=== PATIENT | male | born 1955 | race Caucasian/White ===

== ENCOUNTER 2017-03-24 16:09 | Outpatient (CLI) | payer OTHER | END 2017-03-24 16:10 | disposition home or self-care (01) | LOC: CTENTCT 16:09 | PROVIDERS: ATTEND Specialist | DX: J32.9 Chronic sinusitis, unspecified (principal) | CPT/HCPCS: 70486 ==

== ENCOUNTER 2017-06-24 16:59 | Outpatient (CLI) | payer BC | END 2017-06-24 17:00 | disposition home or self-care (01) | LOC: BICRAD 16:59 | PROVIDERS: ATTEND Internal Medicine | DX: R10.9 Unspecified abdominal pain (principal); K59.00 Constipation, unspecified | CPT/HCPCS: 74019 ==

== ENCOUNTER 2017-07-20 10:03 | Observation (INO) | payer BC ==
[2017-07-20 11:04] LABS: #Basophils 0.1 thou/uL (0.0-0.2); #Eosinphils 0.1 thou/uL (0.0-0.7); #Lymphocytes 1.4 thou/uL (1.20-3.40); #Monocytes 0.8 thou/uL (0.11-0.59); #Neutrophils 3.4 thou/uL (1.40-6.50); %Basophils 1.2 % (0.0-1.0); %Eosinophils 1.8 % (0.0-10.0); %Lymphocytes 24.3 % (21.0-51.0); %Monocytes 14.3 % (0.0-10.0); %Neutrophils 58.4 % (42.0-75.0); Hemoglobin 13.8 g/dL (14.0-18.0); Mean Corpuscular Hemoglobin 29.1 pg (27.0-31.0); Mean Corpuscular Volume 88.2 fl (80.0-94.0); Mean Platelet Volume 7.5 fL (7.4-10.4); Platelet Count 175 thou/uL (130-400); RBC Distribution Width 14.7 % (11.5-14.5); Red Blood Cell (RBC) Count 4.72 mill/uL (4.70-6.10); White Blood Cell (WBC) Count 5.8 thou/uL (4.8-10.8)
--- NOTE | 2017-07-20 11:07 | RAD ---
PORTABLE AP CHEST RADIOGRAPH: Date: 07-20-17 History: Chest pain, shortness of breath. Comparison: 12-24-16 FINDINGS: There is mild elevation of the left hemidiaphragm with atelectasis at the left lung base. The lungs o therwise appear clear. The cardiac silhouette is stable in size and magnified by projection. Pulmonar y vasculature is within normal limits. No other interval change. IMPRESSION: Mild elevation left hemidiaphragm with atelectasis at the left lung base. There is otherwise no acute cardiopulmonary process. POS: [facility]
[2017-07-20 11:29] LABS: ALT (SGPT) 24 U/L (8-55); AST (SGOT) 17 U/L (5-34); Alkaline Phosphatase 64 U/L (40-150); Anion Gap 16 mmol/L (10-20); BUN (Urea Nitrogen) 18 mg/dL (8.4-25.7); Bilirubin, Total 0.4 mg/dL (0.2-1.2); CK (CPK) 113 U/L (30-200); Calc. Creatinine Clearance 0 mL/min (70-130); Calcium 9.5 mg/dL (7.8-10.44); Carbon Dioxide 24 mmol/L (23-31); Chloride 103 mmol/L (98-107); Estimated GFR-MDRD Greater than 90; Globulin 2.9 g/dL (2.4-3.5); Glucose 119 mg/dL (80-115); Lipase 32 U/L (8-78); Potassium 4.3 mmol/L (3.5-5.1); Protein, Total 6.9 g/dL (5.8-8.1); Sodium 139 mmol/L (136-145)
[2017-07-20 11:33] LABS: CKMB 2.3 ng/mL (0-6.6); Troponin I Less than 0.010 ng/mL (< 0.028)
[2017-07-20] MEDS ORDERED: ISOVUE-370 76%-LOCM 1 ML ONE (12:47)
--- NOTE | 2017-07-20 13:39 | CT ---
CT ANGIOGRAM THORAX WITH IV CONTRAST AND 3D RECONSTRUCTIONS: Date: 07-20-17 History: Chest pain, shortness of breath. Comparison: 12-24-16 FINDINGS: No filling defects are seen in the pulmonary arteries to suggest pulmonary embolus. Thoracic aorta is normal in caliber without evidence of an aortic dissection. Minimal vascular calcifications are seen in the thoracic aorta. There is scattered atelectasis in the lungs bilaterally likely related to expiratory phase of imaging and respiratory motion as well. No discrete pulmonary nodule, mass, or pleural effusion is seen in the lungs bilaterally. Post-surgical changes are seen in the region of the pancreatic tail, unchanged from prior exam. There has been no interval change from prior exam. IMPRESSION: 1. No CT evidence of a pulmonary embolus. 2. Very tiny pericardial effusion. POS: [facility]
[2017-07-20] MEDS ORDERED: Nitroglycerin 0.4 MG TAB (25 Tab Bottle) ONE (15:53)
[2017-07-20] MEDS ORDERED: Ondansetron HCl/PF 4 MG/2 ML Vial ONE (16:38)
[2017-07-20 18:03] LABS: Troponin I Less than 0.010 ng/mL (< 0.028)
[2017-07-20] MEDS ORDERED: Acetaminophen 325 MG TAB PO PRN ×2 (19:16→21:16)
[2017-07-20] MEDS ORDERED: Ondansetron HCl/PF 4 MG/2 ML Vial IVP PRN ×2 (19:16→21:16)
[2017-07-20] MEDS ORDERED: Ondansetron ODT 4 MG TAB SL PRN (19:16)
[2017-07-20 20:14] VITALS: BMI 32.1
[2017-07-20] MEDS ORDERED: traMADol HCl 50 MG TAB PO PRN (20:51)
--- NOTE | 2017-07-20 20:55 | PDOC.PN ---
- Subjective Encounter Start Date: 07/20/17 Encounter Start Time: 19:00 Patient seen and examined. - Objective MAR Reviewed: Yes Vital Signs & Weight: Vital Signs (12 hours) Temp Pulse Resp BP Pulse Ox 07/20/17 19:28 98.4 F 64 18 131/69 92 L Weight Weight 224 lb 6.4 oz Result Diagrams: 07/20/17 10:59 07/20/17 10:59 Radiology Reviewed by me: Yes (CXR/CTA chest - No PE) EKG Reviewed by me: Yes (SR) Phys Exam - Physical Examination Constitutional: NAD HEENT: PERRLA, moist MMs, sclera anicteric Neck: no nodes, no JVD, supple Respiratory: no wheezing, no rales, no rhonchi, clear to auscultation bilateral Cardiovascular: RRR, no significant murmur, no rub no heaves/pulsations Gastrointestinal: soft, non-tender, no distention, positive bowel sounds Musculoskeletal: no edema Neurological: non-focal, normal sensation, moves all 4 limbs Psychiatric: normal affect, A&O x 3 Skin: no rash Dx/Plan - Plan * Dictated Laboratory Tests 07/20/17 07/20/17 07/20/17 10:48 10:59 17:25 Troponin I Less than 0.010 Less than 0.010 B-Natriuretic Peptide 28.2 Review of Systems - Review of Systems Constitutional: negative: fever, chills, sweats, weakness, malaise Eyes: negative: Pain, Vision Change, Conjunctivae Inflammation, Eyelid Inflammation, Redness ENT: negative: Ear Pain, Ear Discharge, Nose Pain, Nose Discharge, Nose Congestion, Mouth Pain, Mouth Swelling, Throat Pain, Throat Swelling, Other Respiratory: negative: Cough, Dry, Shortness of Breath, Hemoptysis, SOB with Excertion, Pleuritic Pain, Sputum, Wheezing Cardiovascular: chest pain. negative: palpitations, orthopnea, paroxysmal nocturnal dyspnea, edema, light headedness Gastrointestinal: negative: Nausea, Vomiting, Abdominal Pain, Diarrhea, Constipation, Melena, Hematochezia Genitourinary: negative: Dysuria, Frequency, Incontinence, Hematuria, Retention , Other Musculoskeletal: negative: Neck Pain, Shoulder Pain, Arm Pain, Back Pain, Hand Pain, Leg Pain, Foot Pain Skin: negative: Rash, Lesions, Misael, Bruising Neurological: negative: Weakness, Numbness, Incoordination, Change in Speech, Confusion, Seizures, Other - Medications/Allergies Allergies/Adverse Reactions: Allergies Allergy/AdvReac Type Severity Reaction Status Date / Time codeine Allergy Verified 07/20/17 20:04 Penicillins Allergy Verified 07/20/17 20:04 Sulfa (Sulfonamide Allergy Verified 07/20/17 20:04 Antibiotics) Medications: Current Medications Acetaminophen (Tylenol) 650 mg PO Q4H PRN PRN Reason: Headache/Fever or Pain Stop: 07/21/17 05:04 Divalproex Sodium (Depakote Er) 1,000 mg PO HS NAHUM Non-Formulary Medication (Canagliflozin [Invokana]) 300 mg PO DAILY NAHUM Non-Formulary Medication (Rivaroxaban [Xarelto]) 20 mg PO QPM NAHUM Olanzapine (Zyprexa) 2.5 mg PO HS NAHUM Ondansetron HCl (Zofran) 4 mg IVP Q6H PRN PRN Reason: Nausea/Vomiting Stop: 07/21/17 05:04 Ondansetron HCl (Zofran Odt) 4 mg SL Q6H PRN PRN Reason: Nausea/Vomiting Stop: 07/21/17 05:04 Propranolol HCl (Inderal La) 80 mg PO DAILY NAHUM Simvastatin (Zocor) 20 mg PO HS NAHUM Tramadol HCl (Ultram) 50 mg PO QID PRN PRN Reason: Pain
[2017-07-20 20:56] LABS: Troponin I Less than 0.010 ng/mL (< 0.028)
[2017-07-20] MEDS ORDERED: Dextrose 50% Abboject 50 ML SYRINGE SLOW IVP PRN (20:59)
[2017-07-20] MEDS ORDERED: Insulin Regular 300 UNITS/3 ML VIAL SC PRN ×2 (20:59)
[2017-07-20] MEDS ORDERED: Dextrose 5% in Water 1,000 ML IV PRN (20:59)
[2017-07-20] MEDS ORDERED: OLANZapine 2.5 MG TAB PO SCH (21:00)
[2017-07-20] MEDS ORDERED: Rivaroxaban 10 MG TAB PO SCH (21:00)
[2017-07-20] MEDS ORDERED: INSULIN DETEMIR SC SCH (21:00)
[2017-07-20] MEDS ORDERED: Simvastatin 20 MG TAB PO SCH (21:00)
[2017-07-20] MEDS ORDERED: ADMIXTURE FEE SC SCH (21:00)
[2017-07-20] MEDS ORDERED: Calcium Carbonate 500 MG ChewTAB PO PRN (21:16)
[2017-07-20] MEDS ORDERED: Ondansetron ODT 4 MG TAB PO PRN (21:16)
[2017-07-20] MEDS ORDERED: Senokot 8.6 MG TAB PO PRN (21:16)
[2017-07-20] MEDS ORDERED: Nitroglycerin 0.4 MG TAB (25 Tab Bottle) PO PRN (21:16)
--- NOTE | 2017-07-20 21:27 | HP ---
DATE OF ADMISSION: 07/20/2017 PRIMARY CARE PHYSICIAN: Dr. Jazmin Tamayo. PRIMARY DATA REPORTING ANALYST: Dr. Milan Gamez. CHIEF COMPLAINT: Chest discomfort. HISTORY OF PRESENT ILLNESS: Patient is a 62-year-old male with hypertension, diabetes mellitus type 2, history of deep venous thrombosis on anticoagulation presented to the emergency room with chest di scomfort. The chest discomfort started 2 days ago. The pain is substernal without any aggravating o r relieving factor. He had some associated shortness of breath without any diaphoresis, nausea, vomi ting, lightheadedness, or palpitations. He denies any syncope, recent immobilization, travel, orthop galdino, or paroxysmal nocturnal dyspnea. No cough, shortness of breath, wheezing reported. He is compl iant with all of his medications. In the emergency room, his initial vital signs showed temperature 98.7, respirations 18, pulse of 75, blood pressure of 143/84 with O2 saturation 95% on room air. His EKG showed sinus rhythm with right bundle branch block and left anterior fascicular block. His initial troponin was negative. He rece ived morphine with sublingual nitroglycerin, aspirin, and IV fluids in the emergency room. After nit roglycerin, his pain partially improved. PAST MEDICAL HISTORY: 1. Diabetes mellitus, type 2. 2. History of deep venous thrombosis and pulmonary embolism on Xarelto. 3. Bipolar disorder. 4. Hyperlipidemia. 5. Gastroesophageal reflux disease. 6. Benign prostatic hypertrophy. 7. History of renal stones. 8. Resting tremors. PAST SURGICAL HISTORY: 1. Appendectomy. 2. Cholecystectomy. 3. Partial pancreatectomy. 4. History of sinus surgery with septoplasty. CURRENT HOME MEDICATIONS: Xarelto 20 mg daily, Levemir 100 units b.i.d., Depakote 1000 mg at bedtime , Invokana 300 mg daily, Zyprexa 2.5 mg at bedtime, omeprazole 20 mg daily, propranolol extended-rele ase 80 mg daily, simvastatin 20 mg daily, tramadol as needed. FAMILY HISTORY: Father of bone cancer. SOCIAL HISTORY: Patient is . Denies any current use of alcohol, tobacco, or drug use. He cu rrently lives at home with his family. Review of systems, physical examination, laboratory findings, radiology examination, please refer to my progress note. IMPRESSION: 1. Chest discomfort. His chest pain is somewhat reproducible. Patient had a negative Cardiolite st ress test in 12/2016. Pulmonary embolism has been ruled out. He denies significant improvement in t he pain after nitroglycerin. Patient will be monitored overnight. I gave him an option of consultin g Cardiology while in the hospital or follow up with Dr. Gamez as outpatient. Patient prefers to see Dr. Gamez as outpatient. 2. Diabetes mellitus, type 2. We will continue Levemir with sliding scale. 3. History of deep venous thrombosis and pulmonary embolism. We will continue Xarelto. 4. Bipolar disorder. We will continue his home medications. 5. Resting tremors. 6. Hyperlipidemia. 7. Gastroesophageal reflux disease. 8. Benign prostatic hypertrophy. 9. Chronic anemia. 10. Obesity with a BMI 32.2. Plan of care was discussed with patient in detail. He stated understanding. DISPOSITION: Probably in a.m. if his troponins are negative.
[2017-07-21] MEDS ORDERED: guaiFENesin ER 600 MG TAB PO SCH ×2 (01:30→09:00)
[2017-07-21] MEDS ORDERED: Propranolol HCl LA 80 MG CAP PO SCH (09:00)
[2017-07-21] MEDS ORDERED: Canagliflozin [Invokana] 300 MG PO SCH (09:00)
[2017-07-21] MEDS ORDERED: Docusate 100 MG CAP PO SCH (09:00)
[2017-07-21] MEDS ORDERED: ADMIXTURE FEE SC SCH (09:00)
[2017-07-21] MEDS ORDERED: Famotidine 20 MG TAB PO SCH (09:00)
[2017-07-21] MEDS ORDERED: INSULIN DETEMIR SC SCH (09:00)
[2017-07-21] MEDS ORDERED: Aspirin 81 mg Enteric Coated Tablet PO SCH (09:00)
[2017-07-21 12:38] VITALS: BP 141/76; TEMP 98.4
--- NOTE | 2017-07-21 22:15 | DIS ---
DATE OF DISCHARGE: 07/21/2017 DISCHARGE DISPOSITION: Home. FOLLOWUP: 1. Follow up with primary care physician, Dr. Jazmin Tamayo in 1 week. 2. Follow up with Dr. Milan Gamez on 07/27/2017 at 2:00 p.m. INPATIENT CONSULTANTS: None. ALLERGIES: The patient is allergic to CODEINE, PENICILLIN, AND SULFA. BRIEF HOSPITAL COURSE: Patient is a 62-year-old male with hypertension, diabetes mellitus type 2, hi story of deep venous thrombosis on anticoagulation, who presented to the emergency room with chest di scomfort that has been ongoing for the last 2 days without any aggravating or relieving factor. He a lso had some associated shortness of breath, without any other symptoms. On examination, chest pain was reproducible on palpation. Please refer to the history and physical dated 07/20/2017 for further details. The patient was admitted to the hospital with a diagnosis of chest discomfort, rule out acute coronar y syndrome. Serial cardiac enzymes were normal. The patient had a negative Cardiolite stress test i n 12/2016. CT angiogram of the chest was negative for pulmonary embolism. Per patient request, he w ill follow up with Dr. Gamez next week. The patient was advised to return to emergency room if he develops any new chest pain. FINAL DIAGNOSES: 1. Chest discomfort, acute coronary syndrome ruled out. 2. Diabetes mellitus type 2. 3. History of deep venous thrombosis and pulmonary embolism on anticoagulation. 4. Bipolar disorder. 5. Hyperlipidemia. 6. Benign prostatic hypertrophy. 7. Obesity with a BMI 32.2. 8. Chronic anemia. 9. Bipolar disorder. 10. Resting tremors.
--- NOTE | 2017-07-24 13:42 | EKG ---
Test Reason : Blood Pressure : / mmHG Vent. Rate : 075 BPM Atrial Rate : 075 BPM P-R Int : 166 ms QRS Dur : 120 ms QT Int : 388 ms P-R-T Axes : 031 -45 020 degrees QTc Int : 433 ms Normal sinus rhythm Right bundle branch block Left anterior fascicular block Bifascicular block Abnormal ECG Confirmed by XAVI INIGUEZ M.D. ([id number]), clinical editor HAVEN GREENWOOD ([id number]) on 07/24/2017 1:41:43 PM Referred By: Confirmed By:XAVI INIGUEZ M.D.
== END 2017-07-21 14:36 | disposition home or self-care (01) ==
LOC: ERS 10:03 → 2SW 18:54
PROVIDERS: ADMIT Internal Medicine; ATTEND Internal Medicine
DX: R07.89 Other chest pain (principal); E11.9 Type 2 diabetes mellitus without complications; F31.9 Bipolar disorder, unspecified; E78.5 Hyperlipidemia, unspecified; N40.0 Benign prostatic hyperplasia without lower urinary tract symptoms; K21.9 Gastro-esophageal reflux disease without esophagitis; E66.9 Obesity, unspecified; D64.9 Anemia, unspecified; R25.1 Tremor, unspecified; Z68.32 Body mass index [BMI] 32.0-32.9, adult; Z79.01 Long term (current) use of anticoagulants; Z79.4 Long term (current) use of insulin; Z79.899 Other long term (current) drug therapy; Z88.0 Allergy status to penicillin; Z88.2 Allergy status to sulfonamides; Z88.5 Allergy status to narcotic agent; Z90.49 Acquired absence of other specified parts of digestive tract; Z90.411 Acquired partial absence of pancreas; Z98.890 Other specified postprocedural states; Z86.711 Personal history of pulmonary embolism; Z86.718 Personal history of other venous thrombosis and embolism
CPT/HCPCS: 36415; 36416; 71045; 71275; 80053; 82550; 82553; 83690; 83880; 84484; 85025; 93005; 94760; 96361; 96374; 96375; G0378; J1815; J2270; J2405

== ENCOUNTER 2017-07-26 10:46 | Emergency (ER) | payer BC ==
--- NOTE | 2017-07-26 13:05 | RAD ---
TWO VIEWS CHEST: HISTORY: Cough. COMPARISON: One-view chest of 07/20/2017. FINDINGS: Linear atelectasis in the left lung base. Lungs otherwise appear clear. There is a small nodule in the peripheral right lung consistent with a small granuloma. This was noted on recent CT of 07/20/19 18. The linear opacity in the lower left lung was also noted on the recent CT. No effusion. Heart size within normal range. No evidence of vascular congestion. IMPRESSION: Linear atelectasis in the left lower lung again noted. No acute interval change from recent CT of . POS: [facility]
== END 2017-07-26 13:43 | disposition home or self-care (01) ==
LOC: ERS 10:46
DX: J18.9 Pneumonia, unspecified organism (principal); E78.1 Pure hyperglyceridemia; E78.5 Hyperlipidemia, unspecified; F31.9 Bipolar disorder, unspecified; Z86.718 Personal history of other venous thrombosis and embolism; Z86.711 Personal history of pulmonary embolism
CPT/HCPCS: 71046

== ENCOUNTER 2017-08-04 14:36 | Emergency (ER) | payer BC ==
--- NOTE | 2017-08-04 15:09 | RAD ---
PORTABLE CHEST ONE VIEW: Date: 08-04-17 Time: 3:05 p.m. History: Chest pain. FINDINGS: Comparison is made with exam of 07-20-17. The heart size is normal. No focal areas of consolidation, pneumothorax, or pleural effusions are see n. IMPRESSION: No acute process. POS: [facility]
[2017-08-04 15:12] LABS: #Eosinphils 0.1 thou/uL (0.0-0.7); #Lymphocytes 2.5 thou/uL (1.20-3.40); #Monocytes 0.7 thou/uL (0.11-0.59); #Neutrophils 5.9 thou/uL (1.40-6.50); %Basophils 0.4 % (0.0-1.0); %Eosinophils 0.6 % (0.0-10.0); %Lymphocytes 27.1 % (21.0-51.0); %Monocytes 7.8 % (0.0-10.0); %Neutrophils 64.1 % (42.0-75.0); Hemoglobin 13.9 g/dL (14.0-18.0); Mean Corpuscular HGB CONC 32.7 g/dL (32.0-36.0); Mean Corpuscular Hemoglobin 29.1 pg (27.0-31.0); Mean Platelet Volume 7.7 fL (7.4-10.4); Platelet Count 193 thou/uL (130-400); RBC Distribution Width 14.9 % (11.5-14.5); Red Blood Cell (RBC) Count 4.78 mill/uL (4.70-6.10); White Blood Cell (WBC) Count 9.3 thou/uL (4.8-10.8)
[2017-08-04 15:28] LABS: ALT (SGPT) 28 U/L (8-55); AST (SGOT) 24 U/L (5-34); Alkaline Phosphatase 55 U/L (40-150); Anion Gap 17 mmol/L (10-20); BUN (Urea Nitrogen) 20 mg/dL (8.4-25.7); Bilirubin, Total 0.4 mg/dL (0.2-1.2); CK (CPK) 167 U/L (30-200); Calc. Creatinine Clearance 0 mL/min (70-130); Calcium 9.4 mg/dL (7.8-10.44); Carbon Dioxide 22 mmol/L (23-31); Chloride 105 mmol/L (98-107); Estimated GFR-MDRD Greater than 90; Glucose 146 mg/dL (80-115); Potassium 4.4 mmol/L (3.5-5.1); Sodium 140 mmol/L (136-145)
[2017-08-04 15:31] LABS: CKMB 2.6 ng/mL (0-6.6); Troponin I Less than 0.010 ng/mL (< 0.028)
[2017-08-04 21:22] LABS: Bilirubin Negative (Negative); Blood, Urine Negative (Negative); Clarity CLEAR (Clear); Glucose, Urine (Dipstick) >=1000 mg/dL (Negative); Leukocyte Negative (Negative); Nitrite Negative (Negative); Protein, Urine (Dipstick) Negative (Neg-Trace); Specific Gravity, Urine 1.034 (1.002-1.036); pH, Urine 6.5 (5.0-9.0)
== END 2017-08-04 23:42 | disposition home or self-care (01) ==
LOC: ERS 14:36
DX: R07.81 Pleurodynia (principal); E11.9 Type 2 diabetes mellitus without complications; E78.5 Hyperlipidemia, unspecified; E78.1 Pure hyperglyceridemia; I10 Essential (primary) hypertension; F31.9 Bipolar disorder, unspecified; Z79.4 Long term (current) use of insulin; Z79.01 Long term (current) use of anticoagulants; Z79.899 Other long term (current) drug therapy; Z86.711 Personal history of pulmonary embolism; Z86.718 Personal history of other venous thrombosis and embolism
CPT/HCPCS: 36415; 71045; 80053; 81003; 82550; 82553; 83605; 84484; 85025; 93005; 96360; 96361

== ENCOUNTER 2017-12-29 13:27 | Emergency (ER) | payer BC ==
[2017-12-29 13:52] LABS: #Eosinphils 0.1 thou/uL (0.0-0.7); #Lymphocytes 2.1 thou/uL (1.20-3.40); #Monocytes 0.6 thou/uL (0.11-0.59); #Neutrophils 1.8 thou/uL (1.40-6.50); %Basophils 0.5 % (0.0-1.0); %Eosinophils 1.5 % (0.0-10.0); %Lymphocytes 45.1 % (21.0-51.0); %Monocytes 12.7 % (0.0-10.0); %Neutrophils 40.3 % (42.0-75.0); Hemoglobin 13.3 g/dL (14.0-18.0); Mean Corpuscular HGB CONC 33.8 g/dL (32.0-36.0); Mean Corpuscular Hemoglobin 28.1 pg (27.0-31.0); Mean Corpuscular Volume 83.1 fL (78.0-98.0); Mean Platelet Volume 7.8 fL (7.4-10.4); Platelet Count 200 thou/uL (130-400); RBC Distribution Width 14.9 % (11.5-14.5); Red Blood Cell (RBC) Count 4.74 mill/uL (4.70-6.10); White Blood Cell (WBC) Count 4.6 thou/uL (4.8-10.8)
--- NOTE | 2017-12-29 13:56 | RAD ---
FRONTAL VIEW CHEST: Date: 12/29/17 COMPARISON: 08/04/17. INDICATION: Chest pain. FINDINGS: Minimal patchy density of left lung base present. Right lung is grossly clear. Cardiac silhouette is accentuated by portable technique. There are leads overlying the chest, limiting detail. IMPRESSION: Mild left basilar atelectasis. POS: [place]
[2017-12-29 14:19] LABS: ALT (SGPT) 20 U/L (8-55); AST (SGOT) 19 U/L (5-34); Albumin 4.3 g/dL (3.4-4.8); Alkaline Phosphatase 59 U/L (40-150); Anion Gap 17 mmol/L (10-20); BUN (Urea Nitrogen) 21 mg/dL (8.4-25.7); Bilirubin, Total 0.5 mg/dL (0.2-1.2); CK (CPK) 124 U/L (30-200); Calc. Creatinine Clearance 0 mL/min (70-130); Calcium 9.8 mg/dL (7.8-10.44); Carbon Dioxide 22 mmol/L (23-31); Chloride 105 mmol/L (98-107); Estimated GFR-MDRD Greater than 90; Globulin 3.3 g/dL (2.4-3.5); Glucose 178 mg/dL (80-115); Potassium 4.7 mmol/L (3.5-5.1); Protein, Total 7.6 g/dL (5.8-8.1); Sodium 139 mmol/L (136-145)
[2017-12-29 14:23] LABS: CKMB 2.4 ng/mL (0-6.6); Troponin I Less than 0.010 ng/mL (< 0.028)
[2017-12-29] MEDS ORDERED: Morphine 4 MG/ML VIAL ONE (15:13)
== END 2017-12-29 16:33 | disposition home or self-care (01) ==
LOC: ERS 13:27
DX: R07.9 Chest pain, unspecified (principal); K02.9 Dental caries, unspecified; R53.81 Other malaise; E11.9 Type 2 diabetes mellitus without complications; E78.5 Hyperlipidemia, unspecified; I10 Essential (primary) hypertension; F31.9 Bipolar disorder, unspecified; Z79.1 Long term (current) use of non-steroidal anti-inflammatories (NSAID); Z79.899 Other long term (current) drug therapy
CPT/HCPCS: 71045; 80053; 82553; 84484; 85025; 93005; 96361; 96374; J2270

== ENCOUNTER 2018-01-06 16:17 | Inpatient (IN) | payer BC ==
[~2018-01-06 16:17] MED LIST: Iopamidol 370 76% 100 ML VIAL ONE
[2018-01-06] MEDS ORDERED: Ondansetron HCl/PF 4 MG/2 ML Vial ONE ×2 (16:38→16:39)
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
--- NOTE | 2018-01-06 17:19 | CT ---
CERVICAL SPINE CT NONCONTRAST: 01/06/18 CLINICAL HISTORY: Injury with neck pain. FINDINGS: There is no evidence of acute fracture. Prominent end plate degenerative changes are present centered at the C5-6 level. Trace spondylolisthesis at C3-4 is seen. Craniocervical junction is intact. IMPRESSION: Degenerative change of the cervical spine, without acute fracture identified. POS: [facility]
[2018-01-06 17:49] LABS: #Eosinphils 0.1 thou/uL (0.0-0.7); #Lymphocytes 1.6 thou/uL (1.20-3.40); #Monocytes 0.6 thou/uL (0.11-0.59); #Neutrophils 2.3 thou/uL (1.40-6.50); %Basophils 0.7 % (0.0-1.0); %Eosinophils 1.7 % (0.0-10.0); %Lymphocytes 34.6 % (21.0-51.0); %Monocytes 13.2 % (0.0-10.0); %Neutrophils 49.9 % (42.0-75.0); Hemoglobin 12.3 g/dL (14.0-18.0); Mean Corpuscular HGB CONC 34.3 g/dL (32.0-36.0); Mean Corpuscular Hemoglobin 28.4 pg (27.0-31.0); Mean Corpuscular Volume 82.8 fL (78.0-98.0); Mean Platelet Volume 7.8 fL (7.4-10.4); Platelet Count 170 thou/uL (130-400); RBC Distribution Width 14.8 % (11.5-14.5); Red Blood Cell (RBC) Count 4.32 mill/uL (4.70-6.10); White Blood Cell (WBC) Count 4.5 thou/uL (4.8-10.8)
[2018-01-06 18:14] LABS: ALT (SGPT) 20 U/L (8-55); AST (SGOT) 17 U/L (5-34); Albumin 3.8 g/dL (3.4-4.8); Alkaline Phosphatase 49 U/L (40-150); Anion Gap 17 mmol/L (10-20); BUN (Urea Nitrogen) 22 mg/dL (8.4-25.7); Bilirubin, Total 0.5 mg/dL (0.2-1.2); Calc. Creatinine Clearance 0 mL/min (70-130); Calcium 8.9 mg/dL (7.8-10.44); Carbon Dioxide 20 mmol/L (23-31); Chloride 103 mmol/L (98-107); Estimated GFR-MDRD Greater than 90; Globulin 2.7 g/dL (2.4-3.5); Glucose 119 mg/dL (80-115); Lipase 42 U/L (8-78); Potassium 4.1 mmol/L (3.5-5.1); Protein, Total 6.5 g/dL (5.8-8.1); Sodium 136 mmol/L (136-145)
[2018-01-06 18:18] LABS: Troponin I Less than 0.010 ng/mL (< 0.028)
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
[2018-01-06] MEDS ORDERED: Acetaminophen 500 MG TAB ONE (18:42)
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
[2018-01-06] MEDS ORDERED: Ondansetron HCl/PF 4 MG/2 ML Vial IVP PRN (19:44)
[2018-01-06] MEDS ORDERED: Dextrose 5% in Water 1,000 ML IV PRN (19:44)
[2018-01-06] MEDS ORDERED: HumaLOG 300 UNITS/3 ML VIAL SC PRN (19:44)
[2018-01-06] MEDS ORDERED: Dextrose 50% Abboject 50 ML SYRINGE SLOW IVP PRN (19:44)
[2018-01-06 20:29] VITALS: BMI 31.6
[2018-01-06 20:56] LABS: Troponin I Less than 0.010 ng/mL (< 0.028)
[2018-01-06] MEDS: OLANZapine 2.5 MG TAB PO SCH (22:38)
[2018-01-06] MEDS: Simvastatin 20 MG TAB PO SCH (22:38)
[2018-01-07 00:09] LABS: Troponin I Less than 0.010 ng/mL (< 0.028)
[2018-01-07] MEDS: traMADol HCl 50 MG TAB PO PRN ×2 (03:35→09:22)
[2018-01-07] MEDS: Acetaminophen 325 MG TAB PO PRN ×2 (03:35→20:40)
[2018-01-07 05:17] LABS: #Eosinphils 0.1 thou/uL (0.0-0.7); #Lymphocytes 2.1 thou/uL (1.20-3.40); #Monocytes 0.6 thou/uL (0.11-0.59); #Neutrophils 1.9 thou/uL (1.40-6.50); %Eosinophils 1.1 % (0.0-10.0); %Lymphocytes 44.9 % (21.0-51.0); %Monocytes 12.5 % (0.0-10.0); %Neutrophils 40.5 % (42.0-75.0); Mean Corpuscular HGB CONC 33.9 g/dL (32.0-36.0); Mean Corpuscular Hemoglobin 28.1 pg (27.0-31.0); Mean Corpuscular Volume 82.8 fL (78.0-98.0); Mean Platelet Volume 8.7 fL (7.4-10.4); Platelet Count 180 thou/uL (130-400); RBC Distribution Width 15.1 % (11.5-14.5); Red Blood Cell (RBC) Count 4.27 mill/uL (4.70-6.10); White Blood Cell (WBC) Count 4.7 thou/uL (4.8-10.8)
[2018-01-07 05:39] LABS: Anion Gap 13 mmol/L (10-20); BUN (Urea Nitrogen) 17 mg/dL (8.4-25.7); Calc. Creatinine Clearance 157 mL/min (70-130); Carbon Dioxide 25 mmol/L (23-31); Cardiac Risk 5.3 (Less than 4.5); Chloride 105 mmol/L (98-107); Cholesterol 112 mg/dl (< 200 Desired); Estimated GFR-MDRD Greater than 90; Glucose 92 mg/dL (80-115); HDL Cholesterol 21 mg/dL (>60 Neg Risk); LDL Cholesterol, Calculated 21 mg/dL; Potassium 4.2 mmol/L (3.5-5.1); Sodium 139 mmol/L (136-145); Triglycerides 349 mg/dL (Less than 150)
[2018-01-07] MEDS ORDERED: Aspirin 325 MG TAB PO SCH (09:00)
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
[2018-01-07] MEDS: Meclizine HCl 25 MG TAB PO PRN (15:00)
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
[2018-01-07] MEDS: Rivaroxaban 10 MG TAB PO SCH (16:59)
--- NOTE | 2018-01-07 20:30 | PDOC.PN ---
- Subjective Encounter Start Date: 01/07/18 Encounter Start Time: 13:00 Patient seen and examined for CP. c/o THOMPSON with Dizziness - unable to walk due to this. No overnight events - Objective Resuscitation Status: Resuscitation Status FULL:Full Resuscitation MAR Reviewed: Yes Vital Signs & Weight: Vital Signs (12 hours) Temp Pulse Resp BP BP BP BP 01/07/18 19:39 98.6 F 68 20 141/69 H 01/07/18 16:00 99.2 F 70 16 140/68 01/07/18 11:55 135/74 133/74 133/74 01/07/18 11:26 98.1 F 66 18 140/73 Pulse Ox 01/07/18 19:39 93 L 01/07/18 16:00 97 01/07/18 11:55 01/07/18 11:26 94 L Weight Weight 220 lb 12.8 oz I&O: 01/06/18 01/07/18 01/08/18 06:59 06:59 06:59 Intake Total 520 1700 Balance 520 1700 Result Diagrams: 01/07/18 04:27 01/07/18 04:27 Additional Labs: Accuchecks 01/07/18 01/07/18 01/06/18 16:49 10:49 21:07 POC Glucose 124 H 88 76 EKG Reviewed by me: Yes (Tele SR) Phys Exam - Physical Examination Constitutional: NAD Respiratory: no wheezing, no rhonchi Cardiovascular: RRR, no rub Gastrointestinal: soft, non-tender, no distention, positive bowel sounds Musculoskeletal: no edema Neurological: non-focal, normal sensation, moves all 4 limbs Psychiatric: normal affect, A&O x 3 Dx/Plan - Plan IMPRESSION: 1. CP - Troponins negative 2. Persistent Dizziness with Headache 3. h/o DVT/PE on Xarelto 4. DM2 5. HTN 6. HLD PLAN: MRI brain to r/o SAH Await Echo Cont other meds as below PT consult DC ASA Review of Systems - Review of Systems Respiratory: negative: Cough, Dry, Shortness of Breath, Hemoptysis, SOB with Excertion, Pleuritic Pain, Sputum, Wheezing Cardiovascular: negative: chest pain, palpitations, orthopnea, paroxysmal nocturnal dyspnea, edema, light headedness, other Gastrointestinal: negative: Nausea, Vomiting, Abdominal Pain, Diarrhea, Constipation, Melena, Hematochezia, Other - Medications/Allergies Allergies/Adverse Reactions: Allergies Allergy/AdvReac Type Severity Reaction Status Date / Time codeine Allergy Nausea Verified 01/06/18 20:34 Penicillins Allergy Nausea Verified 01/06/18 20:34 Sulfa (Sulfonamide Allergy Nausea Verified 01/06/18 20:34 Antibiotics) Medications: Current Medications Acetaminophen (Tylenol) 650 mg PO Q4H PRN PRN Reason: Headache/Fever or Pain Last Admin: 01/07/18 03:35 Dose: 650 mg Dextrose/Water (Dextrose 50%) 25 gm SLOW IVP PRN PRN PRN Reason: Hypoglycemia Divalproex Sodium (Depakote Er) 1,000 mg PO HS [facility] Last Admin: 01/06/18 22:38 Dose: 1,000 mg Glucagon (Glucagon) 1 mg IM PRN PRN PRN Reason: Hypoglycemia Dextrose/Water (D5w) 1,000 mls @ 0 mls/hr IV .Q0M PRN PRN Reason: Hypoglycemia Insulin Human Lispro (Humalog) 0 units SC .MILD SLIDING SCALE PRN PRN Reason: Mild Correctional Scale Meclizine HCl (Antivert) 25 mg PO Q8H PRN PRN Reason: Dizziness Last Admin: 01/07/18 15:00 Dose: 25 mg Olanzapine (Zyprexa) 2.5 mg PO HS [facility] Last Admin: 01/06/18 22:38 Dose: 2.5 mg Ondansetron HCl (Zofran) 4 mg IVP Q6H PRN PRN Reason: Nausea/Vomiting Pantoprazole Sodium (Protonix) 40 mg PO DAILY [facility] Last Admin: 01/07/18 09:23 Dose: 40 mg Rivaroxaban (Xarelto) 20 mg PO 1700 [facility] Last Admin: 01/07/18 16:59 Dose: Not Given Simvastatin (Zocor) 20 mg PO HS [facility] Last Admin: 01/06/18 22:38 Dose: 20 mg Tramadol HCl (Ultram) 50 mg PO QID PRN PRN Reason: Pain Last Admin: 01/07/18 09:22 Dose: 50 mg
[2018-01-07] MEDS: OLANZapine 2.5 MG TAB PO SCH (20:41)
[2018-01-07] MEDS: Simvastatin 20 MG TAB PO SCH (20:41)
[2018-01-08] MEDS: Meclizine HCl 25 MG TAB PO PRN ×2 (08:16→17:42)
[2018-01-08] MEDS: traMADol HCl 50 MG TAB PO PRN ×2 (08:16→14:13)
[2018-01-08] MEDS: Rivaroxaban 10 MG TAB PO SCH (12:04)
[2018-01-08] MEDS: Acetaminophen 325 MG TAB PO PRN ×2 (12:07→20:13)
[2018-01-08] MEDS: Simvastatin 20 MG TAB PO SCH (20:13)
[2018-01-08] MEDS: OLANZapine 2.5 MG TAB PO SCH (20:13)
--- NOTE | 2018-01-08 22:12 | PDOC.PN ---
- Subjective Encounter Start Date: 01/08/18 Encounter Start Time: 12:00 Patient seen and examined for CP. Has Left sided THOMPSON with Dizziness - worse on ambulation. No CP. No overnight events - Objective Resuscitation Status: Resuscitation Status FULL:Full Resuscitation MAR Reviewed: Yes Vital Signs & Weight: Vital Signs (12 hours) Temp Pulse Pulse Pulse Resp BP BP 01/08/18 19:26 98.4 F 69 16 01/08/18 18:59 98.6 F 72 18 01/08/18 16:18 72 77 136/98 H 139/77 01/08/18 16:00 01/08/18 15:59 98.4 F 69 16 01/08/18 11:49 98.6 F 75 20 BP BP BP Pulse Ox Pulse Ox 01/08/18 19:26 01/08/18 18:59 149/75 H 95 01/08/18 16:18 95 01/08/18 16:00 97 01/08/18 15:59 139/78 88 L 01/08/18 11:49 147/69 H 95 Weight Weight 220 lb 12.8 oz I&O: 01/07/18 01/08/18 01/09/18 06:59 06:59 06:59 Intake Total 520 1940 Balance 520 1940 Result Diagrams: 01/07/18 04:27 01/07/18 04:27 Additional Labs: Accuchecks 01/08/18 01/08/18 01/08/18 20:44 17:00 12:05 POC Glucose 154 H 116 H 168 H 01/08/18 01/08/18 09:23 05:51 POC Glucose 202 H 142 H EKG Reviewed by me: Yes (Tele SR) Phys Exam - Physical Examination Constitutional: NAD Respiratory: no wheezing, no rhonchi Cardiovascular: RRR, no rub Gastrointestinal: soft, non-tender, positive bowel sounds Musculoskeletal: no edema Neurological: moves all 4 limbs Dx/Plan - Plan IMPRESSION: 1. CP - Troponins negative 2. Persistent Dizziness with Headache - due to Postconcussion syndrome 3. h/o DVT/PE on Xarelto 4. DM2 5. HTN 6. HLD PLAN: MRI brain reviewed Dr Quiroz is ok with continuing Anticoag Echo - normal EF with diastolic dysfunction Cont other meds as below Cont to ambulate with PT Not stable to dc home due to risk of fall while on anticoag Will reassess in AM Change to inpatient status Review of Systems - Review of Systems Cardiovascular: negative: chest pain, palpitations, orthopnea, paroxysmal nocturnal dyspnea, edema, light headedness, other Gastrointestinal: negative: Nausea, Vomiting, Abdominal Pain, Diarrhea, Constipation, Melena, Hematochezia, Other - Medications/Allergies Allergies/Adverse Reactions: Allergies Allergy/AdvReac Type Severity Reaction Status Date / Time codeine Allergy Nausea Verified 01/06/18 20:34 Penicillins Allergy Nausea Verified 01/06/18 20:34 Sulfa (Sulfonamide Allergy Nausea Verified 01/06/18 20:34 Antibiotics) Medications: Current Medications Acetaminophen (Tylenol) 650 mg PO Q4H PRN PRN Reason: Headache/Fever or Pain Last Admin: 01/08/18 20:13 Dose: 650 mg Dextrose/Water (Dextrose 50%) 25 gm SLOW IVP PRN PRN PRN Reason: Hypoglycemia Divalproex Sodium (Depakote Er) 1,[address] [facility] Last Admin: 01/08/18 20:13 Dose: 1,000 mg Docusate Sodium (Colace) 100 mg PO DAILY [facility] Glucagon (Glucagon) 1 mg IM PRN PRN PRN Reason: Hypoglycemia Dextrose/Water (D5w) 1,000 mls @ 0 mls/hr IV .Q0M PRN PRN Reason: Hypoglycemia Insulin Human Lispro (Humalog) 0 units SC .MILD SLIDING SCALE PRN PRN Reason: Mild Correctional Scale Meclizine HCl (Antivert) 25 mg PO Q8H PRN PRN Reason: Dizziness Last Admin: 01/08/18 17:42 Dose: 25 mg Olanzapine (Zyprexa) 2.[address] [facility] Last Admin: 01/08/18 20:13 Dose: 2.5 mg Ondansetron HCl (Zofran) 4 mg IVP Q6H PRN PRN Reason: Nausea/Vomiting Pantoprazole Sodium (Protonix) 40 mg PO DAILY [facility] Last Admin: 01/08/18 08:16 Dose: 40 mg Rivaroxaban (Xarelto) 20 mg PO 1700 [facility] Last Admin: 01/08/18 12:04 Dose: 20 mg Simvastatin (Zocor) [address] [facility] Last Admin: 01/08/18 20:13 Dose: 20 mg Tramadol HCl (Ultram) 50 mg PO QID PRN PRN Reason: Pain Last Admin: 01/08/18 14:13 Dose: 50 mg
[2018-01-09] MEDS ORDERED: Propranolol HCl LA 80 MG CAP PO SCH (09:00)
[2018-01-09] MEDS ORDERED: Docusate 100 MG CAP PO SCH (09:00)
[2018-01-09] MEDS: Acetaminophen 325 MG TAB PO PRN (10:30)
[2018-01-09] MEDS: Propranolol HCl 20 MG TAB PO SCH ×2 (10:30→21:05)
[2018-01-09] MEDS: Polyethylene Glycol 3350 17 GM Packet PO SCH (10:30)
[2018-01-09] MEDS: Tamsulosin HCl 0.4 MG CAP PO SCH (10:30)
[2018-01-09] MEDS: Senokot S 8.6-50 MG TAB PO SCH ×2 (10:31→21:06)
[2018-01-09] MEDS: Rivaroxaban 10 MG TAB PO SCH (19:12)
[2018-01-09] MEDS: Insulin Regular 300 UNITS/3 ML VIAL SC PRN ×2 (19:12→21:06)
[2018-01-09] MEDS ORDERED: Insulin Glargine 25 UNITS in Pre-Filled Syringe SC SCH (21:00)
[2018-01-09] MEDS: OLANZapine 2.5 MG TAB PO SCH (21:05)
[2018-01-09] MEDS: Simvastatin 20 MG TAB PO SCH (21:05)
--- NOTE | 2018-01-09 22:43 | PDOC.PN ---
- Subjective Encounter Start Date: 01/09/18 Encounter Start Time: 13:00 Patient seen and examined for CP/Dizziness. Dizziness and headache still the same. Unstable gait per patient report. No overnight events - Objective Resuscitation Status: Resuscitation Status FULL:Full Resuscitation MAR Reviewed: Yes Vital Signs & Weight: Vital Signs (12 hours) Temp Pulse Resp BP BP Pulse Ox 01/09/18 20:00 98.9 F 74 17 01/09/18 18:30 98.9 F 74 17 140/67 88 L 01/09/18 15:57 99.1 F 72 24 H 154/74 H 154/74 H 91 L 01/09/18 11:27 97.4 F L 72 17 148/71 H 91 L Weight Weight 220 lb 12.8 oz I&O: 01/08/18 01/09/18 01/10/18 06:59 06:59 06:59 Intake Total 1939 Balance 1939 Result Diagrams: 01/07/18 04:27 01/07/18 04:27 Additional Labs: Accuchecks 01/09/18 01/09/18 01/09/18 21:03 17:06 11:11 POC Glucose 209 H 197 H 241 H 01/09/18 03:32 POC Glucose 169 H EKG Reviewed by me: Yes (Tele SR) Phys Exam - Physical Examination Constitutional: NAD Respiratory: no wheezing, no rhonchi Cardiovascular: RRR, no rub Gastrointestinal: soft, non-tender, positive bowel sounds Musculoskeletal: no edema Neurological: non-focal, normal sensation, moves all 4 limbs Psychiatric: normal affect, A&O x 3 Dx/Plan - Plan IMPRESSION: 1. CP - Troponins negative - Normal EF on Echo 2. Persistent Dizziness with Headache - due to Postconcussion syndrome 3. h/o DVT/PE on Xarelto 4. DM2 - on sliding scale 5. HTN 6. HLD PLAN: Start Lantus at 25 units BID Dizziness and Balance program as outpt Still has dizziness with headache - worse on ambulation Cont to ambulate with PT Cont other meds as below Cont to monitor DC later today or in AM if stable Fall precautions Cont Anticoag Neurology input appreciated Resume Inderal and Flomax Review of Systems - Review of Systems Respiratory: negative: Cough, Dry, Shortness of Breath, Hemoptysis, SOB with Excertion, Pleuritic Pain, Sputum, Wheezing Cardiovascular: negative: chest pain, palpitations, orthopnea, paroxysmal nocturnal dyspnea, edema, light headedness, other - Medications/Allergies Allergies/Adverse Reactions: Allergies Allergy/AdvReac Type Severity Reaction Status Date / Time codeine Allergy Nausea Verified 01/06/18 20:34 Penicillins Allergy Nausea Verified 01/06/18 20:34 Sulfa (Sulfonamide Allergy Nausea Verified 01/06/18 20:34 Antibiotics) Medications: Current Medications Acetaminophen (Tylenol) 650 mg PO Q4H PRN PRN Reason: Headache/Fever or Pain Last Admin: 01/09/18 10:30 Dose: 650 mg Dextrose/Water (Dextrose 50%) 25 gm SLOW IVP PRN PRN PRN Reason: Hypoglycemia Divalproex Sodium (Depakote Er) 1,000 mg PO [facility] Last Admin: 01/09/18 21:05 Dose: 1,000 mg Glucagon (Glucagon) 1 mg IM PRN PRN PRN Reason: Hypoglycemia Dextrose/Water (D5w) 1,000 mls @ 0 mls/hr IV .Q0M PRN PRN Reason: Hypoglycemia Insulin Glargine 25 units/ (Miscellaneous Medication) 0.25 mls @ 0 mls/hr SC [facility] Last Admin: 01/09/18 21:06 Dose: 0.25 mls Insulin Glargine 25 units/ (Miscellaneous Medication) 0.25 mls @ 0 mls/hr [place] [facility] Insulin Human Regular (Humulin R) 0 units SC .MODERATE SLIDING SC PRN PRN Reason: Moderate Correctional Scale Last Admin: 01/09/18 19:12 Dose: 2 units Insulin Human Regular (Humulin R) 0 units SC .BEDTIME SLIDING SC PRN PRN Reason: Bedtime Correctional Scale Last Admin: 01/09/18 21:06 Dose: 2 unit Meclizine HCl (Antivert) 25 mg PO Q8H PRN PRN Reason: Dizziness Last Admin: 01/08/18 17:42 Dose: 25 mg Olanzapine (Zyprexa) 2.5 mg PO [facility] Last Admin: 01/09/18 21:05 Dose: 2.5 mg Ondansetron HCl (Zofran) 4 mg IVP Q6H PRN PRN Reason: Nausea/Vomiting Pantoprazole Sodium (Protonix) 40 mg PO DAILY [facility] Last Admin: 01/09/18 10:30 Dose: 40 mg Polyethylene Glycol (Miralax) 17 gm PO DAILY [facility] Last Admin: 01/09/18 10:30 Dose: 17 gm Propranolol HCl (Inderal) 20 mg PO BID [facility] Last Admin: 01/09/18 21:05 Dose: 20 mg Rivaroxaban (Xarelto) 20 mg PO 1700 [facility] Last Admin: 01/09/18 19:12 Dose: 20 mg Senna/Docusate Sodium (Senokot S) 1 tab PO BID [facility] Last Admin: 01/09/18 21:06 Dose: Not Given Simvastatin (Zocor) 20 mg PO HS [facility] Last Admin: 01/09/18 21:05 Dose: 20 mg Tamsulosin HCl (Flomax) 0.4 mg PO DAILY [facility] Last Admin: 01/09/18 10:30 Dose: 0.4 mg Tramadol HCl (Ultram) 50 mg PO QID PRN PRN Reason: Pain Last Admin: 01/08/18 14:13 Dose: 50 mg
[2018-01-09] MEDS ORDERED: Bisacodyl 10 MG SUPP PR PRN (22:47)
[2018-01-10] MEDS: Insulin Regular 300 UNITS/3 ML VIAL SC PRN ×2 (02:17→06:25)
[2018-01-10] MEDS ORDERED: Insulin Glargine 25 UNITS in Pre-Filled Syringe SC SCH (09:00)
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
[2018-01-10] MEDS: Senokot S 8.6-50 MG TAB PO SCH (09:22)
[2018-01-10] MEDS: Tamsulosin HCl 0.4 MG CAP PO SCH (09:23)
[2018-01-10] MEDS: Propranolol HCl 20 MG TAB PO SCH (09:23)
[2018-01-10] MEDS: Polyethylene Glycol 3350 17 GM Packet PO SCH (09:23)
[2018-01-10] MEDS: Acetaminophen 325 MG TAB PO PRN (09:32)
[2018-01-10 16:09] VITALS: BP 132/73; TEMP 98.5
[2018-01-10] MEDS: Rivaroxaban 10 MG TAB PO SCH (17:48)
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
== END 2018-01-10 18:47 | disposition home or self-care (01) | DRG 313 ==
LOC: ERS 16:17 → 2SW 19:23 → OBSVTOIN 01-08 13:56
PROVIDERS: ADMIT Internal Medicine; ATTEND Internal Medicine
DX: R07.9 Chest pain, unspecified (principal); E11.9 Type 2 diabetes mellitus without complications; I10 Essential (primary) hypertension; E78.5 Hyperlipidemia, unspecified; R42 Dizziness and giddiness; F07.81 Postconcussional syndrome; V29.40XD Motorcycle driver injured in collision with unspecified motor vehicles in traffic accident, subsequent encounter
CPT/HCPCS: 36415; 36416; 70450; 70551; 71260; 72125; 74177; 80048; 80053; 80061; 82553; 83690; 84484; 85025; 85730; 93005; 93306; 96361; 96374; 96375; G8978-GP-CI; G8979-GP-CI; G8980-GP-CI; J1815; J2270; J2405

== ENCOUNTER 2018-01-16 23:18 | Observation (INO) | payer BC ==
[2018-01-17] MEDS ORDERED: diphenhydrAMINE 50 MG/ML VIAL ONE (00:50)
[2018-01-17] MEDS ORDERED: Metoclopramide 10 MG/10 ML UDCUP ONE (00:50)
[2018-01-17] MEDS ORDERED: Metoclopramide HCl 10 MG/2 ML VIAL ONE (00:51)
[2018-01-17 01:03] LABS: #Eosinphils 0.1 thou/uL (0.0-0.7); #Lymphocytes 1.8 thou/uL (1.20-3.40); #Monocytes 0.4 thou/uL (0.11-0.59); #Neutrophils 2.7 thou/uL (1.40-6.50); %Basophils 0.9 % (0.0-1.0); %Eosinophils 1.3 % (0.0-10.0); %Lymphocytes 35.9 % (21.0-51.0); %Monocytes 8.7 % (0.0-10.0); %Neutrophils 53.1 % (42.0-75.0); Hemoglobin 12.7 g/dL (14.0-18.0); Mean Corpuscular HGB CONC 33.5 g/dL (32.0-36.0); Mean Corpuscular Hemoglobin 27.8 pg (27.0-31.0); Mean Corpuscular Volume 82.9 fL (78.0-98.0); Mean Platelet Volume 7.7 fL (7.4-10.4); Platelet Count 187 thou/uL (130-400); RBC Distribution Width 15.3 % (11.5-14.5); Red Blood Cell (RBC) Count 4.58 mill/uL (4.70-6.10)
[2018-01-17 01:13] LABS: INR-International Normal Ratio 1.9; Prothrombin Time 22.2 SEC (12.0-14.7)
[2018-01-17 01:26] LABS: ALT (SGPT) 21 U/L (8-55); AST (SGOT) 17 U/L (5-34); Albumin 3.9 g/dL (3.4-4.8); Alkaline Phosphatase 59 U/L (40-150); Anion Gap 16 mmol/L (10-20); BUN (Urea Nitrogen) 14 mg/dL (8.4-25.7); Bilirubin, Total 0.4 mg/dL (0.2-1.2); Calc. Creatinine Clearance 0 mL/min (70-130); Calcium 9.2 mg/dL (7.8-10.44); Carbon Dioxide 24 mmol/L (23-31); Chloride 104 mmol/L (98-107); Estimated GFR-MDRD Greater than 90; Globulin 2.8 g/dL (2.4-3.5); Glucose 232 mg/dL (80-115); Potassium 3.9 mmol/L (3.5-5.1); Protein, Total 6.7 g/dL (5.8-8.1); Sodium 140 mmol/L (136-145)
[2018-01-17 01:30] LABS: CKMB 1.6 ng/mL (0-6.6); Troponin I Less than 0.010 ng/mL (< 0.028)
[2018-01-17] MEDS ORDERED: Fentanyl 100 MCG/2 ML VIAL ONE (02:55)
[2018-01-17 05:54] LABS: Troponin I Less than 0.010 ng/mL (< 0.028)
--- NOTE | 2018-01-17 07:57 | RAD ---
CHEST 1 VIEW: HISTORY: Chest pain. COMPARISON: 12/29/17. FINDINGS: Lungs are hypoinflated with vascular crowding. No pneumothorax or effusion. IMPRESSION: No acute intrathoracic abnormality. POS: [facility]
[2018-01-17 08:34] LABS: Troponin I Less than 0.010 ng/mL (< 0.028)
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
[2018-01-17] MEDS ORDERED: Fentanyl 100 MCG/2 ML VIAL SLOW IVP PRN (09:44)
[2018-01-17] MEDS ORDERED: ISOVUE-370 76%-LOCM 1 ML ONE (09:58)
[2018-01-17] MEDS ORDERED: Dextrose 50% Abboject 50 ML SYRINGE SLOW IVP PRN (10:13)
[2018-01-17] MEDS ORDERED: Dextrose 5% in Water 1,000 ML IV PRN (10:13)
[2018-01-17] MEDS ORDERED: Insulin Regular 300 UNITS/3 ML VIAL SC PRN ×2 (10:13)
[2018-01-17] MEDS ORDERED: Acetaminophen 325 MG TAB PO PRN (10:15)
[2018-01-17] MEDS ORDERED: Ondansetron HCl/PF 4 MG/2 ML Vial IVP PRN (10:15)
[2018-01-17] MEDS ORDERED: Calcium Carbonate 500 MG ChewTAB PO PRN (10:15)
[2018-01-17] MEDS ORDERED: Senokot 8.6 MG TAB PO PRN (10:15)
[2018-01-17] MEDS ORDERED: Insulin Glargine 50 UNITS in Pre-Filled Syringe 1 EACH SC SCH (10:15)
[2018-01-17] MEDS ORDERED: Mag-Al 1200 mg/1200 mg/30 ML UDCUP PO PRN (10:15)
[2018-01-17] MEDS ORDERED: Ondansetron ODT 4 MG TAB PO PRN (10:15)
[2018-01-17] MEDS ORDERED: hydrALAZINE 20 MG/ML VIAL SLOW IVP PRN (10:26)
[2018-01-17] MEDS ORDERED: Labetalol HCl 100 MG/20 ML VIAL SLOW IVP PRN (10:26)
[2018-01-17] MEDS ORDERED: cloNIDine 0.1 MG TAB PO PRN (10:27)
[2018-01-17 11:24] VITALS: BMI 31.7
[2018-01-17] MEDS: Sodium Chloride 0.9% 1,000 ML IV SCH (11:47)
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
[2018-01-17] MEDS: Propranolol HCl 20 MG TAB PO SCH ×2 (15:50→20:42)
[2018-01-17] MEDS ORDERED: Rivaroxaban 10 MG TAB PO SCH (17:00)
[2018-01-17] MEDS: Senokot S 8.6-50 MG TAB PO SCH (20:42)
[2018-01-17] MEDS: Famotidine 20 MG TAB PO SCH (20:42)
[2018-01-17] MEDS: Insulin Glargine 50 UNITS in Pre-Filled Syringe 1 EACH SC SCH (20:43)
[2018-01-17] MEDS: Docusate 100 MG CAP PO SCH (20:43)
[2018-01-17] MEDS ORDERED: OLANZapine 2.5 MG TAB PO SCH (21:00)
[2018-01-17] MEDS ORDERED: Amitriptyline HCl 25 MG TAB PO SCH (21:00)
[2018-01-17] MEDS ORDERED: Atorvastatin Calcium 10 MG TAB PO SCH (21:00)
[2018-01-18] MEDS: Sodium Chloride 0.9% 1,000 ML IV SCH (03:01)
[2018-01-18] MEDS: Insulin Glargine 50 UNITS in Pre-Filled Syringe 1 EACH SC SCH (08:34)
[2018-01-18] MEDS: Docusate 100 MG CAP PO SCH (08:34)
[2018-01-18] MEDS: Propranolol HCl 20 MG TAB PO SCH (08:34)
[2018-01-18] MEDS: Senokot S 8.6-50 MG TAB PO SCH (08:34)
[2018-01-18] MEDS: Famotidine 20 MG TAB PO SCH (08:34)
[2018-01-18 11:14] VITALS: BP 189/92; TEMP 97.6
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
--- NOTE | 2018-01-20 13:40 | EKG ---
Test Reason : Blood Pressure : / mmHG Vent. Rate : 066 BPM Atrial Rate : 066 BPM P-R Int : 162 ms QRS Dur : 130 ms QT Int : 438 ms P-R-T Axes : 036 -20 028 degrees QTc Int : 459 ms Normal sinus rhythm Right bundle branch block No STEMI Abnormal ECG Confirmed by LAURA Honeycutt, KEYLA ([id number]), magazine editor ARMANDO ALATORRE ([id number]) on 01/20/2018 1:39:46 PM Referred By: Confirmed By:KEYLA SANCHEZ M.D.
== END 2018-01-18 12:47 | disposition home or self-care (01) ==
LOC: ERS 23:18 → 2SE 01-17 04:26
PROVIDERS: ADMIT Internal Medicine Infectious Disease; ATTEND Internal Medicine Infectious Disease
DX: F07.81 Postconcussional syndrome (principal); R07.89 Other chest pain; J32.0 Chronic maxillary sinusitis; K21.9 Gastro-esophageal reflux disease without esophagitis; N40.0 Benign prostatic hyperplasia without lower urinary tract symptoms; E66.9 Obesity, unspecified; I10 Essential (primary) hypertension; E78.5 Hyperlipidemia, unspecified; E11.9 Type 2 diabetes mellitus without complications; Z86.718 Personal history of other venous thrombosis and embolism; Z86.711 Personal history of pulmonary embolism; Z68.31 Body mass index [BMI] 31.0-31.9, adult; Z88.2 Allergy status to sulfonamides; Z88.0 Allergy status to penicillin; Z88.5 Allergy status to narcotic agent; Z79.84 Long term (current) use of oral hypoglycemic drugs; Z79.899 Other long term (current) drug therapy
CPT/HCPCS: 36415; 36416; 70450; 70496; 70498; 71045; 80053; 82553; 84484; 85025; 85610; 93005; 96361; 96365; 96375; 96376; G0378; G8978-GP-CJ; G8979-GP-CJ; G8980-GP-CJ; J1200; J2270; J2765; J3010

== ENCOUNTER 2018-01-24 19:27 | Emergency (ER) | payer BC ==
--- NOTE | 2018-01-24 20:17 | RAD ---
RADIOGRAPH CHEST 1 VIEW: HISTORY: A 62-year-old male with chest pain. FINDINGS: There is no air space density, pulmonary edema, or pneumothorax. The lateral costophrenic angles are sharp. IMPRESSION: No acute pulmonary findings. jo [] POS: [facility]
[2018-01-24 20:31] LABS: #Basophils 0.1 thou/uL (0.0-0.2); #Lymphocytes 2.2 thou/uL (1.20-3.40); #Monocytes 0.6 thou/uL (0.11-0.59); #Neutrophils 2.2 thou/uL (1.40-6.50); %Basophils 1.3 % (0.0-1.0); %Lymphocytes 43.9 % (21.0-51.0); %Monocytes 11.4 % (0.0-10.0); %Neutrophils 42.4 % (42.0-75.0); Hemoglobin 12.1 g/dL (14.0-18.0); Mean Corpuscular HGB CONC 33.6 g/dL (32.0-36.0); Mean Corpuscular Hemoglobin 27.7 pg (27.0-31.0); Mean Corpuscular Volume 82.4 fL (78.0-98.0); Mean Platelet Volume 7.3 fL (7.4-10.4); Platelet Count 188 thou/uL (130-400); RBC Distribution Width 14.9 % (11.5-14.5); Red Blood Cell (RBC) Count 4.38 mill/uL (4.70-6.10); White Blood Cell (WBC) Count 5.1 thou/uL (4.8-10.8)
[2018-01-24 20:52] LABS: ALT (SGPT) 20 U/L (8-55); AST (SGOT) 15 U/L (5-34); Albumin 3.7 g/dL (3.4-4.8); Alkaline Phosphatase 45 U/L (40-150); Anion Gap 11 mmol/L (10-20); BUN (Urea Nitrogen) 16 mg/dL (8.4-25.7); Bilirubin, Total 0.5 mg/dL (0.2-1.2); Calc. Creatinine Clearance 0 mL/min (70-130); Carbon Dioxide 25 mmol/L (23-31); Chloride 106 mmol/L (98-107); Estimated GFR-MDRD Greater than 90; Globulin 2.6 g/dL (2.4-3.5); Glucose 116 mg/dL (80-115); Potassium 3.9 mmol/L (3.5-5.1); Protein, Total 6.3 g/dL (5.8-8.1); Sodium 138 mmol/L (136-145)
[2018-01-24 20:55] LABS: CKMB 1.8 ng/mL (0-6.6); Troponin I Less than 0.010 ng/mL (< 0.028)
[2018-01-24] MEDS ORDERED: diphenhydrAMINE 50 MG/ML VIAL ONE (21:12)
[2018-01-24] MEDS ORDERED: Metoclopramide HCl 10 MG/2 ML VIAL ONE (21:12)
--- NOTE | 2018-01-24 21:32 | CT ---
CT BRAIN NONCONTRAST: 01/24/2018 9:07 p.m. HISTORY: Persistent post traumatic headache. FINDINGS: There is no midline shift or any other mass effect. There is no evidence of acute intracranial hemor rhage, large cortical infarct, obstructive hydrocephalus, or extraaxial fluid collection. The calvar ium is intact. There is a small, approximately 1 cm, faint, patchy intraaxial hyperdensity in the le ft paramedian frontal lobe, unchanged compared to an 01/17/2018 CT and a 12/11/2014 CT. In the contr alateral right frontal deep white matter, there is a punctate intraaxial calcification. There is sev ere, near total opacification of the bilateral maxillary sinuses, similar to 01/17/2018 and 5. Patchy focal hyperdensities within the opacified maxillary sinuses, are consistent with chronic f ungal colonization. IMPRESSION: 1. No acute intracranial findings. 2. Incidental finding of small cavernous malformation in the left frontal lobe. 3. Chronic bilateral maxillary sinusitis, with fungal colonization. jo [] POS: [facility]
[2018-01-24] MEDS ORDERED: Acetaminophen 500 MG TAB ONE (22:15)
[2018-01-24] MEDS ORDERED: Magnesium Sulfate 2 GM/100 ML BAG ONE (22:17)
== END 2018-01-24 23:38 | disposition home or self-care (01) ==
LOC: ERS 19:27
DX: J32.9 Chronic sinusitis, unspecified (principal); E11.9 Type 2 diabetes mellitus without complications; E78.5 Hyperlipidemia, unspecified; I10 Essential (primary) hypertension; F31.9 Bipolar disorder, unspecified; Z79.899 Other long term (current) drug therapy
CPT/HCPCS: 36415; 70450; 71045; 80053; 82553; 84484; 85025; 93005; 94760; 96365; 96367; 96375; J1200; J2765; J3475

== ENCOUNTER 2018-02-07 09:37 | Emergency (ER) | payer BC ==
[2018-02-07] MEDS ORDERED: traMADol HCl 50 MG TAB ONE (11:21)
[2018-02-07] MEDS ORDERED: Meclizine HCl 25 MG TAB ONE (11:21)
== END 2018-02-07 13:06 | disposition home or self-care (01) ==
LOC: ERS 09:37
DX: F07.81 Postconcussional syndrome (principal); E11.9 Type 2 diabetes mellitus without complications; E78.5 Hyperlipidemia, unspecified; I10 Essential (primary) hypertension; F31.9 Bipolar disorder, unspecified; Z79.4 Long term (current) use of insulin; Z79.899 Other long term (current) drug therapy
CPT/HCPCS: 99283

== ENCOUNTER 2018-04-21 05:42 | Emergency (ER) | payer BC ==
[2018-04-21] MEDS ORDERED: Diazepam 5 MG TAB ONE (06:36)
[2018-04-21 06:46] LABS: #Lymphocytes 1.4 thou/uL (1.20-3.40); #Monocytes 0.4 thou/uL (0.11-0.59); #Neutrophils 2.3 thou/uL (1.40-6.50); %Basophils 0.4 % (0.0-1.0); %Eosinophils 0.5 % (0.0-10.0); %Lymphocytes 33.5 % (21.0-51.0); %Monocytes 9.2 % (0.0-10.0); %Neutrophils 56.4 % (42.0-75.0); Hemoglobin 12.8 g/dL (14.0-18.0); Mean Corpuscular HGB CONC 32.3 g/dL (32.0-36.0); Mean Corpuscular Hemoglobin 26.6 pg (27.0-31.0); Mean Corpuscular Volume 82.4 fL (78.0-98.0); Platelet Count 203 thou/uL (130-400); RBC Distribution Width 14.9 % (11.5-14.5); Red Blood Cell (RBC) Count 4.82 mill/uL (4.70-6.10)
[2018-04-21] MEDS ORDERED: Labetalol HCl 100 MG/20 ML VIAL ONE (06:52)
[2018-04-21 07:03] LABS: ALT (SGPT) 26 U/L (8-55); AST (SGOT) 21 U/L (5-34); Alkaline Phosphatase 64 U/L (40-150); Anion Gap 14 mmol/L (10-20); BUN (Urea Nitrogen) 16 mg/dL (8.4-25.7); Bilirubin, Total 0.6 mg/dL (0.2-1.2); Calc. Creatinine Clearance 0 mL/min (70-130); Calcium 9.6 mg/dL (7.8-10.44); Carbon Dioxide 23 mmol/L (23-31); Chloride 103 mmol/L (98-107); Estimated GFR-MDRD Greater than 90; Glucose 161 mg/dL (80-115); Lipase 33 U/L (8-78); Potassium 4.2 mmol/L (3.5-5.1); Sodium 136 mmol/L (136-145)
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
[2018-04-21] MEDS ORDERED: Meclizine HCl 25 MG TAB ONE (08:45)
== END 2018-04-21 09:20 | disposition home or self-care (01) ==
LOC: ERS 05:42
DX: R42 Dizziness and giddiness (principal); E11.9 Type 2 diabetes mellitus without complications; E78.5 Hyperlipidemia, unspecified; I10 Essential (primary) hypertension; F31.9 Bipolar disorder, unspecified; Z79.4 Long term (current) use of insulin; Z79.899 Other long term (current) drug therapy
CPT/HCPCS: 36415; 70450; 80053; 83690; 85025; 93005; 96360

== ENCOUNTER 2018-05-09 12:31 | Emergency (ER) | payer BC ==
--- NOTE | 2018-05-09 15:29 | RAD ---
PORTABLE CHEST: Date: 05-09-18 Time: 3:20 p.m. History: Cough, congestion. FINDINGS: Comparison is made with 01-24-18. The heart size is normal. No focal areas of consolidation, pneumothorax, or pleural effusions are see n. IMPRESSION: No acute process. POS: [facility]
== END 2018-05-09 15:46 | disposition home or self-care (01) ==
LOC: ERS 12:31
DX: J40 Bronchitis, not specified as acute or chronic (principal); E11.9 Type 2 diabetes mellitus without complications; Z86.73 Personal history of transient ischemic attack (TIA), and cerebral infarction without residual deficits; Z86.711 Personal history of pulmonary embolism; E78.2 Mixed hyperlipidemia; I10 Essential (primary) hypertension; F31.9 Bipolar disorder, unspecified; Z79.899 Other long term (current) drug therapy; Z79.01 Long term (current) use of anticoagulants; Z79.84 Long term (current) use of oral hypoglycemic drugs
CPT/HCPCS: 71045

== ENCOUNTER 2018-05-25 10:18 | Emergency (ER) | payer BC ==
--- NOTE | 2018-05-25 10:55 | RAD ---
2 VIEWS CHEST: Date: 05/25/18 HISTORY: Cough. Congestion. Symptoms for several days. COMPARISON: 05/09/18. FINDINGS: Normal cardiac silhouette. Pulmonary vessels and hilum are normal. Persistent blunting of left hemidi aphragm. Costophrenic angles are clear. Chronic changes without consolidation or mass. No pneumothora x or osseous abnormalities. IMPRESSION: No acute cardiopulmonary process. POS: [facility]
== END 2018-05-25 12:24 | disposition home or self-care (01) ==
LOC: ERS 10:18
DX: J06.9 Acute upper respiratory infection, unspecified (principal); Z86.718 Personal history of other venous thrombosis and embolism; Z86.711 Personal history of pulmonary embolism; E11.9 Type 2 diabetes mellitus without complications; E78.2 Mixed hyperlipidemia; I10 Essential (primary) hypertension; Z79.4 Long term (current) use of insulin; F31.9 Bipolar disorder, unspecified
CPT/HCPCS: 71046

== ENCOUNTER 2018-08-08 12:25 | Inpatient (IN) | payer BC ==
[~2018-08-08 12:25] MED LIST changes: +ISOVUE-370 76%-LOCM 1 ML ONE; -Iopamidol 370 76% 100 ML VIAL ONE
[2018-08-08 13:40] LABS: #Lymphocytes 0.8 thou/uL (1.20-3.40); #Monocytes 0.3 thou/uL (0.11-0.59); #Neutrophils 5.2 thou/uL (1.40-6.50); %Basophils 0.2 % (0.0-1.0); %Eosinophils 0.4 % (0.0-10.0); %Lymphocytes 12.6 % (21.0-51.0); %Monocytes 4.7 % (0.0-10.0); %Neutrophils 82.1 % (42.0-75.0); Hemoglobin 14.5 g/dL (14.0-18.0); Mean Corpuscular HGB CONC 31.4 g/dL (32.0-36.0); Mean Corpuscular Hemoglobin 26.3 pg (27.0-31.0); Mean Corpuscular Volume 83.8 fL (78.0-98.0); Platelet Count 271 thou/uL (130-400); RBC Distribution Width 15.7 % (11.5-14.5); Red Blood Cell (RBC) Count 5.49 mill/uL (4.70-6.10); White Blood Cell (WBC) Count 6.3 thou/uL (4.8-10.8)
[2018-08-08 13:54] LABS: ALT (SGPT) 36 U/L (8-55); AST (SGOT) 25 U/L (5-34); Albumin 4.3 g/dL (3.4-4.8); Alkaline Phosphatase 65 U/L (40-150); Anion Gap 15 mmol/L (10-20); BUN (Urea Nitrogen) 16 mg/dL (8.4-25.7); Bilirubin, Total 0.9 mg/dL (0.2-1.2); Calc. Creatinine Clearance 0 mL/min (70-130); Carbon Dioxide 29 mmol/L (23-31); Chloride 101 mmol/L (98-107); Estimated GFR-MDRD Greater than 90; Globulin 2.6 g/dL (2.4-3.5); Glucose 144 mg/dL (80-115); Lipase 74 U/L (8-78); Potassium 4.6 mmol/L (3.5-5.1); Protein, Total 6.9 g/dL (5.8-8.1); Sodium 140 mmol/L (136-145)
[2018-08-08 14:17] LABS: INR-International Normal Ratio 1.2; PTT 21.5 SEC (22.9-36.1); Prothrombin Time 15.2 SEC (12.0-14.7)
[2018-08-08] MEDS ORDERED: Ondansetron PF 4 MG/2 ML Vial ONE (14:37)
[2018-08-08] MEDS ORDERED: Morphine 2 MG/ML SYRINGE ONE (14:37)
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
[2018-08-08] MEDS ORDERED: Senokot S 8.6-50 MG TAB PO PRN (17:36)
[2018-08-08] MEDS ORDERED: Acetaminophen 650 MG Suppository PR PRN (17:36)
[2018-08-08] MEDS ORDERED: Guaifenesin DM 100-10/5 ML UDCUP PO PRN (17:36)
[2018-08-08] MEDS ORDERED: Ondansetron ODT 4 MG TAB PO PRN (17:36)
[2018-08-08] MEDS ORDERED: Ondansetron PF 4 MG/2 ML Vial IVP PRN (17:36)
[2018-08-08] MEDS ORDERED: Acetaminophen 325 MG TAB PO PRN (17:36)
[2018-08-08] MEDS ORDERED: Labetalol HCl 100 MG/20 ML VIAL SLOW IVP PRN (17:41)
[2018-08-08 17:43] LABS: Lactic Acid 2.9 mmol/L (0.5-2.2)
[2018-08-08] MEDS ORDERED: Dicyclomine 20 MG TAB ONE (17:46)
[2018-08-08] MEDS ORDERED: Metoclopramide HCl 10 MG/2 ML VIAL ONE (17:46)
[2018-08-08] MEDS ORDERED: metroNIDAZOLE 500 MG/100 ML BAG ONE (17:46)
[2018-08-08] MEDS ORDERED: Morphine 4 MG/ML VIAL ONE (17:49)
[2018-08-08] MEDS ORDERED: Sodium Chloride 0.9% (PF) 10 ML VIAL FS PRN (18:07)
[2018-08-08] MEDS ORDERED: Dextrose 50% Abboject 50 ML SYRINGE SLOW IVP PRN (18:09)
[2018-08-08] MEDS ORDERED: Dextrose 5% in Water 1,000 ML IV PRN (18:09)
[2018-08-08] MEDS ORDERED: HumaLOG 300 UNITS/3 ML VIAL SC PRN ×2 (18:09)
[2018-08-08] MEDS ORDERED: Acetaminophen 325 MG TAB ONE (18:33)
[2018-08-08] MEDS: Insulin Glargine 60 UNITS in Pre-Filled Syringe 1 EACH SC SCH (21:00)
[2018-08-08] MEDS ORDERED: Famotidine/PF 20 mg/2ml Vial SLOW IVP SCH (21:00)
[2018-08-08 22:11] LABS: Bilirubin Negative (Negative); Blood, Urine Negative (Negative); Clarity CLEAR (Clear); Glucose, Urine (Dipstick) >=1000 mg/dL (Negative); Leukocyte Negative (Negative); Nitrite Negative (Negative); Protein, Urine (Dipstick) Negative (Neg-Trace); Urobilinogen 0.2 mg/dL (0.2-1.0)
[2018-08-08 22:15] LABS: Specific Gravity, Urine 1.053 (1.002-1.036)
--- NOTE | 2018-08-09 00:07 | HP ---
PRIMARY CARE PHYSICIAN: Jazmin Tamayo MD CHIEF COMPLAINT: Abdominal pain. HISTORY OF PRESENT ILLNESS: This is a 63-year-old white male with a known history of diabetes mellitus type 2 insulin dependent, hypertension, and previous DVT and PE on chronic Xarelto therapy. He had a cramp in his calf that caused him to fall out of bed about 4 days prior to admission. He hit his belly on the side of the bed and started hurting some then. The pain persisted and then got severely worse yesterday associated with nausea. No vomiting. He did have 5 to 6 liquidy brown stools yesterday as well, though these did not improve the pain. He had no fever or chills. The patient came into the emergency room today due to severe pain. He had some mild tachycardia and was noted to have diffuse abdominal pain worse in the left lower quadrant with a light brown stool in the rectal vault. No blood. Had a CT scan done showing small bowel thickening in the left lower quadrant. Fatty liver. Minimal ascites and some mild prostatic enlargement. The patient was given a small dose of morphine 2 mg, which helped the pain temporarily but is back to severe now. His labs showed a normal white blood cell count, normal lipase but he did have an elevated lactic acid of 3.0. Repeat is still pending right now. PAST MEDICAL HISTORY: 1. Diabetes mellitus type 2, insulin dependent. 2. Hypertension. 3. Hyperlipidemia. 4. Previous DVT and pulmonary embolism on chronic Xarelto. 5. Amyloid angiopathy of the brain. 6. 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 7. Gastroesophageal reflux disease. 8. Benign prostatic hyperplasia. 9. Obesity. 10. Mild tardive dyskinesia from psych meds. PAST PSYCHIATRIC HISTORY: Bipolar disorder. PAST SURGICAL HISTORY: 1. Appendectomy. 2. 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 3. Septoplasty. 4. Cholecystectomy. 5. Sinus surgery. SOCIAL HISTORY: The patient lives with his , Vane Greco. No tobacco, alcohol, or illicit drug use. The patient works at [employer]. FAMILY HISTORY: Dad of lung cancer, though a previous H and P had mentioned that it was actually bone cancer. Mother had bipolar disorder, of unknown causes in her 50s. ALLERGIES: 1. CODEINE. 2. PENICILLIN. 3. SULFA ANTIBIOTICS. CURRENT MEDICATIONS: 1. Levemir 130 units twice a day. 2. Simvastatin 20 mg at night. 3. Olanzapine 2.5 mg daily. 4. Xarelto 20 mg daily. 5. Invokana 300 mg daily. 6. Metformin 1000 mg twice a day. 7. Propranolol 80 mg daily. 8. Zyprexa 1 tablet daily. 9. Valium 5 mg twice a day. 10. Meclizine 50 mg as needed for dizziness. 11. Prilosec 20 mg daily. 12. Vascepa 2 mg twice a day. REVIEW OF SYSTEMS: CONSTITUTIONAL: No fevers. No chills. EYES: No double vision or blurred vision. ENT: No congestion, drainage or sore throat. CARDIOVASCULAR: No chest pain. No palpitations or racing heart. PULMONARY: No coughing or wheezing. He has had a little bit of shortness of breath due to pain when he breathes in deep in his abdomen. GASTROINTESTINAL: See HPI. GENITOURINARY: No dysuria or hematuria. MUSCULOSKELETAL: No muscle aches or joint pains. He did have the calf cramping a few days ago, but that is resolved. SKIN: No rashes or other lesions noted. NEUROLOGIC: No numbness, tingling, or focal weakness. PHYSICAL EXAMINATION: VITAL SIGNS: Blood pressure 135/93, pulse 100, respirations 20, temperature 98.7, and O2 saturation 98% on room air. Pain 10/10. Currently, he looks very uncomfortable. GENERAL: This is a well-developed obese white male, in moderate distress from pain. HEENT: Pupils equal, round, and reactive to light. Oropharynx, clear without lesions, erythema, or exudate. He does have involuntary small movements of his lips. NECK: Supple. No lymphadenopathy. No thyroid nodules or enlargement. No JVD. HEART: Regular rate and rhythm. No murmurs, rubs, or gallops. LUNGS: Clear to auscultation bilaterally. No wheezes, crackles, or rhonchi. ABDOMEN: Mildly distended, obese. He has moderate guarding diffusely and significant rebound tenderness diffusely. No specific areas of worsened tenderness to palpation. He does have present but mildly hypoactive bowel sounds. No specific masses palpable. He has a couple of small healing very mild bruises from his insulin injections, but no visible sorenson of trauma to the abdomen. EXTREMITIES: No clubbing, cyanosis, or edema. SKIN: No rashes or other lesions noted. NEUROLOGIC: He has intact strength and sensation in all extremities. He has tardive dyskinesia changes to movement of his mouth and tongue, but no facial droop. PSYCHIATRIC: Alert and oriented x3. Normal mood and affect. LABORATORY DATA: CBC grossly normal. Coagulation profile with PT of 15.2, INR of 1.2. Complete metabolic panel is normal except for glucose of 144. His lactic acid was elevated at 3.0. Repeat is still pending. Troponin was negative. CT of the abdomen and pelvis as per HPI. ASSESSMENT: 1. Acute abdominal pain. This was post traumatic. However, the patient is having some diarrhea as well. It could be infectious, especially with the changes on the CT scan, however, concerned also for ischemic bowel disease or even some sort of traumatic injury. No evidence for intraabdominal bleed at this time. I am concerned with the elevation of the lactic acid and with the severity of the exam. I did consult Dr. Lovelace to get surgical advice on this case. For now, we will continue the antibiotics started in the emergency room and give IV fluids and keep the patient n.p.o. 2. Elevated lactic acid with an elevated heart rate as well. Concern for sepsis syndrome. We will recheck lactic acid and make sure it has come down with IV fluids. 3. Diabetes mellitus type 2, insulin dependent. We will resume the patient's insulin but at a lower dose due to his n.p.o. status at this time and will give him fingerstick blood sugars q.a.c. and at bedtime with aggressive insulin sliding scale. 4. Hypertension. We will give patient p.r.n. IV medications while he is n.p.o. 5. Previous deep venous thrombosis and pulmonary embolism on anticoagulation for the last 2 years. We will hold his Xarelto for now in case he does need surgery. We will resume it once Surgery is to evaluate the patient and determine a plan. 6. Gastroesophageal reflux disease. We will continue patient's omeprazole, but will give it IV for now. 7. Code status. I did discuss this with the patient. He is a full code. Should he be incapacitated, his would be his medical decision maker, her name is Vane Greco. Job ID: [id number]
[2018-08-09 00:55] VITALS: BMI 30.8
[2018-08-09] MEDS: metroNIDAZOLE 500 MG in Premix Bag 1 BAG IVPB SCH ×3 (01:11→18:07)
[2018-08-09] MEDS: Sodium Chloride 0.9% 1,000 ML IV SCH ×2 (01:11→09:19)
[2018-08-09] MEDS: Morphine 4 MG/ML VIAL SLOW IVP PRN ×4 (01:12→21:02)
--- NOTE | 2018-08-09 03:34 | CON ---
DATE OF CONSULTATION: REASON FOR CONSULT: Abdominal pain. HISTORY OF PRESENT ILLNESS: Mr. Greco is a 63-year-old man who reports falling onto a [place] chest striking his mid abdomen on Wednesday. He states that ever since then he has had abdominal pain, which has slowly been getting worse. He states that he had several episodes of diarrhea and chills on Wednesday and a low-grade fever today. He has had some nausea, but no vomiting. He has not noticed any blood or melena in his stool. He is chronically on Xarelto for DVTs. He denies any other injury during his fall. He states that he had been having leg cramps and that is why he fell forward. He denies any head injury or loss of consciousness. He states that today the pain got much worse, so he went to his primary care doctor's office and they sent him to the ER because he was pale and looks very unwell. PAST MEDICAL HISTORY: Hypertension, DVTs, pancreatic mass, hyperlipidemia, type 2 diabetes, and morbid obesity. PAST SURGICAL HISTORY: Appendectomy, distal pancreatic resection, cholecystectomy, septoplasty, and sinus surgery. SOCIAL HISTORY: The patient does not smoke, drink, or use illicit drugs. REVIEW OF SYSTEMS: Ten system review of systems is negative except per HPI and leg cramps. The patient also states that the back of his right leg has been hurting quite a bit since his fall. OUTPATIENT MEDICATIONS: Include; 1. Xarelto. 2. Levemir FlexPen. 3. Simvastatin. 4. Olanzapine. 5. Invokana. 6. Metformin. 7. Propranolol. 8. Zyprexa. 9. Valium. 10. Meclizine. 11. Prilosec. 12. Vascepa. ALLERGIES: HE HAS ADVERSE DRUG REACTIONS TO CODEINE, PENICILLIN, AND SULFA, ALL OF WHICH CAUSE NAUSEA. FAMILY HISTORY: Noncontributory. PHYSICAL EXAMINATION: VITAL SIGNS: The patient was afebrile in the emergency room. Heart rate ranged from 79 to 109, blood pressure 128/75, respirations 20, 97% saturated on room air, at some point, this dropped into the 80s and he was placed on nasal cannula O2. GENERAL: Reveals an obese elderly gentleman, who is eating meatloaf when I came to examine him. He was in no acute distress. He was not diaphoretic. He did not appear pale or flushed. No jaundice or icterus. HEENT: Unremarkable. NECK: Supple without lymphadenopathy, bruits, or thyroid nodules. HEART: Regular rate and rhythm. I did not appreciate any murmurs, rubs, or gallops. LUNGS: Clear to auscultation bilaterally. ABDOMEN: Soft and protuberant. Bowel sounds were hyperactive. He was diffusely tender to palpation without rigidity or guarding. He denied rebound tenderness, saying it stated better when I released pressure on his abdomen. He did not have any palpable masses or hernias. He has a healed chevron incision and a right paramedian incision. EXTREMITIES: Warm and well perfused with normal dorsalis pedis pulses bilaterally. NEURO: No focal deficits. PSYCHIATRIC: Alert, oriented, and appropriate. IMAGING STUDIES: CT images are reviewed and I agree with the written report. Postoperative changes are noted. He does have one loop of small intestine in the left abdomen, which appears thickened; however, there is no evidence of obstruction and the vessels leading to this loop appear normal. Labs are fairly unremarkable. Lactate was mildly elevated at 3. White count was normal at 6.3, although he did have a mild left shift of 82% neutrophils. ASSESSMENT: Likely enteritis, which may be exacerbated somewhat by blunt abdominal wall trauma, although there is no external evidence of trauma. This is most likely to be inflammatory or infectious in nature, less likely to be ischemic or traumatic. Currently, he does not have a surgical abdomen, but I will continue to follow and if his condition deteriorates, then expiration can be considered, but at this point, I believe it to be low yield. Job ID: [id number]
[2018-08-09 04:44] LABS: Anion Gap 15 mmol/L (10-20); BUN (Urea Nitrogen) 20 mg/dL (8.4-25.7); Calc. Creatinine Clearance 147 mL/min (70-130); Calcium 8.6 mg/dL (7.8-10.44); Carbon Dioxide 24 mmol/L (23-31); Chloride 107 mmol/L (98-107); Estimated GFR-MDRD Greater than 90; Glucose 72 mg/dL (80-115); Potassium 4.1 mmol/L (3.5-5.1); Sodium 142 mmol/L (136-145)
[2018-08-09 04:57] LABS: Band 29 % (5-11); Hemoglobin 11.8 g/dL (14.0-18.0); Lymphocytes 12 % (21-51); MDiff Complete? YES; Mean Corpuscular HGB CONC 31.4 g/dL (32.0-36.0); Mean Corpuscular Hemoglobin 27.1 pg (27.0-31.0); Mean Corpuscular Volume 86.2 fL (78.0-98.0); Mean Platelet Volume 8.3 fL (7.4-10.4); Monocytes 11 % (0-10); Neutrophil 48 % (42-75); Platelet Count 182 thou/uL (130-400); RBC Distribution Width 15.7 % (11.5-14.5); Red Blood Cell (RBC) Count 4.34 mill/uL (4.70-6.10); White Blood Cell (WBC) Count 7.7 thou/uL (4.8-10.8)
[2018-08-09] MEDS ORDERED: Insulin Glargine 60 UNITS in Pre-Filled Syringe 1 EACH SC SCH (09:00)
[2018-08-09] MEDS: Pantoprazole 40 MG VIAL IVP SCH (09:03)
[2018-08-09] MEDS: Insulin Glargine 60 UNITS in Pre-Filled Syringe 1 EACH SC SCH ×2 (09:17→20:55)
--- NOTE | 2018-08-09 14:26 | PDOC.PN ---
- Subjective Encounter Start Date: 08/09/18 Encounter Start Time: 14:23 Mr. Greco was seen today in follow-up of abdominal pain. He say he continues to have 10/10 pain in the lower abdomen. It is in a band life- distribution. He says it is constant, he has not eaten, so he is not sure if there is any relationship to food. He also notes some pain and numbness in his right leg, and had severe cramping in this leg prior to falling out of bed. He says the pain did not start until after he fell. - Objective Resuscitation Status - Order Detail: 08/08/18 17:36 Resuscitation Status Routine Resuscitation Status: FULL: Full Resuscitation Discussed with: Patient MAR Reviewed: Yes Vital Signs & Weight: Vital Signs (12 hours) Temp Pulse Resp BP BP Pulse Ox 08/09/18 12:00 98.7 F 76 16 104/52 L 92 L 08/09/18 11:12 117/56 L 08/09/18 08:00 98.0 F 80 18 117/61 95 08/09/18 03:53 98.0 F 80 16 105/53 L 94 L Weight Weight 215 lb I&O: 08/08/18 08/09/18 08/10/18 06:59 06:59 06:59 Intake Total 1280 Balance 1280 Result Diagrams: 08/09/18 04:06 08/09/18 04:06 Additional Labs: Accuchecks 08/09/18 08/09/18 08/08/18 11:32 06:25 20:53 POC Glucose 77 77 122 H Phys Exam - Physical Examination HEENT: PERRLA Respiratory: no wheezing, no rales, no rhonchi, clear to auscultation bilateral Cardiovascular: RRR, no significant murmur, no rub Gastrointestinal: soft, no distention, positive bowel sounds + lower abdomeinal tenderness, no rebound or guarding Musculoskeletal: no edema, pulses present, edema present Neurological: non-focal muscle strength is intact in both lower extremities,able to doriflex and plantart flex bilaterally- equivocal straight leg raise on the right Dx/Plan - Plan * Abdominal pain- ? etiology- may be simply an infectious colitis- will continue treatment with Cipro and Flagyl * Some of his symptoms are concerning for possibly thoracic or lumbar radiculaopthy- will check an MRI of the T-spine and L-spine * Abdominal X-ray was done earlier- and await frther recommendations from Surgery * If the above evaluation is non-revealing and he continues to have abdominal pain despite antibiotic treatment, then will consider GI evaluation * DM- blood glucose is stable- continue SSI.
--- NOTE | 2018-08-09 14:52 | RAD ---
SUPINE ABDOMEN: History: Abdominal pain. Date: 08-09-18 Comparison: 03-20-10 FINDINGS/IMPRESSION: Supine view of the abdomen demonstrates surgical clips seen in the gallbladder fossa and left upper q uadrant of the abdomen. The urinary bladder is distended. No evidence of bowel obstruction or ileus s een. The urinary bladder is distended. There does appear to be some areas of patchy density in the lung bases compatible with areas of atele ctasis. POS: [facility]
--- NOTE | 2018-08-09 15:06 | PDOC.GSPN ---
Surgery Progress Note: Subj - Subjective Narrative: Patient states he is still having severe pain although he does not appear to be uncomfortable. He hasn't eaten since last night but he is hungry. He denies any nausea. He is passing flatus although he hasn't had a bowel movement today. His abdomen is soft and protuberant. He does not exhibit any rigidity or guarding. He is diffusely tender. Abdominal series is unremarkable. White count is normal although he does have a bandemia. Electrolytes are also normal and vitals are normal. Assessment/plan: Abdominal pain and tenderness of unclear etiology. He does not appear to have a surgical abdomen, but states that his pain is no better than when he was admitted. If he is not improved by tomorrow I would recommend considering repeating CT of the abdomen and pelvis. If MRI of the spine is done , it might be more expedient to simply add MRI of the abdomen and pelvis to the study. Surgery Progress Note: Obj - Vital signs Vital signs: Vital Signs - Most Recent Temp Pulse Resp BP Pulse Ox 98.7 F 76 16 104/52 L 92 L 08/09/18 12:00 08/09/18 12:00 08/09/18 12:00 08/09/18 12:00 08/09/18 12:00 Surgery Progress Note: Results - Labs Result Diagrams: 08/09/18 04:06 08/09/18 04:06 Lab results: Laboratory Results - last 24 hr 08/09/18 08/09/18 08/09/18 04:06 04:06 06:25 WBC 7.7 RBC 4.34 L Hgb 11.8 L Hct 37.4 L MCV 86.2 MCH 27.1 MCHC 31.4 L RDW 15.7 H Plt Count 182 MPV 8.3 Neutrophils % (Manual) 48 Band Neuts % (Manual) 29 H Lymphocytes % (Manual) 12 L Monocytes % (Manual) 11 H Sodium 142 Potassium 4.1 Chloride 107 Carbon Dioxide 24 Anion Gap 15 BUN 20 Creatinine 0.71 Estimated GFR (MDRD) Greater than 90 Glucose 72 L POC Glucose 77 Calcium 8.6 08/09/18 11:32 WBC RBC Hgb Hct MCV MCH MCHC RDW Plt Count MPV Neutrophils % (Manual) Band Neuts % (Manual) Lymphocytes % (Manual) Monocytes % (Manual) Sodium Potassium Chloride Carbon Dioxide Anion Gap BUN Creatinine Estimated GFR (MDRD) Glucose POC Glucose 77 Calcium
--- NOTE | 2018-08-09 18:02 | MRI ---
MRI THORACIC SPINE WITHOUT CONTRAST: 08/09/18 HISTORY: Back pain and leg pain. COMPARISON: Chest, abdomen and pelvis CT 01/06/18. FINDINGS: The cord signal is normal. No cord impingement. No marrow infiltrative process. There is no neural foraminal narrowing. At The level of T10 on the ri ght side of the cord, likely intradural extramedullary, is an ovoid mass not seen on the axial images as the axial images are done through the disc spaces. This measures 10 mm x 5 mm. There is moderate degenerative disc space height loss at T11-T12 with circumferential disc osteophyte complex with minimal effacement in ventral CSF space. The aortic contour is mildly tortuous. No aneurysmal dilatation is appreciated. No significant pleura l effusion. IMPRESSION: Concern for a 5 x 10 mm mass which is intradural extramedullary at the level of T10 not well seen on this examination on the axial images. Postcontrast study localized at this area would be recommended . POS: [facility]
--- NOTE | 2018-08-09 18:44 | MRI ---
MRI LUMBAR SPINE WITHOUT CONTRAST 08/09/18 INDICATION: Fell out of bed on Rakesh with low back pain. COMPARISON: Prior CT of the abdomen and pelvis dated 07/29/18. FINDINGS: No acute fracture or subluxation is grossly evident. There is mild epidural lipomatosis seen involvin g the lumbar spine. There is very subtle grade I anterolisthesis of L5 on S1. There is a broad based bulge with mild to m oderate facet joint degenerative change. No appreciable central canal or neural foraminal narrowing i s evident. At L4-5, there is severe left and moderate right facet joint degenerative change. There is grade I an terolisthesis. There is no appreciable central canal or neural foraminal narrowing. At L3-4, there is a broad based bulge with mild facet joint degenerative change but no appreciable ce ntral canal or neural foraminal narrowing. At L2-3, there is mild facet joint degenerative change but no appreciable central canal or neural for aminal narrowing. At L1-2, there is a broad based bulge with facet hypertrophy in addition to epidural lipomatosis jud cing mild to moderate central canal narrowing. There is mild bilateral neural foraminal narrowing at this level. At T12-L1, there is no appreciable central canal or neural foraminal narrowing. IMPRESSION: 1. Degenerative change with epidural lipomatosis induces mild to moderate central canal at L1-L2 with mild bilateral neural foraminal narrowing. 2. Mild grade I anterolisthesis of L4-L5 and L5-S1 due to degenerative change. 3. No definite acute fracture or subluxation demonstrated. POS: [facility]
[2018-08-10] MEDS: Sodium Chloride 0.9% 1,000 ML IV SCH ×2 (01:26→14:44)
[2018-08-10] MEDS: metroNIDAZOLE 500 MG in Premix Bag 1 BAG IVPB SCH ×3 (01:26→18:05)
[2018-08-10] MEDS: Morphine 4 MG/ML VIAL SLOW IVP PRN (01:27)
[2018-08-10] MEDS: Pantoprazole 40 MG VIAL IVP SCH (08:39)
[2018-08-10] MEDS: Insulin Glargine 60 UNITS in Pre-Filled Syringe 1 EACH SC SCH ×2 (08:42→20:52)
--- NOTE | 2018-08-10 13:20 | PDOC.PN ---
- Subjective Encounter Start Date: 08/10/18 Encounter Start Time: 13:19 Mr. Greco was seen today in follow-up of Abdominal pain. He says his symptoms are improving some. He had been constipated, but says he is now having bowel movement, which are a bit loose. - Objective Resuscitation Status - Order Detail: 08/08/18 17:36 Resuscitation Status Routine Resuscitation Status: FULL: Full Resuscitation Discussed with: Patient MAR Reviewed: Yes Vital Signs & Weight: Vital Signs (12 hours) Temp Pulse Resp BP Pulse Ox 08/10/18 08:00 98.7 F 83 18 157/70 H 97 08/10/18 03:26 97.4 F L 72 16 126/63 93 L Weight Weight 215 lb I&O: 08/09/18 08/10/18 08/11/18 06:59 06:59 06:59 Intake Total 1280 1280 Output Total 750 600 Balance 530 680 Result Diagrams: 08/09/18 04:06 08/09/18 04:06 Additional Labs: Accuchecks 08/10/18 08/10/18 08/09/18 11:06 05:45 20:55 POC Glucose 170 H 75 103 08/09/18 16:34 POC Glucose 75 Phys Exam - Physical Examination HEENT: PERRLA Respiratory: no wheezing, no rales, no rhonchi, clear to auscultation bilateral Cardiovascular: RRR, no significant murmur, no rub Gastrointestinal: soft, no distention, positive bowel sounds + lower abdominal tenderness no rebound or guarding Musculoskeletal: pulses present, edema present trace pedal edema Dx/Plan (1) Abdominal pain Code(s): R10.9 - UNSPECIFIED ABDOMINAL PAIN Status: Acute Qualifiers: Abdominal location: lower abdomen Qualified Code(s): R10.30 - Lower abdominal pain, unspecified (2) DM2 (diabetes mellitus, type 2) Status: Chronic (3) HTN (hypertension) Code(s): I10 - ESSENTIAL (PRIMARY) HYPERTENSION Status: Chronic - Plan * Abdominal pain- slowly improving- possibly related to an infectious colitis * Will continue Cipro and Flagyl- advance his diet to full liquids * MRI results were noted. I discussed these with the patient including the abnormality seen on the T-spine. I dougt this is the cause of his symptoms, and recommended that he idscuss this with his Primary Care Physician, and they can decide whether or not to pursue a contrast MRI * HTN- blood pressure is controlled * DM- blood glucose is stable.
--- NOTE | 2018-08-10 14:55 | PDOC.GSPN ---
Surgery Progress Note: Subj - Subjective Narrative: Patient is feeling better today. His abdominal pain has improved and he is having bowel movements. These are still somewhat loose but he has not had any blood or mucus in them. His abdomen is much less tender to palpation. Vital signs are stable. Assessment/plan: Abdominal pain, likely due to enteritis. Seems to be responding to current management. We'll continue to follow. No new recommendations. Surgery Progress Note: Obj - Vital signs Vital signs: Vital Signs - Most Recent Temp Pulse Resp BP Pulse Ox 98.1 F 70 18 154/77 H 93 L 08/10/18 12:55 08/10/18 12:55 08/10/18 12:55 08/10/18 12:55 08/10/18 12:55 Surgery Progress Note: Results - Labs Result Diagrams: 08/09/18 04:06 08/09/18 04:06 Lab results: Laboratory Results - last 24 hr 08/10/18 08/10/18 05:45 11:06 POC Glucose 75 170 H
[2018-08-10] MEDS: Amitriptyline HCl 25 MG TAB PO SCH (19:59)
[2018-08-10] MEDS: OLANZapine 2.5 MG TAB PO SCH (20:02)
[2018-08-10] MEDS: Simvastatin 20 MG TAB PO SCH (20:02)
[2018-08-11] MEDS: metroNIDAZOLE 500 MG in Premix Bag 1 BAG IVPB SCH (01:59)
[2018-08-11] MEDS: Sodium Chloride 0.9% 1,000 ML IV SCH ×2 (04:15→15:37)
[2018-08-11] MEDS: Pantoprazole 40 MG VIAL IVP SCH (09:09)
[2018-08-11] MEDS: metroNIDAZOLE 500 MG TAB PO SCH ×3 (09:09→20:43)
[2018-08-11] MEDS: Tamsulosin HCl 0.4 MG CAP PO SCH (09:09)
--- NOTE | 2018-08-11 10:10 | PQF ---
EDU MARIN TONI MD [id number] CLINICAL DOCUMENTATION IMPROVEMENT CLARIFICATION FORM: ICD-10 Updated PLEASE DO AN ADDENDUM TO THE PROGRESS NOTE WITH ANY DOCUMENTATION UPDATES OR ADDITIONS AND CARRY THROUGH TO DC SUMMARY. THANK YOU. DATE: 08/11 ATTN: DR. ZAIDA BAUER Please exercise your independent, professional judgment in responding to the clarification form. Clinical indicators are provided on the bottom of this form for your review. Please check appropriate box(es): [X ] Sepsis due to: (Pna, UTI, gangrenous gall bladder, etc.) ____Infectious colitis [ ] SIRS due to non-infectious process (please specify etiology) [ ] with organ dysfunction [ ] without organ dysfunction [ ] Localized infection without sepsis [ ] Other diagnosis [ ] Unable to determine In addition, please specify: Present on Admission (POA): [X ] Yes [ ] No [ ] Unable to determine For continuity of documentation, please document condition throughout progress notes and discharge summary. Thank You. CLINICAL INDICATORS - SIGNS / SYMPTOMS / LABS ER PRESENTATION 08/08: T: 100.7 RR: 18-28 HR: 79-102 LABS: BANDS 29% (3/), LACTIC ACID 3.0, 2.9 H&P DOCUMENTATION (BRYCE) 08/08: 2) ELEVATED LACTIC ACID W/ELEVATED HR WELL. CONCERN FOR SEPSIS SYNDROME RISKS: POSSIBLE INFECTIOUS COLITIS ELEVATED LACTIC ACID (3.0, 2.9) TREATMENT: IVF (NS 08/08 - PRESENT) IV ANTIBIOTICS (FLAGYL 08/08 - PRESENT (CHANGED TO PO 08/11; CIPRO 08/08 - 20 ( CHANGED TO PO 08/11) THANK YOU! Maritza (This form is maintained as a part of the permanent medical record) 2014 [employer]. All Rights Reserved Maritza Gamboa RN, BSN [email or web address] Office: [phone] [facility]
--- NOTE | 2018-08-11 13:50 | PDOC.PN ---
- Subjective Encounter Start Date: 08/11/18 Encounter Start Time: 13:49 Mr. Greco was seen today in follow-up of abdominal pain. He says it is a little better. He was able to tolerate a solid diet, but he has had a lot of diarrhea, starting last night, and into this morning. - Objective Resuscitation Status - Order Detail: 08/08/18 17:36 Resuscitation Status Routine Resuscitation Status: FULL: Full Resuscitation Discussed with: Patient MAR Reviewed: Yes Vital Signs & Weight: Vital Signs (12 hours) Temp Pulse Resp BP Pulse Ox 08/11/18 08:00 97.9 F 69 18 169/80 H 97 08/11/18 04:21 98.5 F 73 16 149/70 H 92 L Weight Weight 215 lb I&O: 08/10/18 08/11/18 08/12/18 06:59 06:59 06:59 Intake Total 1280 3040 Output Total 750 600 Balance 530 2440 Result Diagrams: 08/09/18 04:06 08/09/18 04:06 Additional Labs: Accuchecks 08/11/18 08/11/18 08/11/18 12:03 05:37 01:59 POC Glucose 147 H 107 104 08/10/18 08/10/18 20:51 16:31 POC Glucose 173 H 187 H Phys Exam - Physical Examination HEENT: PERRLA Respiratory: no wheezing, no rales, no rhonchi, clear to auscultation bilateral Cardiovascular: RRR, no significant murmur, no rub Gastrointestinal: soft, no distention, positive bowel sounds + mild diffuse tenderness no rebound or gaurding Musculoskeletal: no edema Dx/Plan (1) Abdominal pain Code(s): R10.9 - UNSPECIFIED ABDOMINAL PAIN Status: Acute Qualifiers: Abdominal location: lower abdomen Qualified Code(s): R10.30 - Lower abdominal pain, unspecified (2) DM2 (diabetes mellitus, type 2) Status: Chronic (3) HTN (hypertension) Code(s): I10 - ESSENTIAL (PRIMARY) HYPERTENSION Status: Chronic - Plan * Abdominal pain- Likely due to colitis- agree with stool studies * DM- blood glucose is stable. 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
--- NOTE | 2018-08-11 15:02 | PDOC.GSPN ---
Surgery Progress Note: Subj - Subjective Narrative: The patient continues to slowly improve. His abdominal pain is better. He is not having any nausea and he is eating again. He did have several loose bowel movements last night. Abdomen is soft and much less tender than before. Bowel sounds are present. Vitals are normal. Assessment/plan: Abdominal pain likely due to enteritis, resolving. No surgical intervention necessary. Signing off. Surgery Progress Note: Obj - Vital signs Vital signs: Vital Signs - Most Recent Temp Pulse Resp BP Pulse Ox 97.9 F 69 18 169/80 H 97 08/11/18 08:00 08/11/18 08:00 08/11/18 08:00 08/11/18 08:00 08/11/18 08:00 Surgery Progress Note: Results - Labs Result Diagrams: 08/09/18 04:06 08/09/18 04:06 Lab results: Laboratory Results - last 24 hr 08/11/18 08/11/18 05:37 12:03 POC Glucose 107 147 H
[2018-08-11] MEDS ORDERED: Rivaroxaban 10 MG TAB PO SCH (17:00)
[2018-08-11] MEDS ORDERED: Cipro 250 MG TAB PO SCH (20:00)
[2018-08-11] MEDS: Amitriptyline HCl 25 MG TAB PO SCH (20:43)
[2018-08-11] MEDS: Simvastatin 20 MG TAB PO SCH (20:44)
[2018-08-11] MEDS: Ciprofloxacin 500 MG TAB PO SCH (20:44)
[2018-08-11] MEDS: OLANZapine 2.5 MG TAB PO SCH (20:47)
[2018-08-12] MEDS: Sodium Chloride 0.9% 1,000 ML IV SCH ×2 (01:21→09:14)
[2018-08-12 04:51] LABS: Hemoglobin 10.7 g/dL (14.0-18.0); Platelet Count 194 thou/uL (130-400)
[2018-08-12 05:07] LABS: Calc. Creatinine Clearance 163 mL/min (70-130); Estimated GFR-MDRD Greater than 90
[2018-08-12] MEDS: Ciprofloxacin 500 MG TAB PO SCH (06:04)
[2018-08-12 08:33] VITALS: TEMP 97.7
[2018-08-12] MEDS: hydrALAZINE 20 MG/ML VIAL SLOW IVP PRN ×2 (08:57→11:52)
[2018-08-12] MEDS: metroNIDAZOLE 500 MG TAB PO SCH ×2 (08:57→14:48)
[2018-08-12] MEDS: Pantoprazole 40 MG VIAL IVP SCH (08:57)
[2018-08-12] MEDS: Tamsulosin HCl 0.4 MG CAP PO SCH (08:58)
[2018-08-12] MEDS ORDERED: Propranolol HCl LA 80 MG CAP PO SCH (09:00)
[2018-08-12 11:52] VITALS: BP 184/76
--- NOTE | 2018-08-12 12:21 | PDOC.PN ---
- Subjective Encounter Start Date: 08/12/18 Encounter Start Time: 12:20 Mr. Greco was seen today in follow-up of Colitis. He is feeling much better. He does not have any new complaints. - Objective Resuscitation Status - Order Detail: 08/08/18 17:36 Resuscitation Status Routine Resuscitation Status: FULL: Full Resuscitation Discussed with: Patient YNES Reviewed: Yes Vital Signs & Weight: Vital Signs (12 hours) Temp Pulse Resp BP BP Pulse Ox 08/12/18 11:52 61 184/76 H 08/12/18 08:00 97.7 F 54 L 18 187/83 H 94 L Weight Weight 215 lb I&O: 08/11/18 08/12/18 08/13/18 06:59 06:59 06:59 Intake Total 3040 4120 Output Total 600 Balance 2440 4120 Result Diagrams: 08/12/18 04:36 08/12/18 04:36 Additional Labs: Accuchecks 08/12/18 08/11/18 08/11/18 05:40 20:10 16:02 POC Glucose 136 H 190 H 172 H Phys Exam - Physical Examination HEENT: PERRLA Respiratory: no wheezing, no rales, no rhonchi, clear to auscultation bilateral Cardiovascular: RRR, no significant murmur, no rub Gastrointestinal: soft, non-tender, no distention, positive bowel sounds Musculoskeletal: no edema Dx/Plan (1) Abdominal pain Code(s): R10.9 - UNSPECIFIED ABDOMINAL PAIN Status: Acute Qualifiers: Abdominal location: lower abdomen Qualified Code(s): R10.30 - Lower abdominal pain, unspecified (2) DM2 (diabetes mellitus, type 2) Status: Chronic (3) HTN (hypertension) Code(s): I10 - ESSENTIAL (PRIMARY) HYPERTENSION Status: Chronic - Plan * Colitis- improved * Diarrhea- has resolved- he is stable for discharge home today.
--- NOTE | 2018-08-12 21:19 | DIS ---
DATE OF ADMISSION: 08/08/2018 DATE OF DISCHARGE: 08/12/2018 PRIMARY CARE PHYSICIAN: Dr. Jazmin Tamayo. DISCHARGE DIAGNOSES: 1. Infectious colitis. 2. Sepsis secondary to #1. 3. Hypertension. 4. Diabetes mellitus type 2. 5. Hyperlipidemia. 6. History of amyloid angiopathy. 7. Gastroesophageal reflux disease. 8. Benign prostatic hyperplasia. DISCHARGE MEDICATIONS: Include; 1. Ciprofloxacin 500 mg one p.o. twice a day for 3 days. 2. Metronidazole 500 mg three times a day for 3 additional days. 3. Elavil 25 mg at bedtime. 4. Flomax 0.4 mg daily. 5. Simvastatin 20 mg at bedtime. 6. Xarelto 20 mg daily, that is for prior history of PE and DVT. 7. Propranolol extended release 80 mg daily. 8. Omeprazole 20 mg daily. 9. Olanzapine 2.5 mg at bedtime. 10. Metformin 1000 mg twice daily. 11. Levemir insulin 130 units twice a day. 12. ER 1500 mg at bedtime. 13. Invokana 300 mg daily. PROCEDURES DONE DURING THE ADMISSION: The patient had a CT scan of the abdomen and pelvis, showing some bowel wall thickening of the left lower quadrant. The etiology was uncertain. It could be due to trauma, inflammation, or infiltrative process. There was some mild prosthetic enlargement and fatty liver. The patient had an MRI of the lumbar and thoracic spine showing some degenerative changes primarily and grade 1 anterolisthesis of L4-L5 and L5-S1 and on the thoracic MRI, there was some concern for a 5 to 10 mm mass in the intradural extramedullary space of T10, it was not well seen on the exam. CODE STATUS: Full code. ALLERGIES: CODEINE, PENICILLIN, AND SULFA. HOSPITAL COURSE: Mr. Greco is a 63-year-old gentleman who presented to the emergency room complaining of abdominal pain, he noted it after he had fallen out of the bed on to his abdomen. However, it was noted from further history that he was having some diarrhea on and off during the days prior to seeking medical attention. It was initially thought that this could be some type of traumatic injury given that he was on blood thinners. However, there was no evidence of a large intraabdominal hematoma to account for his symptoms and stool studies were positive for Campylobacter. After he was in the hospital, he developed severe profuse diarrhea. However, several days later, the diarrhea improved as well as his abdominal pain. He was also evaluated by General Surgery due to the concerns for possible intraabdominal process. The patient's symptoms improved and it is felt that this was likely an infectious colitis especially given the symptomatology on admission with an elevated lactic acid and mild fever or elevated temperature and he is being discharged home with close outpatient followup. Job ID: [id number]
== END 2018-08-12 15:10 | disposition home or self-care (01) | DRG 872 ==
LOC: ERS 12:25 → ERHOLD 16:57 → ONC 19:59
PROVIDERS: ADMIT Emergency Medicine; ATTEND Emergency Medicine
DX: A41.9 Sepsis, unspecified organism (principal); A09 Infectious gastroenteritis and colitis, unspecified; I10 Essential (primary) hypertension; E11.9 Type 2 diabetes mellitus without complications; E78.5 Hyperlipidemia, unspecified; K21.9 Gastro-esophageal reflux disease without esophagitis; N40.0 Benign prostatic hyperplasia without lower urinary tract symptoms; G24.01 Drug induced subacute dyskinesia; F31.9 Bipolar disorder, unspecified; E66.9 Obesity, unspecified; Z79.84 Long term (current) use of oral hypoglycemic drugs; Z79.4 Long term (current) use of insulin; Z79.01 Long term (current) use of anticoagulants; Z79.899 Other long term (current) drug therapy; Z90.49 Acquired absence of other specified parts of digestive tract; Z88.0 Allergy status to penicillin; Z88.2 Allergy status to sulfonamides; Z88.5 Allergy status to narcotic agent; Z86.718 Personal history of other venous thrombosis and embolism; Z86.711 Personal history of pulmonary embolism; Z68.30 Body mass index [BMI] 30.0-30.9, adult
CPT/HCPCS: 36415; 36416; 72146; 72148; 74018; 74177; 80048; 80053; 81003; 82565; 83605; 83630; 83690; 84484; 85014; 85018; 85025; 85049; 85610; 85730; 86850; 86900; 86901; 87040; 87045; 87046; 87324; 87449; 87899; 96361; 96365; 96374; 96375; 96376; C9113; J0360; J0744; J1825; J2270; J2405; J2765; Q9966

== ENCOUNTER 2018-10-11 09:52 | Day surgery (SDC) | payer BC ==
[2018-10-10 12:28] VITALS: BMI 32.5
[2018-10-11] MEDS ORDERED: Gadobenate Dimeglumine 529 MG/1 ML (20ML VIAL) ONE (11:36)
[2018-10-11] MEDS ORDERED: Fentanyl 100 MCG/2 ML VIAL ONE (12:02)
[2018-10-11] MEDS ORDERED: Lidocaine 1% PF 5 ML VIAL ONE (13:22)
[2018-10-11] MEDS ORDERED: PROPOFOL 200 MG/20 ML VIAL ONE (13:22)
[2018-10-11] MEDS ORDERED: Ondansetron PF 4 MG/2 ML Vial ONE (13:22)
[2018-10-11 13:37] LABS: Estimated GFR-MDRD - POC Greater than 90
--- NOTE | 2018-10-11 16:25 | MRI ---
MRI BRAIN NONCONTRAST: DATE: 10/11/2018 HISTORY: 63-year-old male with intracranial cavernous malformations. Follow-up. COMPARISON: 01/07/2018. FINDINGS: An approximately 1 x 0.5 cm focal intra-axial lesion in the left paramedian frontal lobe has been dem onstrated to be unchanged on multiple prior CT's. It has what appears to be a thin rim of hemosiderin, magnetic susceptibility artifact on gradient echo sequence, and a speckled pattern of in ternal heterogeneous T2 hyperintensity, consistent with a cavernous malformation. There is a 0.6 cm focal lesion in the right cerebral peduncle of the midbrain, with a similar appeara nce, consistent with another cavernous malformation. In addition to these, there is a large number of additional foci of punctate hemosiderin (demonstrati ng magnetic susceptibility blooming artifact on the gradient echo sequence), throughout the bilateral cerebral subcortical and deep white matter, midbrain and ivonne, and bilateral cerebellar hem ispheres. The differential diagnosis would be chronic hypertensive encephalopathy versus amyloid angiopathy. The fact that there is relative lack of such prior microhemorrhages in the basal ganglia, and the lack of significant chronic ischemic white matter changes, would favor amyloid angiopathy over chronic hypertensive encephalopathy. There is no mass effect or midline shift. Ventricles are normal in size and configuration. There is n o evidence of acute or subacute intra-axial hemorrhage. No mass effect, midline shift, or extra-axial fluid collection. There is total opacification of bilateral maxillary sinuses. There is n o restricted diffusion. There is diffusely increased dural, enhancement. This is nonspecific, and the differential diagnosis includes idiopathic reason, intracranial hypotension, and pleural metastas is. Metastasis is unlikely unless there is a known primary malignancy. There is a small, well-circumscribed focal right calvarial T2 hyperintense lesion which is unchanged and benign. There is no abnormal intra-axial enhancement outside of the cavernous malformations. No vasogenic or cytotoxic edema. IMPRESSION: 1. Evidence for amyloid angiopathy: a very large number of tiny, remote (i.e. old) microhemorrhages t hroughout the cerebral hemispheres, cerebellum, and brainstem: 2. Two small cavernous malformations: in the left frontal lobe and right cerebral peduncle (of midbra in). 3. Diffusely increased pachymeningeal enhancement 4. No acute or aggressive intra-axial findings. 5. Severe total opacification of bilateral maxillary sinuses.
--- NOTE | 2018-10-11 16:39 | MRI ---
MRI thoracic spine with and without contrast: DATE: 10/11/2018 HISTORY: 63-year-old male with intraspinal mass found on noncontrast thoracic spine MRI of 08/09/2018 FINDINGS: Just medial to the right T10 pedicle, there is an approximately 10 x 8 x 4 mm intradural, extra medul lopez mass within the spinal canal that abuts the right lateral dural surface and abuts the right side of the spinal cord, gently displacing it slightly to the left. There is no abnormal intramedullary signal or abnormal intramedullary enhancement. No syrinx. No sign ificant central spinal canal stenosis at any level. No abnormal bone marrow signal or enhancement. Extensive, large patchy regions of signal abnormality in the bilateral lungs. IMPRESSION: 1. Solitary, enhancing small right-sided intraspinal mass, extramedullary-intradural. Differential di agnosis includes nerve sheath tumor and meningioma. Throughout metastasis is considered much less likely given absence of brain tumor. 2. Bilateral lower lobe pulmonary infiltrates, incompletely evaluated. Pneumonia versus atelectasis.
--- NOTE | 2018-10-11 16:44 | MRI ---
MRI LUMBAR SPINE WITH AND WITHOUT CONTRAST: 10/11/18 Multiplanar and multisequential imaging lumbar spine obtained with and without contrast. INDICATIONS: Back pain. Cavernous malformations. COMPARISON: Comparison made to MRI of lumbar spine of 08/09/18. Lumbar vertebrae continue to maintain normal height and alignment. There are degenerative disc purvis es at the L1-2 level. This was described on prior exam. There is a broad based disc bulge at this lev el which mildly flattens anterior thecal sac. There is posterior hypertrophic changes resulting in m ild to moderate central canal stenosis which is unchanged. No significant disc bulge at L2-3, L3-4 or L4-5. A slight anterolisthesis at L4-5. Facet hypertrophy is seen with facet arthrosis and fluid in the facet joints at L4-5 and at L5-S1. Posterior inflammato ry changes are seen with enhancement between the spinous processes of L4 and L5. This could represent Baastrup syndrome. IMPRESSION: 1. Disc desiccation with disc bulge at L1-2 compressing the anterior thecal sac is again seen, s table from the recent exam of 08/09/18. 2. Inflammatory change with enhancement between the spinous processes of L4-5 is noted as descri bed above. Question Baastrup syndrome. POS: OFF
[2018-10-11] MEDS ORDERED: Promethazine HCl 25 MG/ML VIAL ONE (16:45)
--- NOTE | 2018-10-11 17:02 | MRI ---
MRI CERVICAL SPINE WITH AND WITHOUT CONTRAST 10/11/18 Multiplanar and multisequential imaging of the cervical spine obtained pre and post IV contrast. INDICATIONS: Cavernous malformation. No comparison exam. Exam is severely limited due to motion artifact on all sequences. Cervical vertebrae maintain height. There are degenerative changes. Degenerative disc changes are seen at C5-6. No significant disc bulge or spondylosis at C2-3, C3-4, C4-5. At C5-6, slight posterolisthesis is noted. There is posterior disc bulge and spondylosis abutting and mildly flattening the anterior cord. No significant foraminal stenosis. At C6-7, minimal disc bulge and spondylosis. Anterior subarachnoid space is preserved. No abnormal cord signal. No abnormal enhancement. IMPRESSION: Posterior disc bulge and spondylosis at C5-6 impinges on the anterior cord. POS: OFF
== END 2018-10-11 18:45 | disposition home or self-care (01) ==
LOC: SDC/OP 09:52
PROVIDERS: ATTEND Physician Assistant Surgical
DX: E85.4 Organ-limited amyloidosis (principal); I68.0 Cerebral amyloid angiopathy; Q28.3 Other malformations of cerebral vessels; M48.061 Spinal stenosis, lumbar region without neurogenic claudication; M50.322 Other cervical disc degeneration at C5-C6 level; Z88.0 Allergy status to penicillin; Z88.5 Allergy status to narcotic agent
CPT/HCPCS: 36416; 70553; 72156; 72157; 72158; 82565; A9577; J2001; J2405; J2550; J2704; J3010

== ENCOUNTER 2018-10-24 00:02 | Emergency (ER) | payer BC ==
[2018-10-24 00:40] LABS: #Basophils 0.1 thou/uL (0.0-0.2); #Eosinphils 0.1 thou/uL (0.0-0.7); #Monocytes 0.6 thou/uL (0.11-0.59); #Neutrophils 2.1 thou/uL (1.40-6.50); %Basophils 1.2 % (0.0-1.0); %Eosinophils 1.2 % (0.0-10.0); %Lymphocytes 42.2 % (21.0-51.0); %Monocytes 11.6 % (0.0-10.0); %Neutrophils 43.8 % (42.0-75.0); Hemoglobin 12.5 g/dL (14.0-18.0); Mean Corpuscular Hemoglobin 27.8 pg (27.0-31.0); Mean Corpuscular Volume 84.2 fL (78.0-98.0); Mean Platelet Volume 7.8 fL (7.4-10.4); Platelet Count 225 thou/uL (130-400); RBC Distribution Width 14.7 % (11.5-14.5); Red Blood Cell (RBC) Count 4.48 mill/uL (4.70-6.10); White Blood Cell (WBC) Count 4.7 thou/uL (4.8-10.8)
[2018-10-24 00:59] LABS: ALT (SGPT) 26 U/L (8-55); AST (SGOT) 15 U/L (5-34); Albumin 4.1 g/dL (3.4-4.8); Alkaline Phosphatase 65 U/L (40-150); Anion Gap 14 mmol/L (10-20); BUN (Urea Nitrogen) 12 mg/dL (8.4-25.7); Bilirubin, Total 0.4 mg/dL (0.2-1.2); Calc. Creatinine Clearance 0 mL/min (70-130); Calcium 9.6 mg/dL (7.8-10.44); Carbon Dioxide 25 mmol/L (23-31); Chloride 104 mmol/L (98-107); Estimated GFR-MDRD Greater than 90; Globulin 2.9 g/dL (2.4-3.5); Glucose 188 mg/dL (80-115); Potassium 4.1 mmol/L (3.5-5.1); Sodium 139 mmol/L (136-145)
[2018-10-24 01:22] LABS: Bilirubin Negative (Negative); Blood, Urine Negative (Negative); Clarity CLEAR (Clear); Glucose, Urine (Dipstick) >=1000 mg/dL (Negative); Leukocyte Negative (Negative); Nitrite Negative (Negative); Protein, Urine (Dipstick) Negative (Neg-Trace); Specific Gravity, Urine 1.035 (1.002-1.036); Urobilinogen 0.2 mg/dL (0.2-1.0)
--- NOTE | 2018-10-24 07:57 | CT ---
Final report by Dr. Jeffrey Emergency after-hours study. CT BRAIN NONCONTRAST: DATE: 10/24/2018 HISTORY: 63-year-old male with dizziness and nausea COMPARISON: 04/21/2018 FINDINGS: There is no evidence of acute intra-axial or extra-axial hemorrhage. There is no midline shift or any other mass effect. There is no extra-axial fluid collection. There is no evidence of obstructive hydrocephalus. Calvarium is intact. There is an approximately 1.5 x 1 cm moderately hyperdense mass i n the left paramedian frontal lobe that has been stable. There is a few millimeter size irregularly-shaped focal intra-axial hyperdensity in the contralateral right anterior frontal lobe wh ich is also stable. There has been no significant interval change overall. Prior MRI demonstrated a large number of other punctate foci of hemosiderin. Severe opacification of bilateral maxillary sinus es, chronic. Agree with preliminary report by [facility]. IMPRESSION: 1. No acute intracranial findings. 2. Left frontal lobe cavernous malformation. 3. Severe opacification of bilateral maxillary sinuses, chronic
--- NOTE | 2018-10-29 11:34 | EKG ---
Test Reason : Blood Pressure : / mmHG Vent. Rate : 070 BPM Atrial Rate : 070 BPM P-R Int : 152 ms QRS Dur : 128 ms QT Int : 414 ms P-R-T Axes : 033 -19 029 degrees QTc Int : 447 ms Normal sinus rhythm Right bundle branch block Abnormal ECG Confirmed by SWATHI ARAYA ([id number]), editorial director HAVEN GREENWOOD ([id number]) on 10/29/2018 11:33:24 AM Referred By: Confirmed By:SWATHI ARAYA
== END 2018-10-24 03:32 | disposition home or self-care (01) ==
LOC: ERS 00:02
DX: I10 Essential (primary) hypertension (principal); E11.9 Type 2 diabetes mellitus without complications; E78.5 Hyperlipidemia, unspecified; E78.2 Mixed hyperlipidemia; F31.9 Bipolar disorder, unspecified; Z79.899 Other long term (current) drug therapy; Z79.4 Long term (current) use of insulin
CPT/HCPCS: 70450; 80053; 81003; 84484; 85025; 93005; 94760; 96360

== ENCOUNTER 2018-11-28 14:01 | Observation (INO) | payer BC ==
[2018-11-28 14:42] LABS: #Eosinphils 0.1 thou/uL (0.0-0.7); #Monocytes 0.7 thou/uL (0.11-0.59); #Neutrophils 2.8 thou/uL (1.40-6.50); %Basophils 0.5 % (0.0-1.0); %Eosinophils 1.2 % (0.0-10.0); %Lymphocytes 36.6 % (21.0-51.0); %Monocytes 12.1 % (0.0-10.0); %Neutrophils 49.7 % (42.0-75.0); Hemoglobin 13.3 g/dL (14.0-18.0); Mean Corpuscular HGB CONC 32.2 g/dL (32.0-36.0); Mean Corpuscular Hemoglobin 27.4 pg (27.0-31.0); Mean Corpuscular Volume 85.2 fL (78.0-98.0); Mean Platelet Volume 8.1 fL (7.4-10.4); Platelet Count 208 thou/uL (130-400); RBC Distribution Width 15.5 % (11.5-14.5); Red Blood Cell (RBC) Count 4.87 mill/uL (4.70-6.10); White Blood Cell (WBC) Count 5.5 thou/uL (4.8-10.8)
[2018-11-28] MEDS ORDERED: Aspirin Chewable 81 MG TAB ONE ×2 (14:45→14:49)
--- NOTE | 2018-11-28 14:57 | RAD ---
SINGLE VIEW CHEST: Date: 11/28/18 COMPARISON: 05/09/18. HISTORY: Chest pain. FINDINGS: Single view of the chest shows a normal sized cardiomediastinal silhouette. There is no evidence of c onsolidation, mass, or pleural effusion. The bones are unremarkable. IMPRESSION: No evidence of acute cardiopulmonary disease. POS: [facility]
[2018-11-28 15:09] LABS: ALT (SGPT) 33 U/L (8-55); AST (SGOT) 24 U/L (5-34); Albumin 4.2 g/dL (3.4-4.8); Alkaline Phosphatase 69 U/L (40-150); Anion Gap 17 mmol/L (10-20); BUN (Urea Nitrogen) 20 mg/dL (8.4-25.7); Bilirubin, Total 0.5 mg/dL (0.2-1.2); CK (CPK) 91 U/L (30-200); Calc. Creatinine Clearance 0 mL/min (70-130); Calcium 9.9 mg/dL (7.8-10.44); Carbon Dioxide 23 mmol/L (23-31); Chloride 102 mmol/L (98-107); Estimated GFR-MDRD 80; Globulin 3.5 g/dL (2.4-3.5); Glucose 237 mg/dL (80-115); Lipase 59 U/L (8-78); Potassium 4.8 mmol/L (3.5-5.1); Protein, Total 7.7 g/dL (5.8-8.1); Sodium 137 mmol/L (136-145)
--- NOTE | 2018-11-28 16:07 | CT ---
CT ANGIOGRAM THORAX WITH CONTRAST: (CTA pulmonary angiogram) DATE: 11/28/2018 HISTORY: 63-year-old male with history of DVT and prior PE presents with chest pain. TECHNIQUE: IV injection of iodinated contrast. Scan acquisition timing attempted to coincide with iodinated contrast bolus reaching maximal density in pulmonary arteries. 3-D MIP reconstructions. FINDINGS: Pulmonary thromboembolism: None. Lungs: No consolidation or edema. Pneumothorax: None. Pleural effusion: None. Thoracic aorta: No dissection or aneurysm. No cardiomegaly. No pericardial effusion. No mediastinal or hilar lymphadenopathy. Trachea and major bronchi: Patent and clear. IMPRESSION: No pulmonary thromboembolism.
[2018-11-28] MEDS ORDERED: Acetaminophen 325 MG TAB PO PRN (20:12)
[2018-11-28 20:20] VITALS: BMI 31.9
[2018-11-28] MEDS ORDERED: HumaLOG 300 UNITS/3 ML VIAL SC PRN ×2 (21:13)
[2018-11-28] MEDS ORDERED: Dextrose 5% in Water 1,000 ML IV PRN (21:13)
[2018-11-28] MEDS ORDERED: Dextrose 50% Abboject 50 ML SYRINGE SLOW IVP PRN (21:13)
[2018-11-28] MEDS ORDERED: clonazePAM 0.5 MG TAB PO SCH (22:00)
[2018-11-28] MEDS ORDERED: Ondansetron PF 4 MG/2 ML Vial IVP PRN (22:36)
[2018-11-28] MEDS ORDERED: Ondansetron ODT 4 MG TAB PO PRN (22:36)
--- NOTE | 2018-11-29 04:10 | HP ---
PRIMARY CARE PHYSICIAN: Jazmin Tamayo MD CHIEF COMPLAINT: Chest pain. HISTORY OF PRESENT ILLNESS: Mr. Greco is a pleasant 63-year-old man with past medical history of hypertension, hyperlipidemia, diabetes mellitus type 2, bilateral DVT and PE, currently on Xarelto, who had presented to [facility] earlier today after he experienced left-sided chest pain that radiated across the front of his chest. He states the symptoms came on suddenly and since then has came in waves, he is also reporting some left-sided back pain as well. The patient denied any fever, chills, any headache, blurred vision, dizziness, any palpitations, shortness of breath, abdominal pain, nausea, or vomiting. He states his primary resourcing advisor is Dr. Gamez. His workup in the emergency department included serial troponins, which were found to be less than 0.010 x 3. Normal BNP of 23.8, normal lipase of 59 and all other lab work was essentially unremarkable. He underwent portable chest x-ray, which showed no evidence of acute cardiopulmonary disease. He also underwent a CTA of chest, which revealed no pulmonary thromboembolism. The patient's blood pressure and other vital signs remained stable, he was given 325 mg oral aspirin and an IV bolus of normal saline in the emergency department. It was determined that the patient undergo further workup for chest pain rule out. REVIEW OF SYSTEMS: All other systems reviewed and found to be negative unless mentioned in the HPI. PAST MEDICAL HISTORY: Hypertension, hyperlipidemia, diabetes mellitus type 2, and bilateral DVT and PE in 2013, currently on Xarelto. PAST SURGICAL HISTORY: Appendectomy, cholecystectomy, sinus surgery, surgical removal of his teeth and lesion removed from his pancreas. PAST PSYCHIATRIC HISTORY: Including bipolar disorder. SOCIAL HISTORY: Denies any alcohol, tobacco, or illicit drug use. KNOWN ALLERGIES: Codeine, penicillins and sulfa. CURRENT HOME MEDICATIONS: 1. Invokana 300 mg p.o. daily. 2. Clonazepam 0.25 mg sublingual b.i.d. 3. Divalproex 1000 mg p.o. nightly. 4. Levemir 130 units subcutaneous b.i.d. 5. Lisinopril 2.5 mg oral daily. 6. Zyprexa 2.5 mg p.o. nightly. 7. Propranolol 80 mg p.o. daily. 8. Xarelto 20 mg p.o. daily. 9. Simvastatin 20 mg p.o. nightly. 10. Tamsulosin 0.4 mg p.o. q.a.m. PHYSICAL EXAMINATION: VITAL SIGNS: Blood pressure 141/65, pulse 65, respirations 18, temperature 98.6 degrees Fahrenheit, and O2 saturation 100% on room air. GENERAL: The patient is awake, alert, and oriented x3. He is currently lying comfortably in bed and in no acute distress. HEENT: Atraumatic, normocephalic. Pupils are round and reactive to light. Extraocular muscles intact. Moist mucous membranes noted. Edentulous noted. NECK: Soft and supple. Trachea midline. CARDIOVASCULAR: Positive S1 and S2. Regular rate and rhythm. No murmur auscultated. RESPIRATORY: Clear to auscultation bilaterally. No wheezes, rales, or rhonchi. ABDOMEN: Soft, nontender. Bowel sounds present. MUSCULOSKELETAL: Strength 5+ bilateral upper and lower extremities. Moves all extremities equal. Pedal and radial pulses 2+ bilaterally. No edema noted. NEUROLOGIC: Cranial nerves 2 through 12 grossly intact. No focal deficits noted. Speech intact and normal. Gait not assessed. SKIN: Warm, dry, and intact. No rashes. No ulceration noted. PSYCHIATRIC: Good mood and affect. LABORATORY DATA: WBC 5.5, RBC 4.87, hemoglobin 13.3, hematocrit 41.5, platelet 208. Sodium 137, potassium 4.8, anion gap 17, BUN 20, creatinine 0.95, estimated GFR 80, glucose 119. Troponin less than 0.010 x3, BNP 23.8, lipase 59. DIAGNOSTIC IMAGING: Portable chest x-ray showed no evidence of acute cardiopulmonary disease. CTA of chest showed no pulmonary thromboembolism. ASSESSMENT/PLAN: 1. Chest pain. The patient will undergo cardiac stress testing likely in the morning for rule out acute coronary syndrome. So far, cardiac enzymes are normal along with normal BNP. The patient currently states that this chest pain is improved. He will be resumed on his home medications and blood pressure and other vital signs will be monitored. He will be monitored on telemetry floor under observation. Pending stress test results, Cardiology Services may be consulted. 2. Hypertension, continue the patient's home regimen. 3. Hyperlipidemia, continue home statin. 4. Diabetes mellitus. Continue home Levemir 130 units b.i.d. along with insulin sliding scale during hospital course with frequent Accu-Cheks. 5. History of deep venous thrombosis and pulmonary embolism. Continue on patient's home dose of Xarelto. 6. Deep venous thrombosis and gastrointestinal prophylaxis. 7. Code status, full code. 8. Disposition, the patient will undergo cardiac stress testing in the morning for acute coronary syndrome rule out. If this test is normal, he will likely be discharged home later tomorrow. However, if this shows any abnormalities, Cardiology Services will be consulted for further evaluation and recommendations. Job ID: [id number]
[2018-11-29 05:36] LABS: #Eosinphils 0.1 thou/uL (0.0-0.7); #Lymphocytes 2.4 thou/uL (1.20-3.40); #Monocytes 0.6 thou/uL (0.11-0.59); #Neutrophils 1.9 thou/uL (1.40-6.50); %Basophils 0.9 % (0.0-1.0); %Eosinophils 1.8 % (0.0-10.0); %Lymphocytes 47.9 % (21.0-51.0); %Monocytes 11.7 % (0.0-10.0); %Neutrophils 37.7 % (42.0-75.0); Hemoglobin 12.2 g/dL (14.0-18.0); Mean Corpuscular Hemoglobin 27.6 pg (27.0-31.0); Mean Corpuscular Volume 86.2 fL (78.0-98.0); Mean Platelet Volume 7.9 fL (7.4-10.4); Platelet Count 161 thou/uL (130-400); RBC Distribution Width 15.5 % (11.5-14.5); Red Blood Cell (RBC) Count 4.42 mill/uL (4.70-6.10); White Blood Cell (WBC) Count 5.1 thou/uL (4.8-10.8)
[2018-11-29 05:54] LABS: Anion Gap 12 mmol/L (10-20); BUN (Urea Nitrogen) 22 mg/dL (8.4-25.7); Calc. Creatinine Clearance 161 mL/min (70-130); Calcium 9.3 mg/dL (7.8-10.44); Carbon Dioxide 27 mmol/L (23-31); Chloride 105 mmol/L (98-107); Estimated GFR-MDRD Greater than 90; Glucose 93 mg/dL (80-115); Potassium 3.9 mmol/L (3.5-5.1); Sodium 140 mmol/L (136-145)
[2018-11-29 07:34] VITALS: TEMP 98.4
[2018-11-29] MEDS ORDERED: Acetaminophen 325 MG TAB PO PRN (08:27)
[2018-11-29] MEDS ORDERED: Tamsulosin HCl 0.4 MG CAP PO SCH (09:00)
[2018-11-29] MEDS ORDERED: Famotidine 20 MG TAB PO SCH (09:00)
[2018-11-29] MEDS ORDERED: INSULIN GLARGINE SC SCH (09:00)
[2018-11-29] MEDS ORDERED: Propranolol HCl LA 80 MG CAP PO SCH (09:00)
[2018-11-29] MEDS ORDERED: PRE FILLED SC SCH (09:00)
[2018-11-29] MEDS ORDERED: INSULIN DETEMIR SQ SCH (09:00)
[2018-11-29] MEDS ORDERED: clonazePAM 0.5 MG TAB PO SCH (09:00)
[2018-11-29] MEDS ORDERED: Lisinopril 2.5 MG TAB PO SCH (09:00)
[2018-11-29] MEDS ORDERED: Canagliflozin [Invokana] 300 MG PO SCH (09:00)
--- NOTE | 2018-11-29 12:05 | NM ---
NUCLEAR MEDICINE CARDIAC MYOCARDIAL PERFUSION SPECT EJECTION FRACTION STUDY WALL MOTION CINE: DATE: 11/29/2018 HISTORY: 63 year old male with hypertension, dyslipidemia, and diabetes mellitus, presents with chest pain. TECHNIQUE: Number of days: 1 Rest study: Technetium 99m-sestamibi (Cardiolite) dose: 10.2 mCi Pharmacologic stress: Adenosine dose: 56.6 mg Stress study: Technetium 99m-sestamibi (Cardiolite) dose: 28.0 mCi FINDINGS: CARDIAC (MYOCARDIAL PERFUSION) SPECT There are no reversible myocardial perfusion defects. EJECTION FRACTION STUDY Left ventricular EF = 60 % WALL MOTION CINE Normal IMPRESSION: No evidence of reversible ischemia.
[2018-11-29 12:06] VITALS: BP 157/82
[2018-11-29] MEDS ORDERED: Simethicone Chewable 80 MG TAB PO SCH (12:45)
[2018-11-29] MEDS ORDERED: Lidocaine 2% Viscous Solution 10 ML, Aluminum & Magnesium Hydroxide 30 ML SSW SCH (12:45)
[2018-11-29] MEDS ORDERED: Polyethylene Glycol 3350 17 GM Packet PO SCH (12:45)
[2018-11-29] MEDS ORDERED: ADENOSINE 60 MG/20 ML VIAL ONE (13:35)
[2018-11-29] MEDS ORDERED: Rivaroxaban 10 MG TAB PO SCH (17:00)
[2018-11-29] MEDS ORDERED: Simvastatin 20 MG TAB PO SCH (21:00)
[2018-11-29] MEDS ORDERED: OLANZapine 2.5 MG TAB PO SCH (21:00)
--- NOTE | 2018-11-30 03:51 | DIS ---
DATE OF ADMISSION: 11/28/2018 DATE OF DISCHARGE: 11/29/2018 The patient was seen and examined on the date of discharge. CONSULTING PHYSICIAN: None. DISCHARGE DIAGNOSES: 1. Right lower chest pain/upper abdominal pain, resolved. 2. Constipation, resolved. 3. Hypertension. 4. Diabetes mellitus. 5. Hyperlipidemia. HOSPITAL COURSE: Mr. Greco is a 63-year-old man who presented with complaints of right lower chest discomfort and left lower chest/epigastric/upper abdominal discomfort that came on yesterday. The patient states he has been having issues with constipation and has been feeling bloated. He denies having any nausea or vomiting. Denies any severe abdominal pain. He was referred due to concerns for possible ACS. He underwent serial troponins which were all negative. He had a BNP which was normal at 23.8. He also underwent a CT angiogram while in the Emergency Department, which showed no evidence of pulmonary embolism. A stress test was ordered and showed no reversible myocardial perfusion defects with an LVEF of 60%. Given the fact that there was no evidence of reversible ischemia and troponins were negative with no ST changes or T-wave abnormalities noted on the EKG done in the Emergency Department, the patient was felt to unlikely have had any type of heart-related problem. It was determined given the abdominal bloating and constipation that his pain was likely referred. He had improvement with MiraLAX and was able to clear his bowels. He had improvement in abdominal bloating with the use of simethicone. The patient was tolerating oral intake on the day of discharge and without any other complaints. He was therefore medically cleared for discharge home. Of note, a chest x-ray had been done in the Emergency Department as well showing no evidence of acute cardiopulmonary disease. CONDITION: Stable at discharge. ACTIVITY: As tolerated. DIET: Heart-healthy/diabetic diet. DISCHARGE MEDICATIONS: 1. The patient was given a prescription for simethicone as well as MiraLAX to continue at home for constipation as needed. 2. The patient otherwise was advised to resume his regular home medications. FOLLOWUP: The patient was advised to follow up with his primary care physician within 1 week. DISPOSITION: The patient is medically cleared for discharge home on 11/29/2018. Job ID: [id number]
--- NOTE | 2018-12-03 13:14 | EKG ---
Test Reason : CP Blood Pressure : / mmHG Vent. Rate : 072 BPM Atrial Rate : 072 BPM P-R Int : 154 ms QRS Dur : 118 ms QT Int : 398 ms P-R-T Axes : 032 -33 019 degrees QTc Int : 435 ms Normal sinus rhythm Left axis deviation Incomplete right bundle branch block Abnormal ECG No change Confirmed by JOSEF VANCE, BEVERLEY ([id number]), food expeditor HAVEN GREENWOOD ([id number]) on 12/03/2018 1:14:02 PM Referred By: Confirmed By:BEVERLEY BAHENA MD
== END 2018-11-29 16:45 | disposition home or self-care (01) ==
LOC: ERS 14:01 → ERHOLD 16:53 → 2SW 19:52
PROVIDERS: ADMIT Internal Medicine; ATTEND Internal Medicine
DX: R07.9 Chest pain, unspecified (principal); I10 Essential (primary) hypertension; E78.5 Hyperlipidemia, unspecified; E11.9 Type 2 diabetes mellitus without complications; F31.9 Bipolar disorder, unspecified; Z79.01 Long term (current) use of anticoagulants; Z79.899 Other long term (current) drug therapy; Z79.4 Long term (current) use of insulin; Z88.0 Allergy status to penicillin; Z88.2 Allergy status to sulfonamides; Z88.5 Allergy status to narcotic agent
CPT/HCPCS: 36415; 36416; 71045; 71275; 78452; 80048; 80053; 82550; 83690; 83880; 84484; 85025; 93005; 93017; 94760; 96360; A9500; G0378; J0153; J1815; Q9966

== ENCOUNTER 2019-01-30 10:29 | Day surgery (SDC) | payer BC ==
[2019-01-30 12:21] LABS: Calc. Creatinine Clearance 0 mL/min (70-130); Estimated GFR-MDRD Greater than 90
[2019-01-30] MEDS ORDERED: PROPOFOL 200 MG/20 ML VIAL ONE (13:53)
[2019-01-30] MEDS ORDERED: ePHEDrine 50 MG/ML VIAL ONE (13:53)
--- NOTE | 2019-01-30 15:22 | MRI ---
MRI BRAIN WITH AND WITHOUT CONTRAST: HISTORY: Follow up cavernous malformation. COMPARISON: 10/11/2018 FINDINGS: Gradient echo sequence: No evidence of hemorrhage. Redemonstration of multifocal areas of decreased signal, compatible with amyloid angiopathy. Additionally, decreased signal on the right middle cerebellar peduncle and left frontal lobe are compatible with cavernous malformations. No new hypoin tensities in the cerebellum, brainstem and cerebrum are appreciated. Calvarium: Appropriate T1 marrow signal intensity Midline brain parenchyma: Findings compatible with a cavernous malformation of the right cerebellar peduncle. There is associated enhancement. Stable lesion. Cerebrum: No parenchymal mass, mass effect or midline shift. Age-appropriate atrophy. Cortical gra y-white matter differentiation is preserved. No significant T2 or FLAIR white matter hyperintensities. Ventricles: No evidence of hydrocephalus. Sinuses and mastoid air cells: Significant sinus disease of bilateral ethmoid air cells and maxillar y sinuses. Diffusion: Central arterial flow is maintained. Absent restricted diffusion. Postcontrast images: Enhancement corresponding with a known left frontal lobe cavernous malformation as well as enhancement associated with a cavernous malformation in the right middle cerebellar peduncle. No additional areas of enhancement are appreciated. Stable enhancement along the right te mporal calvarium due to hemangioma. Stable diffuse pachymeningeal enhancement. IMPRESSION: 1. No significant change. Redemonstration of GRE (gradient recalled echo) hypointensities compatible with amyloid angiopathy. 2 . Redemonstration of cavernous malformation in the right middle cerebellar peduncle and the left fr ontal lobe cortex. 3. Stable diffuse pachymeningeal enhancement. Transcribed Date/Time: 01/30/2019 5:17 PM
--- NOTE | 2019-01-30 15:33 | MRI ---
MRI THORACIC SPINE WITH AND WITHOUT CONTRAST: HISTORY: Evaluate intradural mass. COMPARISON: 10/11/2018 TECHNIQUE: Thoracic spine MRI is performed with and without intravenous gadolinium administration. Multisequent ial, multiplanar imaging is performed. FINDINGS: Appropriate T1 marrow signal intensity of the thoracic vertebrae. Thoracic spine vertebral body heig ht is maintained. There is no fracture. No significant STIR hyperintensity to suggest vertebral body edema or ligamentous injury. There are bilateral pleural effusions with adjacent lung parenchym al consolidation due to atelectasis, aspiration, or pneumonia. The visualized solid organs are unremarkable. With the exception of the T7 level, the thoracic cord has a normal size and signal intensity. No cord expansion. No cord malacia or cord T2 hyperintensity. No abnormal enhancement. At the T7 level, there is redemonstration of an intramedullary lesion with intrinsic T1 peripheral hypointensity and c entral hyperintensity. T2-weighted images demonstrate a somewhat similar signal intensity. Postcontrast images demonstrate questionable mild adjacent enhancement. The possibility of a caverno us malformation within the thoracic cord is raised, given the presence of other cavernous malformations in the brain parenchyma. At the T10 level, there is redemonstration of an intradural extramedullary lesion along the right asp ect of the central spinal canal. This lesion has not changed in size and currently measures 0.9 cm anterior-posterior by 0.6 cm medial-lateral. Previously this lesion measured 0.6 x 0.9 cm. No appre ciable change. Meningioma is favored. Throughout the thoracic spine there is no evidence of high grade central canal stenosis or high grade neural foraminal narrowing. IMPRESSION: 1. Stable extramedullary, intradural lesion at the T10 level, most compatible with hemangioma. 2. Intramedullary lesion at the T7 level, which may represent a small cavernous malformation. No ap preciable change. No additional/new lesions are appreciated. 3. Bilateral pleural effusions with lung parenchymal changes, which may represent atelectasis, aspir ation or pneumonia. Transcribed Date/Time: 01/30/2019 5:25 PM
== END 2019-01-30 17:40 | disposition home or self-care (01) ==
LOC: MRI 10:29 → EDSTATUS 13:00 → MRI 17:40
PROVIDERS: ATTEND Surgery
DX: G95.89 Other specified diseases of spinal cord (principal); Q28.3 Other malformations of cerebral vessels; J90 Pleural effusion, not elsewhere classified; Z88.0 Allergy status to penicillin; Z88.2 Allergy status to sulfonamides; Z88.5 Allergy status to narcotic agent
CPT/HCPCS: 70553; 72157; 82565

== ENCOUNTER 2019-02-28 15:00 | Inpatient (IN) | payer BC ==
[2019-02-28] MEDS ORDERED: Sodium Chloride 0.9% 100 ML ONE (15:57)
[2019-02-28] MEDS ORDERED: Metoclopramide HCl 10 MG/2 ML VIAL ONE (15:57)
[2019-02-28 16:03] LABS: #Lymphocytes 1.4 thou/uL (1.20-3.40); #Monocytes 0.6 thou/uL (0.11-0.59); #Neutrophils 3.2 thou/uL (1.40-6.50); %Basophils 0.7 % (0.0-1.0); %Eosinophils 0.8 % (0.0-10.0); %Lymphocytes 26.7 % (21.0-51.0); %Monocytes 10.6 % (0.0-10.0); %Neutrophils 61.2 % (42.0-75.0); Hemoglobin 12.9 g/dL (14.0-18.0); Mean Corpuscular HGB CONC 34.1 g/dL (32.0-36.0); Mean Corpuscular Hemoglobin 29.6 pg (27.0-31.0); Mean Corpuscular Volume 86.9 fL (78.0-98.0); Mean Platelet Volume 8.7 fL (7.4-10.4); Platelet Count 171 thou/uL (130-400); RBC Distribution Width 15.6 % (11.5-14.5); Red Blood Cell (RBC) Count 4.36 mill/uL (4.70-6.10); White Blood Cell (WBC) Count 5.2 thou/uL (4.8-10.8)
--- NOTE | 2019-02-28 16:08 | CT ---
CT HEAD WITHOUT IV CONTRAST COMPARISON: 10/24/2018 HISTORY: Dizziness and head pain. Tingling. TECHNIQUE: Axial CT imaging at 5 mm intervals from vertex through skull base without contrast FINDINGS: Again noted is the hyperdense area seen within the left paramedian frontal lobe unchanged from the pr ior exam and shown to represent a cavernous malformation MRI exam on 01/30/2019. MRI also demonstrated multiple additional areas of hemosiderin deposition suggestive of amyloid angiopathy. Th ere is no evidence of an acute infarction, hemorrhage, mass effect, or midline shift. Mild cerebral volume loss is present. The ventricular system is normal in size, shape, and position. There is opacification of the bilateral maxillary antra again present. Osseous structures appear intact. IMPRESSION: 1. No acute intracranial abnormality demonstrated. 2. Left frontal lobe cavernous malformation stable in appearance compared to prior CT exam. 3. Stable complete opacification of each maxillary antrum.
[2019-02-28 16:22] LABS: ALT (SGPT) 46 U/L (8-55); AST (SGOT) 34 U/L (5-34); Albumin 3.7 g/dL (3.4-4.8); Alkaline Phosphatase 71 U/L (40-110); Anion Gap 17 mmol/L (10-20); BUN (Urea Nitrogen) 19 mg/dL (8.4-25.7); Bilirubin, Total 0.4 mg/dL (0.2-1.2); CK (CPK) 128 U/L (30-200); Calc. Creatinine Clearance 0 mL/min (70-130); Calcium 9.1 mg/dL (7.8-10.44); Carbon Dioxide 22 mmol/L (23-31); Chloride 101 mmol/L (98-107); Estimated GFR-MDRD 84; Globulin 3.1 g/dL (2.4-3.5); Glucose 350 mg/dL (80-115); Potassium 4.6 mmol/L (3.5-5.1); Protein, Total 6.8 g/dL (5.8-8.1); Sodium 135 mmol/L (136-145)
[2019-02-28] MEDS ORDERED: Acetaminophen 500 MG TAB ONE (17:33)
[2019-02-28] MEDS ORDERED: Magnesium 2 GM/50 ML BAG (IN WATER) ONE (17:33)
[2019-02-28 19:41] LABS: Troponin I 0.017 ng/mL (< 0.028)
[2019-02-28 20:40] VITALS: BMI 34.7
[2019-02-28 22:34] LABS: Troponin I Less than 0.010 ng/mL (< 0.028)
[2019-03-01] MEDS ORDERED: Acetaminophen 650 MG Suppository PR PRN (01:10)
[2019-03-01] MEDS ORDERED: Ondansetron PF 4 MG/2 ML Vial IVP PRN (01:10)
[2019-03-01] MEDS ORDERED: Ondansetron ODT 4 MG TAB PO PRN (01:10)
[2019-03-01] MEDS ORDERED: ACETAMINOPHEN PO PRN (01:12)
[2019-03-01] MEDS ORDERED: hydrALAZINE 20 MG/ML VIAL SLOW IVP PRN (03:35)
[2019-03-01 04:14] LABS: #Lymphocytes 2.3 thou/uL (1.20-3.40); #Monocytes 0.5 thou/uL (0.11-0.59); #Neutrophils 1.8 thou/uL (1.40-6.50); %Basophils 0.9 % (0.0-1.0); %Lymphocytes 48.5 % (21.0-51.0); %Monocytes 10.7 % (0.0-10.0); Hemoglobin 12.9 g/dL (14.0-18.0); Mean Corpuscular HGB CONC 33.7 g/dL (32.0-36.0); Mean Corpuscular Hemoglobin 29.2 pg (27.0-31.0); Mean Corpuscular Volume 86.8 fL (78.0-98.0); Mean Platelet Volume 8.6 fL (7.4-10.4); Platelet Count 157 thou/uL (130-400); RBC Distribution Width 15.3 % (11.5-14.5); Red Blood Cell (RBC) Count 4.41 mill/uL (4.70-6.10); White Blood Cell (WBC) Count 4.7 thou/uL (4.8-10.8)
[2019-03-01] MEDS ORDERED: Magnesium 2 GM/50 ML 2 GM in Premix Bag 1 BAG IVPB SCH ×2 (04:15→15:00)
[2019-03-01 04:33] LABS: Anion Gap 13 mmol/L (10-20); BUN (Urea Nitrogen) 14 mg/dL (8.4-25.7); Calc. Creatinine Clearance 161 mL/min (70-130); Calcium 9.1 mg/dL (7.8-10.44); Carbon Dioxide 25 mmol/L (23-31); Chloride 102 mmol/L (98-107); Estimated GFR-MDRD Greater than 90; Glucose 184 mg/dL (80-115); Potassium 4.4 mmol/L (3.5-5.1); Sodium 136 mmol/L (136-145)
--- NOTE | 2019-03-01 04:40 | HP ---
PRIMARY CARE PHYSICIAN: Dr. Jazmin Tamayo. CODE STATUS: Full code. TIME OF EVALUATION: 11:40 CHIEF COMPLAINT: Dizziness. HISTORY OF PRESENT ILLNESS: This is a 64 years' old male patient with past medical history of diabetes type 2, hyperlipidemia, high cholesterol, hypertension, came to the hospital after having an episode of dizziness associated with headache with no clear triggers, no alleviating factors. The symptoms started mild and gradually got worse, when severe was 9/10. The patient reported that he had visited Dr. Gamez office today. He was doing fine and then the symptoms started after he went home. REVIEW OF SYSTEMS: CONSTITUTIONAL: No fever, no chills, generalized weakness. RESPIRATORY: No cough, sputum production, or shortness of breath. CARDIOVASCULAR: The patient was feeling lightheaded with some diaphoresis. GASTROINTESTINAL: No nausea, no vomiting, diarrhea, or abdominal pain. CENTRAL NERVOUS SYSTEM: Dizziness, headache. GENITOURINARY: No burning on urination. EXTREMITIES: No leg swelling. All other systems were reviewed and negative except for the findings mentioned above. PAST MEDICAL HISTORY: As mentioned in HPI. PAST SURGICAL HISTORY: Appendectomy, cholecystectomy. PSYCHIATRIC HISTORY: Bipolar disorders. FAMILY HISTORY: Reviewed, noncontributory for current presentation. SOCIAL HISTORY: No alcohol use. No drug use. The patient has no smoking history. KNOWN ALLERGIES: Codeine sulfate, nausea; penicillin, sulfa. REPORTED MEDICATIONS: Levemir, FlexPen, simvastatin, olanzapine, Xarelto, propanolol, Zyprexa, Prilosec, clonazepam, Depakote. PHYSICAL EXAMINATION: VITAL SIGNS: On presentation, blood pressure 156/72 with heart rate 83, respiratory rate was 18, temperature 97.5, oxygen saturation was 95% on room air. Last blood pressure was 151/74. GENERAL: The patient is alert, oriented, in no acute distress. HEENT: Eyes, normal conjunctivae. Moist oral mucosa. Anicteric. No JVD. RESPIRATORY: Bilateral air entry. No rales. No wheezes. Symmetric expansion. CARDIOVASCULAR: Normal rate. Regular rhythm. No murmurs. No gallop. No edema. ABDOMEN: Soft. Normal bowel sounds. MUSCULOSKELETAL: Baseline range of motion and strength. SKIN: Warm and intact. No pallor. No rash. No redness. Capillary refill seems to be intact. NEUROLOGIC: No evidence of any new focal weakness. Cranial nerves seem to be intact. PSYCHIATRIC: The patient is in good mood. No anxiety. Optimal judgment. DIAGNOSTIC DATA: EKG was reviewed. The patient has a complete RBBB and left anterior fascicular block. The patient has a bifascicular block unlikely for this finding could be the cause of the symptoms. LABORATORY DATA: Reviewed. The patient has white count 5.2, hemoglobin 12.9, MCV 86.9, platelet count 171. Chemistry; sodium 135, potassium 4.6, chloride 101, carbon dioxide 22, anion gap 17, BUN 19, creatinine 0.91, GFR 84, glucose 350, calcium 9.1, magnesium 1.4. LFTs were negative. Troponin was negative x3. ASSESSMENT AND PLAN: The patient will be placed in the hospital with the following medical problems; 1. Near-syncope episode. The patient has some diaphoresis and headache, feeling lightheaded. The symptoms are nonspecific and I do not find any clear explanation for the symptom at this point. We will continue to monitor. Could be due to arrhythmia. The patient has a bifascicular block, but this is not likely causing the symptoms. The patient had an echo 1 year ago, so we will repeat echo in the morning. If any abnormality is seen, can call Dr. Gamez, patient's doctor. 2. Patient has uncontrolled diabetes with blood sugar 350 on presentation, it came down to 175. We will reconcile home medications and put the patient's sliding scale for optimal control. 3. Hypomagnesemia, acute. The patient has possible arrhythmia. We will replace electrolytes as needed. 4. Hyperlipidemia. Low-cholesterol diet is advised. Reconcile home medications. 5. Uncontrolled hypertension with systolic blood pressure 156 on presentation. Last one during my examination was 151. Reconcile home medications, adjust treatment as needed. Job ID: [id number] MTDD
[2019-03-01] MEDS: Lisinopril 2.5 MG TAB PO SCH (07:59)
[2019-03-01] MEDS: Fish Oil 1,000 MG CAP PO SCH ×2 (07:59→21:00)
[2019-03-01] MEDS: Propranolol HCl LA 80 MG CAP PO SCH (07:59)
[2019-03-01] MEDS: Tamsulosin HCl 0.4 MG CAP PO SCH (08:00)
[2019-03-01] MEDS: Acetaminophen 325 MG TAB PO PRN (08:00)
[2019-03-01] MEDS ORDERED: Enoxaparin Sodium 40 MG/0.4 ML SYRINGE SC SCH (09:00)
[2019-03-01] MEDS ORDERED: CLONAZEPAM SL SCH (09:00)
[2019-03-01] MEDS ORDERED: Dextrose 50% Abboject 50 ML SYRINGE SLOW IVP PRN (14:53)
[2019-03-01] MEDS ORDERED: Dextrose 5% in Water 1,000 ML IV PRN (14:53)
[2019-03-01] MEDS: Rivaroxaban 10 MG TAB PO SCH (16:32)
[2019-03-01] MEDS: OLANZapine 2.5 MG TAB PO SCH (21:00)
[2019-03-01] MEDS: Atorvastatin Calcium 10 MG TAB PO SCH (21:00)
[2019-03-01] MEDS: clonazePAM 0.5 MG TAB PO SCH (21:01)
[2019-03-01] MEDS: Insulin Glargine 70 UNITS in Pre-Filled Syringe 1 EACH SC SCH (21:08)
--- NOTE | 2019-03-01 22:59 | PRG ---
DATE OF SERVICE: 03/01/2019 SUBJECTIVE: A 64-year-old male, with diabetes mellitus type 2, hypertension, hyperlipidemia, presented to the hospital with persistent dizziness along with headache. He also has difficulty ambulating and balance problem. He denies any chest discomfort, shortness of breath, palpitations, or focal neurologic deficit. He denies any tinnitus or vertigo. REVIEW OF SYSTEMS: As discussed above. PHYSICAL EXAMINATION: VITAL SIGNS: Temperature 97.9, respirations of 16, pulse rate of 70, blood pressure of 156/77, O2 saturation 93% on room air. GENERAL: A 64-year-old male, in no apparent distress at rest. HEENT: Head, atraumatic and normocephalic. Sclerae anicteric. No oral lesion. Pupils were equally reacting to light. No nystagmus. LUNGS: Clear to auscultation bilaterally. No wheezing, rales, rhonchi. HEART: S1, S2 present. Regular rate and rhythm. No rubs or gallops. ABDOMEN: Soft, nontender. Bowel sounds present. No rebound or guarding. EXTREMITIES: No edema or calf tenderness. NEUROLOGY: Cranial nerves 2 through 12 are normal on examination. Power was 5/5 in all extremities. Sfqofa-nm-infm test was normal bilaterally. LABORATORY FINDINGS: WBC 4.7 with hemoglobin 12.9, hematocrit 38.3, platelet of 157. Chemistry showed sodium 136, potassium 4.4, chloride 102, bicarb 25, BUN 14, creatinine 0.72, magnesium 1.4, folic acid and vitamin B12 in normal range. Sodium on admission was 135. Telemetry monitoring by my review showed sinus rhythm. CT scan of the brain by my review was negative for acute findings. It showed left frontal lobe cavernous malformation, stable in appearance. MRI of the brain last month was negative for acute CVA. IMPRESSION: 1. Persistent dizziness with headache/near-syncope of unclear etiology. 2. History of recent fall. 3. Diabetes mellitus type 2. 4. Hypomagnesemia. 5. Hyperlipidemia. 6. Hypertension. 7. Gastroesophageal reflux disease. 8. Benign prostatic hypertrophy. 9. Obesity with a BMI of 34.7. 10. 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 11. History of deep vein thrombosis and pulmonary embolism, on anticoagulation. PLAN: The patient will be monitored on the telemetry unit. We will consult Physical Therapy. We will start him on insulin sliding scale. Continue Lantus at a lower dose. We will check orthostatic vitals. Replace magnesium. Recheck labs in a.m. Exact etiology of dizziness appears to be unclear. The patient recently had a MRI which was negative for acute CVA. His neurological examination is nonfocal. Job ID: [id number]
[2019-03-02] MEDS: clonazePAM 0.5 MG TAB PO SCH ×2 (09:57→21:08)
[2019-03-02] MEDS: Fish Oil 1,000 MG CAP PO SCH ×2 (10:00→21:07)
[2019-03-02] MEDS: Insulin Glargine 70 UNITS in Pre-Filled Syringe 1 EACH SC SCH ×2 (10:00→21:04)
[2019-03-02] MEDS: Lisinopril 2.5 MG TAB PO SCH (10:00)
[2019-03-02] MEDS: Tamsulosin HCl 0.4 MG CAP PO SCH (10:00)
[2019-03-02] MEDS: Propranolol HCl LA 80 MG CAP PO SCH (10:00)
[2019-03-02] MEDS: Acetaminophen 325 MG TAB PO PRN (11:53)
--- NOTE | 2019-03-02 12:46 | PDOC.HOSPP ---
- Subjective Encounter Date: 03/02/19 Encounter Time: 12:44 Subjective: Patient seen and examined for Dizziness. No improvement in his dizziness/ headache. No CP/SOB/focal deficits . No other complaints. No overnight events - Objective Vital Signs & Weight: Vital Signs (12 hours) Temp Pulse Pulse Pulse Resp BP BP 03/02/19 11:26 77 81 133/76 03/02/19 11:17 97.9 F 76 16 03/02/19 10:00 67 134/66 03/02/19 07:34 97.3 F L 67 20 03/02/19 03:17 97.8 F 66 18 137/69 BP BP BP BP BP Pulse Ox 03/02/19 11:26 137/75 03/02/19 11:17 131/75 93 L 03/02/19 10:00 03/02/19 07:34 132/70 124/68 134/66 93 L 03/02/19 03:17 94 L Weight Weight 242 lb I&O: 03/01/19 03/02/19 03/03/19 06:59 06:59 06:59 Intake Total 520 2200 240 Balance 520 2200 240 Result Diagrams: 03/01/19 03:55 03/02/19 13:01 Additional Labs: Accuchecks 03/02/19 03/02/19 03/02/19 12:29 06:48 03:18 POC Glucose 197 H 183 H 173 H 03/01/19 03/01/19 21:11 16:54 POC Glucose 210 H 176 H EKG Reviewed by me: Yes (Tele SR) Hospitalist ROS - Review of Systems Respiratory: denies: cough, dry, shortness of breath, hemoptysis, SOB with excertion, pleuritic pain, sputum, wheezing, other Cardiovascular: denies: chest pain, palpitations, orthopnea, paroxysmal noc. dyspnea, edema, light headedness, other Gastrointestinal: denies: nausea, vomiting, abdominal pain, diarrhea, constipation, melena, hematochezia, other - Medication Medications: Active Medications Generic Name Dose Route Start Last Admin Trade Name Freq PRN Reason Stop Dose Admin Acetaminophen 650 mg 03/01/19 01:10 03/02/19 11:53 Tylenol PO 650 mg Q4H PRN Administration Headache/Fever/Mild Pain (1-3) Atorvastatin Calcium 10 mg 03/01/19 21:00 03/01/19 21:00 Lipitor PO 10 mg HS NAHUM Administration Clonazepam 0.25 mg 03/01/19 21:00 03/02/19 09:57 Klonopin PO Not Given BID NAHUM Divalproex Sodium 1,000 mg 03/01/19 21:00 03/01/19 21:00 Depakote Er PO 1,000 mg HS NAHUM Administration Fish Oil 2,000 mg 03/01/19 09:00 03/02/19 10:00 Fish Oil PO 2,000 mg BID NAHUM Administration Hydralazine HCl 10 mg 03/01/19 03:35 03/01/19 03:56 Apresoline SLOW IVP 10 mg Q4H PRN Administration SBP > 180 Insulin Glargine 70 units/ 0.7 mls @ 0 mls/hr 03/01/19 21:00 03/01/19 21:08 Miscellaneous Medication SC 0.7 mls HS NAHUM Administration Insulin Glargine 70 units/ 0.7 mls @ 0 mls/hr 03/02/19 09:00 03/02/19 10:00 Miscellaneous Medication SC 0.7 mls QAM NAHUM Administration Lisinopril 2.5 mg 03/01/19 09:00 03/02/19 10:00 Zestril PO 2.5 mg DAILY NAHUM Administration Olanzapine 2.5 mg 03/01/19 21:00 03/01/19 21:00 Zyprexa PO 2.5 mg HS NAHUM Administration Pantoprazole Sodium 40 mg 03/01/19 09:00 03/02/19 10:00 Protonix PO 40 mg QAM NAHUM Administration Propranolol HCl 80 mg 03/01/19 09:00 03/02/19 10:00 Inderal La PO 80 mg QAM NAHUM Administration Rivaroxaban 20 mg 03/01/19 17:00 03/01/19 16:32 Xarelto PO 20 mg 1700 ANHUM Administration Tamsulosin HCl 0.4 mg 03/01/19 09:00 03/02/19 10:00 Flomax PO 0.4 mg QAM NAHUM Administration - Exam General Appearance: NAD Neck: supple, no JVD Heart: RRR, no gallops Respiratory: CTAB, no wheezes, no rales, no ronchi Gastrointestinal: soft, non-tender, non-distended, normal bowel sounds Neurological: cranial nerve grossly intact, normal sensation to touch, no focal deficits, no new deficit Neurological - other findings: some numness over the left forehead Psychiatric: normal affect, A&O x 3 Hosp A/P - Plan IMPRESSION: 1. Persistent dizziness with headache/near-syncope of unclear etiology. r/o Cerebellar CVA 2. History of mechanical fall 2 weeks ago. 3. Diabetes mellitus type 2. 4. Hypomagnesemia. 5. Hyperlipidemia. 6. Hypertension. 7. GERD. 8. Benign prostatic hypertrophy. 9. Obesity with a BMI of 34.7. 10. 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 11. History of deep vein thrombosis and pulmonary embolism, on anticoagulation. PLAN: Orthostatic vitals OK MRI brain to r/o Cerebellar CVA Consult Neurology based on MRI report Consult Anesthesia due to extreme claustrophobia Await labs Cont Sliding scale Cont other meds as above
[2019-03-02 13:35] LABS: Anion Gap 15 mmol/L (10-20); BUN (Urea Nitrogen) 16 mg/dL (8.4-25.7); Calc. Creatinine Clearance 140 mL/min (70-130); Calcium 10.2 mg/dL (7.8-10.44); Carbon Dioxide 23 mmol/L (23-31); Chloride 100 mmol/L (98-107); Estimated GFR-MDRD Greater than 90; Glucose 232 mg/dL (80-115); Magnesium 1.6 mg/dL (1.6-2.6); Sodium 133 mmol/L (136-145)
[2019-03-02] MEDS: Rivaroxaban 10 MG TAB PO SCH (18:25)
[2019-03-02] MEDS: Insulin Regular 300 UNITS/3 ML VIAL SC PRN ×2 (18:34→21:05)
[2019-03-02] MEDS: Atorvastatin Calcium 10 MG TAB PO SCH (21:07)
[2019-03-02] MEDS: OLANZapine 2.5 MG TAB PO SCH (21:08)
[2019-03-03] MEDS: Insulin Regular 300 UNITS/3 ML VIAL SC PRN ×4 (05:53→21:22)
--- NOTE | 2019-03-03 10:06 | MRI ---
MRI BRAIN NONCONTRAST: DATE: 03/03/2019 HISTORY: 64-year-old male with persistent dizziness and headache. Rule out CVA. TECHNIQUE: Patient is reportedly very claustrophobic. The MRI was reportedly performed with anesthesiology servi ce. COMPARISON: 01/30/2019 FINDINGS: Most of the images are severely degraded by patient motion. Other than that, no significant interval change is detected since the prior MRI. No restricted diffusion to indicate any acute infarction. No mass effect, midline shift, obstructive hydrocephalus, acute intra-axial hemorrhage, or extra-axia l fluid collection. 1.5 x 0.5 cm cavernous malformation at left paramedian upper frontal lobe. 0.5 x 0.6 cm cavernous malformation in right cerebral peduncle of midbrain. Large number of punctate microhemorrhages in the cerebrum, brainstem, and cerebellum, consistent with amyloid angiopathy. Severe opacification of bilateral maxillary sinuses. IMPRESSION: 1) Limited study because of severe motion artifact. 2) no acute findings. No acute cerebral infarction. 3) amyloid angiopathy. 4) cavernous malformations: Left frontal lobe and right cerebral peduncle of midbrain. 5) severe opacification of bilateral maxillary sinuses.
[2019-03-03 12:11] LABS: Anion Gap 17 mmol/L (10-20); BUN (Urea Nitrogen) 17 mg/dL (8.4-25.7); Calc. Creatinine Clearance 133 mL/min (70-130); Calcium 9.6 mg/dL (7.8-10.44); Carbon Dioxide 25 mmol/L (23-31); Chloride 97 mmol/L (98-107); Estimated GFR-MDRD 88; Glucose 217 mg/dL (80-115); Magnesium 1.5 mg/dL (1.6-2.6); Potassium 5.6 mmol/L (3.5-5.1); Sodium 133 mmol/L (136-145)
[2019-03-03] MEDS: Fish Oil 1,000 MG CAP PO SCH ×2 (12:35→21:23)
[2019-03-03] MEDS: clonazePAM 0.5 MG TAB PO SCH ×2 (12:36→21:24)
[2019-03-03] MEDS: Aspirin 81 mg Enteric Coated Tablet PO SCH (12:36)
[2019-03-03] MEDS: Tamsulosin HCl 0.4 MG CAP PO SCH (12:36)
[2019-03-03] MEDS: Propranolol HCl LA 80 MG CAP PO SCH (12:36)
[2019-03-03] MEDS: Lisinopril 2.5 MG TAB PO SCH (12:36)
[2019-03-03] MEDS: Insulin Glargine 70 UNITS in Pre-Filled Syringe 1 EACH SC SCH ×2 (12:36→21:22)
--- NOTE | 2019-03-03 14:16 | PDOC.HOSPP ---
- Subjective Encounter Date: 03/03/19 Encounter Time: 14:15 Subjective: 64 y/o male with DM and HTN admitted with dizziness and headache. Had MRI earlier today. Still having dizziness. - Objective Vital Signs & Weight: Vital Signs (12 hours) Temp Pulse Resp BP Pulse Ox 03/03/19 12:36 71 03/03/19 11:37 71 18 123/68 95 03/03/19 10:10 97.5 F L 72 15 116/55 L 99 03/03/19 08:03 97.4 F L 69 18 137/72 94 L Weight Weight 242 lb I&O: 03/02/19 03/03/19 03/04/19 06:59 06:59 06:59 Intake Total 2200 1320 Balance 2200 1320 Result Diagrams: 03/01/19 03:55 03/03/19 11:29 Additional Labs: Accuchecks 03/03/19 03/03/19 03/03/19 10:54 05:54 02:03 POC Glucose 230 H 187 H 220 H 03/02/19 03/02/19 21:06 18:31 POC Glucose 234 H 370 H Hospitalist ROS - Medication Medications: Active Medications Generic Name Dose Route Start Last Admin Trade Name Freq PRN Reason Stop Dose Admin Acetaminophen 650 mg 03/01/19 01:10 03/02/19 11:53 Tylenol PO 650 mg Q4H PRN Administration Headache/Fever/Mild Pain (1-3) Aspirin 81 mg 03/03/19 09:00 03/03/19 12:36 Ecotrin PO 81 mg DAILY NAHUM Administration Atorvastatin Calcium 10 mg 03/01/19 21:00 03/02/19 21:07 Lipitor PO 10 mg HS NAHUM Administration Clonazepam 0.25 mg 03/01/19 21:00 03/03/19 12:36 Klonopin PO Not Given BID NAHUM Divalproex Sodium 1,000 mg 03/01/19 21:00 03/02/19 21:07 Depakote Er PO 1,000 mg HS NAHUM Administration Fish Oil 2,000 mg 03/01/19 09:00 03/03/19 12:35 Fish Oil PO 2,000 mg BID NAHUM Administration Hydralazine HCl 10 mg 03/01/19 03:35 03/01/19 03:56 Apresoline SLOW IVP 10 mg Q4H PRN Administration SBP > 180 Insulin Glargine 70 units/ 0.7 mls @ 0 mls/hr 03/01/19 21:00 03/02/19 21:04 Miscellaneous Medication SC 0.7 mls HS NAHUM Administration Insulin Glargine 70 units/ 0.7 mls @ 0 mls/hr 03/02/19 09:00 03/03/19 12:36 Miscellaneous Medication SC 0.7 mls QAM NAHUM Administration Insulin Human Regular 0 units 03/01/19 14:53 03/03/19 12:35 Humulin R SC 6 unit .AGGRESSIVE SLIDING PRN Administration Aggressive Correctional Scale Insulin Human Regular 0 units 03/01/19 14:53 03/02/19 21:05 Humulin R SC 2 unit .BEDTIME SLIDING SC PRN Administration Bedtime Correctional Scale Lisinopril 2.5 mg 03/01/19 09:00 03/03/19 12:36 Zestril PO 2.5 mg DAILY NAHUM Administration Olanzapine 2.5 mg 03/01/19 21:00 03/02/19 21:08 Zyprexa PO 2.5 mg HS NAHUM Administration Pantoprazole Sodium 40 mg 03/01/19 09:00 03/03/19 12:35 Protonix PO 40 mg QAM NAHUM Administration Propranolol HCl 80 mg 03/01/19 09:00 03/03/19 12:36 Inderal La PO 80 mg QAM NAHUM Administration Rivaroxaban 20 mg 03/01/19 17:00 03/02/19 18:25 Xarelto PO 20 mg 1700 NAHUM Administration Tamsulosin HCl 0.4 mg 03/01/19 09:00 03/03/19 12:36 Flomax PO 0.4 mg QAM NAHUM Administration - Exam General Appearance: awake alert Eye: anicteric sclera ENT: normocephalic atraumatic Neck: symmetric, no JVD Heart: RRR, no murmur Respiratory: no wheezes, no rales, no ronchi, normal chest expansion Gastrointestinal: soft, non-tender, non-distended, normal bowel sounds Extremities: no edema Neurological: cranial nerve grossly intact, no focal deficits Psychiatric: normal affect, A&O x 3 Hosp A/P (1) Dizziness of unknown etiology Code(s): R42 - DIZZINESS AND GIDDINESS Status: Acute (2) Headache Code(s): R51 - HEADACHE Status: Acute (3) Bipolar disorder Code(s): F31.9 - BIPOLAR DISORDER, UNSPECIFIED Status: Chronic (4) DM2 (diabetes mellitus, type 2) Status: Chronic (5) HTN (hypertension) Code(s): I10 - ESSENTIAL (PRIMARY) HYPERTENSION Status: Chronic (6) Hypomagnesemia Code(s): E83.42 - HYPOMAGNESEMIA Status: Acute - Plan Start meclizine Continue PT. Await Echo. Continue other medications
[2019-03-03] MEDS ORDERED: Magnesium Sulfate 4 GM in Sodium Chloride 0.9% 250 ML 250 ML IVPB SCH (14:30)
[2019-03-03] MEDS: Meclizine HCl 25 MG TAB PO SCH ×2 (15:33→22:57)
[2019-03-03] MEDS: Rivaroxaban 10 MG TAB PO SCH (17:50)
[2019-03-03] MEDS: Atorvastatin Calcium 10 MG TAB PO SCH (21:23)
[2019-03-03] MEDS: OLANZapine 2.5 MG TAB PO SCH (21:23)
[2019-03-04] MEDS: Insulin Regular 300 UNITS/3 ML VIAL SC PRN ×3 (02:08→11:24)
[2019-03-04 04:42] LABS: Anion Gap 15 mmol/L (10-20); BUN (Urea Nitrogen) 24 mg/dL (8.4-25.7); Calc. Creatinine Clearance 140 mL/min (70-130); Calcium 9.2 mg/dL (7.8-10.44); Carbon Dioxide 23 mmol/L (23-31); Chloride 96 mmol/L (98-107); Estimated GFR-MDRD Greater than 90; Glucose 223 mg/dL (80-115); Magnesium 1.8 mg/dL (1.6-2.6); Potassium 4.4 mmol/L (3.5-5.1); Sodium 130 mmol/L (136-145)
[2019-03-04] MEDS: Meclizine HCl 25 MG TAB PO SCH ×2 (06:12→14:12)
[2019-03-04] MEDS: Fish Oil 1,000 MG CAP PO SCH (08:59)
[2019-03-04] MEDS: clonazePAM 0.5 MG TAB PO SCH (08:59)
[2019-03-04] MEDS: Aspirin 81 mg Enteric Coated Tablet PO SCH (08:59)
[2019-03-04] MEDS: Lisinopril 2.5 MG TAB PO SCH (09:00)
[2019-03-04] MEDS: Insulin Glargine 70 UNITS in Pre-Filled Syringe 1 EACH SC SCH (09:00)
[2019-03-04] MEDS: Propranolol HCl LA 80 MG CAP PO SCH (09:01)
[2019-03-04] MEDS: Tamsulosin HCl 0.4 MG CAP PO SCH (09:01)
[2019-03-04 15:19] VITALS: BP 128/62; TEMP 98.1
[2019-03-04] MEDS: Rivaroxaban 10 MG TAB PO SCH (16:55)
== END 2019-03-04 18:34 | disposition home or self-care (01) | DRG 149 ==
LOC: ERS 15:00 → 2SW 19:47 → OBSVTOIN 19:47
PROVIDERS: ADMIT Internal Medicine; ATTEND Internal Medicine
DX: R42 Dizziness and giddiness (principal); I45.2 Bifascicular block; E11.9 Type 2 diabetes mellitus without complications; E78.5 Hyperlipidemia, unspecified; I10 Essential (primary) hypertension; F31.9 Bipolar disorder, unspecified; E83.42 Hypomagnesemia; K21.9 Gastro-esophageal reflux disease without esophagitis; N40.0 Benign prostatic hyperplasia without lower urinary tract symptoms; E66.9 Obesity, unspecified; Z90.49 Acquired absence of other specified parts of digestive tract; Z88.0 Allergy status to penicillin; Z88.2 Allergy status to sulfonamides; Z88.5 Allergy status to narcotic agent; Z68.34 Body mass index [BMI] 34.0-34.9, adult; Z86.718 Personal history of other venous thrombosis and embolism; Z86.711 Personal history of pulmonary embolism
CPT/HCPCS: 36415; 36416; 70450; 70551; 80048; 80053; 82140; 82550; 82607; 82746; 83735; 83930; 83935; 84484; 85025; 85652; 86140; 93005; 93306; 94760; 96365; 96366; 96368; J0360; J1815; J2765; J3475; J3490; J7050; J8597

== ENCOUNTER 2019-03-16 12:08 | Emergency (ER) | payer BC ==
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
== END 2019-03-16 13:38 | disposition home or self-care (01) ==
LOC: ERS 12:08
DX: S20.219A Contusion of unspecified front wall of thorax, initial encounter (principal); M54.5 Low back pain; E11.9 Type 2 diabetes mellitus without complications; E78.5 Hyperlipidemia, unspecified; E78.2 Mixed hyperlipidemia; I10 Essential (primary) hypertension; F31.9 Bipolar disorder, unspecified; Z79.899 Other long term (current) drug therapy; Z86.718 Personal history of other venous thrombosis and embolism; Z86.711 Personal history of pulmonary embolism; Z79.4 Long term (current) use of insulin; V89.2XXA Person injured in unspecified motor-vehicle accident, traffic, initial encounter
CPT/HCPCS: 71045; 72131

== ENCOUNTER 2019-03-17 17:21 | Emergency (ER) | payer BC ==
[2019-03-17 18:07] LABS: #Lymphocytes 0.5 thou/uL (1.20-3.40); #Monocytes 0.4 thou/uL (0.11-0.59); #Neutrophils 3.9 thou/uL (1.40-6.50); %Basophils 0.6 % (0.0-1.0); %Eosinophils 0.1 % (0.0-10.0); %Lymphocytes 9.4 % (21.0-51.0); %Monocytes 8.3 % (0.0-10.0); %Neutrophils 81.6 % (42.0-75.0); Hemoglobin 14.7 g/dL (14.0-18.0); Mean Corpuscular HGB CONC 32.5 g/dL (32.0-36.0); Mean Corpuscular Hemoglobin 28.8 pg (27.0-31.0); Mean Corpuscular Volume 88.6 fL (78.0-98.0); Mean Platelet Volume 8.3 fL (7.4-10.4); Platelet Count 163 thou/uL (130-400); RBC Distribution Width 15.5 % (11.5-14.5); Red Blood Cell (RBC) Count 5.09 mill/uL (4.70-6.10); White Blood Cell (WBC) Count 4.8 thou/uL (4.8-10.8)
[2019-03-17 18:41] LABS: ALT (SGPT) 52 U/L (8-55); AST (SGOT) 54 U/L (5-34); Albumin 3.9 g/dL (3.4-4.8); Alkaline Phosphatase 67 U/L (40-110); Anion Gap 15 mmol/L (10-20); BUN (Urea Nitrogen) 25 mg/dL (8.4-25.7); Calc. Creatinine Clearance 0 mL/min (70-130); Calcium 8.7 mg/dL (7.8-10.44); Carbon Dioxide 23 mmol/L (23-31); Chloride 99 mmol/L (98-107); Estimated GFR-MDRD 90; Globulin 3.2 g/dL (2.4-3.5); Glucose 256 mg/dL (80-115); Magnesium 1.1 mg/dL (1.6-2.6); Potassium 4.3 mmol/L (3.5-5.1); Protein, Total 7.1 g/dL (5.8-8.1); Sodium 133 mmol/L (136-145)
[2019-03-17 19:17] LABS: INR-International Normal Ratio 1.6; PTT 29.5 SEC (22.9-36.1); Prothrombin Time 18.9 SEC (12.0-14.7)
--- NOTE | 2019-03-17 19:53 | RAD ---
CHEST TWO VIEWS: 03/17/19 COMPARISON: 03/16/19, 05/25/18. HISTORY: Chest pain. FINDINGS: Normal cardiac silhouette. Lungs and pleural spaces are clear. Chronic changes are noted. No masses o r consolidation. No pneumothorax or acute osseous abnormalities. IMPRESSION: Chronic changes. No acute cardiopulmonary process. POS: [facility]
[2019-03-17] MEDS ORDERED: Ondansetron ODT 4 MG TAB ONE (20:14)
[2019-03-17 20:39] LABS: Bacteria/HPF None Seen HPF (None Seen); Bilirubin Negative (Negative); Blood, Urine Negative (Negative); Clarity Clear (Clear); Glucose, Urine (Dipstick) 500 mg/dL (Negative); Leukocyte Negative Leu/uL (Negative); Nitrite Negative (Negative); Protein, Urine (Dipstick) 30 mg/dL (Neg-Trace); RBC/HPF 0-3 HPF (0-3); Squamous Epithelial 0-3 HPF (0-3); Urobilinogen Normal mg/dL (Less than 2); WBC/HPF 0-3 HPF (0-3)
[2019-03-17] MEDS ORDERED: Ketorolac Tromethamine 30 MG/ML VIAL ONE (21:16)
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
== END 2019-03-17 22:38 | disposition home or self-care (01) ==
LOC: ERS 17:21
DX: R59.0 Localized enlarged lymph nodes (principal); K52.9 Noninfective gastroenteritis and colitis, unspecified; F31.9 Bipolar disorder, unspecified; E11.9 Type 2 diabetes mellitus without complications; E78.5 Hyperlipidemia, unspecified; E78.1 Pure hyperglyceridemia; I10 Essential (primary) hypertension; Z86.718 Personal history of other venous thrombosis and embolism; Z79.899 Other long term (current) drug therapy; Z79.01 Long term (current) use of anticoagulants; Z79.4 Long term (current) use of insulin; V89.2XXA Person injured in unspecified motor-vehicle accident, traffic, initial encounter
CPT/HCPCS: 36415; 71046; 74177; 80053; 81003; 81015; 83735; 84484; 85025; 85610; 85730; 87040; 87086; 87804; 93005; 96361; 96374; J1885; Q0162; Q9966

== ENCOUNTER 2019-07-18 14:15 | Outpatient (CLI) | payer BC ==
--- NOTE | 2019-07-18 14:48 | RAD ---
XR Knee Lt 2 View: 07/18/2019 12:00 AM CLINICAL INDICATION: Fall with left knee pain COMPARISON: None. FINDINGS: Bones: No acute fracture or subluxation demonstrated. Joints: Moderate osteoarthrosis of the left knee predominantly affecting the medial femorotibial and patellofemoral compartments.. Soft Tissue: There is moderate soft tissue swelling overlying the anterior aspect of the left knee.. IMPRESSION: No acute fracture or subluxation demonstrated. Moderate left knee osteoarthrosis..
--- NOTE | 2019-07-18 14:49 | RAD ---
XR Knee Rt 2 View: 07/18/2019 12:00 AM CLINICAL INDICATION: Fall COMPARISON: None. FINDINGS: Bones: No acute fracture or subluxation demonstrated. Joints: There are mild marginal osteophytes affecting the major forms of the right knee but most betty rely affecting the medial femorotibial and patellofemoral compartments. There is a 1 cm intra-articular body seen within the posterior medial aspect of the right knee likely within a poplit eal cyst.. Soft Tissue: There is soft tissue swelling involving the anterior aspect of the right knee. IMPRESSION: No acute osseous abnormality..
--- NOTE | 2019-07-18 14:53 | RAD ---
EXAM: XR Cerv Sp Ap Lat STANDARD DATE: 07/18/2019 12:00 AM INDICATION: Fall with neck pain COMPARISON: None. FINDING: The jaw and patient positioning limits evaluation of the C2 and C3 vertebral levels on the lateral projection. The cervical spine on the lateral projection is evaluated up to the C7-T1 junction. There is moderate disc degenerative disease at C6-7. There is moderate multilevel facet ost eoarthritic change. No overt acute osseous abnormality is evident. Lung apices are clear. IMPRESSION:Limitations in exam. If there remains clinical suspicion for cervical spinal injury, a ded icated CT of the cervical spine is recommended for additional characterization. There is limited visualization of the upper cervical spine, specifically C2 and C3 on the lateral projection. Moderate cervical spondylosis.
== END 2019-07-18 14:16 | disposition home or self-care (01) ==
LOC: BICRAD 14:15
PROVIDERS: ATTEND Internal Medicine
DX: M54.2 Cervicalgia (principal); M25.562 Pain in left knee; M17.12 Unilateral primary osteoarthritis, left knee; W17.89XA Other fall from one level to another, initial encounter
CPT/HCPCS: 72040

== ENCOUNTER 2019-07-28 09:57 | Day surgery (SDC) | payer BC ==
[2019-07-27 10:36] VITALS: BMI 32.4
[2019-07-28 11:03] LABS: Calc. Creatinine Clearance 141 mL/min (70-130); Estimated GFR-MDRD Greater than 90
[2019-07-28] MEDS ORDERED: Fentanyl 100 MCG/2 ML VIAL ONE (12:26)
[2019-07-28] MEDS ORDERED: Midazolam HCl 2 mg/2 ml Vial ONE (12:26)
[2019-07-28] MEDS ORDERED: PROPOFOL 40 ML ONE (12:29)
[2019-07-28] MEDS ORDERED: Ketamine 50 MG/ML (10ML VIAL) ONE (12:31)
[2019-07-28] MEDS ORDERED: Lidocaine 1% PF 5 ML VIAL ONE (13:00)
[2019-07-28] MEDS ORDERED: PROPOFOL 200 MG/20 ML VIAL ONE (13:00)
[2019-07-28] MEDS ORDERED: Ondansetron PF 4 MG/2 ML Vial ONE (13:00)
[2019-07-28] MEDS ORDERED: Magnevist 469MG/ML 20 ML VIAL ONE ×2 (14:00)
--- NOTE | 2019-07-28 14:47 | MRI ---
MRI BRAIN WITH AND WITHOUT CONTRAST: DATE: 07/28/2019 HISTORY: 64-year-old male with cerebral hemorrhage ICD-10: I 61.9 COMPARISON: 03/03/2019 TECHNIQUE: Multiplanar, multisequence MRI of the brain performed pre- and post-IV injection of gadolinium based contrast agent. FINDINGS: 1.5 x 0.5 cm cavernoma at the left paramedian upper frontal lobe. 0.5 x 0.6 cm cavernoma in right cerebral peduncle of midbrain. Very large number of punctate, remote microhemorrhages in the cerebrum, brainstem, and cerebellum. Severe opacification of bilateral maxillary sinuses. No evidence of new hemorrhage, mass effect, midline shift, restricted diffusion, abnormal enhancement , new mass, or extra-axial fluid collection. Ventricles are normal in size and configuration. Chronic ischemic white matter changes are minimal. No interval change overall. IMPRESSION: 1. No acute findings. 2. 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 3. Very large number of tiny remote microhemorrhages throughout the cerebrum, cerebellum, and brainst em. These could represent cerebral amyloid angiopathy, numerous additional cavernous malformations, or perhaps accommodation of both. 4. No interval change.
--- NOTE | 2019-07-28 14:48 | MRI ---
MRI OF THORACIC SPINE WITH AND WITHOUT CONTRAST: INDICATION: Followup thoracic regions. COMPARISON: Comparison is made to prior MRI of thoracic spine dated 01/30/2019. FINDINGS: Motion artifact degrades many of the sequences. The axial sequences are especially degraded. The thoracic vertebrae maintain height and alignment. The disk spaces are preserved. Mild degenerat randolph spurring from the thoracic spine. The thoracic vertebrae showed no significant interval change. No evidence of disk bulge or protrusion at any of the thoracic levels. There continues to be a small focal intramedullary lesion at C7 which has been described previously. This is best appreciated in the sagittal plane today. Axial images are significantly degraded today . This small intramedullary lesion shows no significant change from the prior exam. Cavernoma is ag ain suspected. The extramedullary intradural lesion at the T10 level is again seen. This lesion again measures 8-9 mm and is unchanged. Thoracic cord signal is otherwise normal and unchanged. IMPRESSION: 1. Small intramedullary lesion at stable. 2. The extramedullary intradural lesion at T10 is again seen and is stable. 3. Thoracic MRI is otherwise unremarkable and unchanged. POS: [facility]
== END 2019-07-28 15:35 | disposition home or self-care (01) ==
LOC: SDC/OP 09:57
PROVIDERS: ATTEND Surgery
DX: I61.9 Nontraumatic intracerebral hemorrhage, unspecified (principal); G93.89 Other specified disorders of brain; G95.89 Other specified diseases of spinal cord; Z79.01 Long term (current) use of anticoagulants; Z79.4 Long term (current) use of insulin; Z79.899 Other long term (current) drug therapy; Z88.0 Allergy status to penicillin; Z88.2 Allergy status to sulfonamides; Z88.5 Allergy status to narcotic agent
CPT/HCPCS: 36415; 36416; 70553; 72157; 82565; 93005; 93010; A9579; J2001; J2250; J2405; J2704; J3010

== ENCOUNTER 2020-03-14 12:25 | Outpatient (CLI) | payer MEDICARE, OTHER ==
--- NOTE | 2020-03-14 13:31 | ULT ---
Hepatic sonogram with duplex evaluation HISTORY: Enlarged liver. Abdomen pain. FINDINGS: Gallbladder is surgically absent. Common duct is 0.5 cm. Liver is diffusely echogenic and measures up to 22.9 cm. No focal mass. No free fluid. Spleen measures up to 12.0 cm. Good color and spectral Doppler flow within the hepatic and splenic arteries. Portal venous flow is t owards the liver. Hepatic venous flow is towards the IVC. IMPRESSION : No findings of portal venous hypertension. Hepatomegaly. Hepato-steatosis. Status post cholecystectomy. No evidence of biliary obstruction.
== END 2020-03-14 12:26 | disposition home or self-care (01) ==
LOC: BICULT 12:25
PROVIDERS: ATTEND Internal Medicine Gastroenterology
DX: R14.0 Abdominal distension (gaseous) (principal); R14.3 Flatulence; R19.4 Change in bowel habit; R16.0 Hepatomegaly, not elsewhere classified; K76.0 Fatty (change of) liver, not elsewhere classified; Z90.49 Acquired absence of other specified parts of digestive tract
CPT/HCPCS: 76705

== ENCOUNTER 2020-08-01 16:23 | Outpatient (CLI) | payer MEDICARE, OTHER | END 2020-08-01 16:24 | disposition home or self-care (01) | LOC: BICULT 16:23 | PROVIDERS: ATTEND Internal Medicine | DX: I80.03 Phlebitis and thrombophlebitis of superficial vessels of lower extremities, bilateral (principal); M79.89 Other specified soft tissue disorders; R60.0 Localized edema | CPT/HCPCS: 93970 ==

== ENCOUNTER 2021-03-26 09:51 | Outpatient (CLI) | payer MEDICARE, OTHER ==
[2021-03-26 17:08] LABS: SARS-CoV-2 PCR by NAA Not Detected (NotDetected)
== END 2021-03-26 09:52 | disposition home or self-care (01) ==
LOC: LABBT 09:51
PROVIDERS: ATTEND Neurological Surgery
DX: Z01.812 Encounter for preprocedural laboratory examination (principal); G95.89 Other specified diseases of spinal cord; Z20.822 Contact with and (suspected) exposure to COVID-19
CPT/HCPCS: U0003; U0005

== ENCOUNTER 2021-03-31 10:04 | Day surgery (SDC) | payer MEDICARE, OTHER ==
[2021-03-28 11:43] VITALS: BMI 31.5
[2021-03-31] MEDS ORDERED: Magnevist 469MG/ML 20 ML VIAL ONE ×2 (10:50)
[2021-03-31] MEDS ORDERED: Propofol 1,000 MG/100 ML VIAL IV ONE (11:24)
[2021-03-31] MEDS ORDERED: Midazolam HCl 2 mg/2 ml Vial ONE (11:24)
[2021-03-31] MEDS ORDERED: Fentanyl 100 MCG/2 ML VIAL ONE (11:24)
[2021-03-31 11:46] LABS: Calc. Creatinine Clearance 142 mL/min (70-130)
[2021-03-31] MEDS ORDERED: Lidocaine 1% PF 5 ML VIAL ONE (12:00)
[2021-03-31] MEDS ORDERED: Ondansetron PF 4 MG/2 ML Vial ONE (12:00)
[2021-03-31] MEDS ORDERED: PHENYLEPHRINE-NS 100 MCG/ML 10 ML SYRINGE ONE (12:00)
[2021-03-31] MEDS ORDERED: Dexamethasone 20 MG/5 ML VIAL ONE (12:00)
[2021-03-31] MEDS ORDERED: PROPOFOL 200 MG/20 ML VIAL ONE (12:00)
== END 2021-03-31 15:12 | disposition home or self-care (01) ==
LOC: MRI 10:04 → EDSTATUS 12:00 → MRI 15:12
PROVIDERS: ATTEND Surgery
DX: I61.9 Nontraumatic intracerebral hemorrhage, unspecified (principal); E85.4 Organ-limited amyloidosis; I68.0 Cerebral amyloid angiopathy; Q04.8 Other specified congenital malformations of brain; G95.9 Disease of spinal cord, unspecified; M25.512 Pain in left shoulder; M54.9 Dorsalgia, unspecified; Z79.01 Long term (current) use of anticoagulants; Z79.4 Long term (current) use of insulin; Z79.84 Long term (current) use of oral hypoglycemic drugs; Z79.899 Other long term (current) drug therapy; Z88.0 Allergy status to penicillin; Z88.2 Allergy status to sulfonamides; Z88.5 Allergy status to narcotic agent
CPT/HCPCS: 36415; 36416; 70553; 72157; 82565; J1100; J2250; J2405; J2704; J3010

== ENCOUNTER 2021-04-03 11:44 | Outpatient (CLI) | payer MEDICARE, OTHER | END 2021-04-03 11:45 | disposition home or self-care (01) | LOC: BICRAD 11:44 | PROVIDERS: ATTEND Anesthesiology | DX: J18.9 Pneumonia, unspecified organism (principal) | CPT/HCPCS: 71046 ==

== ENCOUNTER 2021-10-30 12:47 | Emergency (ER) | payer MEDICARE, OTHER ==
[~2021-10-30 12:47] MED LIST changes: -ISOVUE-370 76%-LOCM 1 ML ONE; +Iopamidol-370 76% 500 ML 1 ML ONE
[2021-10-30 13:21] LABS: #Basophils 0.1 thou/uL (0.0-0.2); #Eosinphils 0.1 thou/uL (0.0-0.7); #Lymphocytes 2.1 thou/uL (1.20-3.40); #Monocytes 0.9 thou/uL (0.11-0.59); #Neutrophils 6.7 thou/uL (1.40-6.50); %Basophils 0.6 % (0.0-1.0); %Eosinophils 0.6 % (0.0-10.0); %Lymphocytes 21.7 % (21.0-51.0); %Monocytes 8.6 % (0.0-10.0); %Neutrophils 68.5 % (42.0-75.0); Hemoglobin 14.1 g/dL (14.0-18.0); Mean Corpuscular HGB CONC 32.7 g/dL (32.0-36.0); Mean Corpuscular Hemoglobin 30.8 pg (27.0-31.0); Mean Corpuscular Volume 94.3 fL (78.0-98.0); Mean Platelet Volume 7.2 fL (7.4-10.4); Platelet Count 214 thou/uL (130-400); Red Blood Cell (RBC) Count 4.58 mill/uL (4.70-6.10); White Blood Cell (WBC) Count 9.8 thou/uL (4.8-10.8)
[2021-10-30 13:48] LABS: ALT (SGPT) 23 U/L (8-55); AST (SGOT) 22 U/L (5-34); Alkaline Phosphatase 85 U/L (40-110); Anion Gap 14 mmol/L (10-20); BUN (Urea Nitrogen) 16 mg/dL (8.4-25.7); Bilirubin, Total 0.4 mg/dL (0.2-1.2); Calc. Creatinine Clearance 0 mL/min (70-130); Calcium 9.3 mg/dL (7.8-10.44); Carbon Dioxide 24 mmol/L (23-31); Chloride 104 mmol/L (98-107); Glucose 113 mg/dL (80-115); Potassium 4.4 mmol/L (3.5-5.1); Sodium 138 mmol/L (136-145)
[2021-10-30] MEDS ORDERED: Ondansetron PF 4 MG/2 ML Vial ONE (14:19)
[2021-10-30 14:30] LABS: INR-International Normal Ratio 1.1; Prothrombin Time 14.7 sec (12.0-14.7)
[2021-10-30 14:32] LABS: D-Dimer Test 0.45 *mcg/mL (0.27-0.43)
== END 2021-10-30 17:47 | disposition home or self-care (01) ==
LOC: ERS 12:47
DX: R53.1 Weakness (principal); I45.2 Bifascicular block; I10 Essential (primary) hypertension; E11.9 Type 2 diabetes mellitus without complications; E78.2 Mixed hyperlipidemia; Z79.4 Long term (current) use of insulin; Z86.718 Personal history of other venous thrombosis and embolism; Z86.711 Personal history of pulmonary embolism
CPT/HCPCS: 36415; 71045; 71275; 80053; 82550; 84484; 85025; 85379; 85610; 85730; 93005; 96361; 96374; J2405; Q9967

== ENCOUNTER 2021-11-25 10:30 | Observation (INO) | payer MEDICARE, OTHER ==
[~2021-11-25 10:30] MED LIST changes: +Gadobenate Dimeglumine 529 MG/1 ML (20ML VIAL) ONE; +ISOVUE-370 76%-LOCM 1 ML ONE; -Iopamidol-370 76% 500 ML 1 ML ONE
[2021-11-25 11:04] LABS: #Eosinphils 0.1 thou/uL (0.0-0.7); #Lymphocytes 1.7 thou/uL (1.20-3.40); #Monocytes 0.5 thou/uL (0.11-0.59); #Neutrophils 3.4 thou/uL (1.40-6.50); %Basophils 0.8 % (0.0-1.0); %Eosinophils 1.3 % (0.0-10.0); %Lymphocytes 29.9 % (21.0-51.0); %Monocytes 9.4 % (0.0-10.0); %Neutrophils 58.7 % (42.0-75.0); Hemoglobin 15.2 g/dL (14.0-18.0); Mean Corpuscular HGB CONC 32.1 g/dL (32.0-36.0); Mean Corpuscular Hemoglobin 30.4 pg (27.0-31.0); Mean Corpuscular Volume 94.7 fL (78.0-98.0); Mean Platelet Volume 7.5 fL (7.4-10.4); Platelet Count 213 thou/uL (130-400); RBC Distribution Width 13.4 % (11.5-14.5); Red Blood Cell (RBC) Count 4.99 mill/uL (4.70-6.10); White Blood Cell (WBC) Count 5.8 thou/uL (4.8-10.8)
[2021-11-25] MEDS ORDERED: Acetaminophen 325 MG TAB ONE (11:23)
[2021-11-25 11:28] LABS: ALT (SGPT) 24 U/L (8-55); AST (SGOT) 20 U/L (5-34); Albumin 4.1 g/dL (3.4-4.8); Alkaline Phosphatase 82 U/L (40-110); Anion Gap 17 mmol/L (10-20); BUN (Urea Nitrogen) 18 mg/dL (8.4-25.7); Bilirubin, Total 0.5 mg/dL (0.2-1.2); Calc. Creatinine Clearance 0 mL/min (70-130); Calcium 9.6 mg/dL (7.8-10.44); Carbon Dioxide 25 mmol/L (23-31); Chloride 100 mmol/L (98-107); Estimated GFR 83; Globulin 3.2 g/dL (2.4-3.5); Glucose 276 mg/dL (80-115); Potassium 5.1 mmol/L (3.5-5.1); Protein, Total 7.3 g/dL (5.8-8.1); Sodium 137 mmol/L (136-145)
[2021-11-25 12:23] LABS: Bilirubin Negative (Negative); Blood, Urine Negative (Negative); Clarity Clear (Clear); Glucose, Urine (Dipstick) Greater than 1000 mg/dL (Negative); Ketone, Urine Negative (Negative); Leukocyte Negative Leu/uL (Negative); Nitrite Negative (Negative); Protein, Urine (Dipstick) Negative (Neg-Trace); Specific Gravity, Urine 1.009 (1.002-1.036); Urobilinogen Normal mg/dL (Less than 2)
[2021-11-25] MEDS ORDERED: Ketorolac Tromethamine 30 MG/ML VIAL ONE (14:05)
[2021-11-25] MEDS ORDERED: Bisacodyl 5 MG TAB PO PRN (15:35)
[2021-11-25] MEDS ORDERED: Acetaminophen 325 MG TAB PO PRN (15:35)
[2021-11-25] MEDS ORDERED: Senokot S 8.6-50 MG TAB PO PRN (15:35)
[2021-11-25] MEDS ORDERED: Ondansetron PF 4 MG/2 ML Vial IVP PRN (15:35)
[2021-11-25] MEDS ORDERED: Cefepime 2 GM VIAL ONE (15:41)
[2021-11-25 17:35] VITALS: BMI 29.5
[2021-11-25] MEDS: Sodium Chloride 0.9% 1,000 ML IV SCH (17:42)
[2021-11-25] MEDS ORDERED: VANCOMYCIN 2 GRAM/500 ML BAG 2 GM in Premix Bag 1 BAG IVPB SCH (18:00)
[2021-11-25] MEDS: Famotidine/PF 20 mg/2ml Vial SLOW IVP SCH (20:44)
[2021-11-26] MEDS: Cefepime 2 GM in Sodium Chloride 0.9% 100 ML IVPB SCH ×2 (03:55→16:04)
[2021-11-26] MEDS: Sodium Chloride 0.9% 1,000 ML IV SCH ×2 (06:11→13:25)
[2021-11-26] MEDS: Vancomycin 1.5 GRAM/300 ML BAG 1.5 GM in Premix Bag 1 BAG IVPB SCH ×2 (07:13→17:42)
[2021-11-26] MEDS ORDERED: Lorazepam 2 MG/ML VIAL SLOW IVP SCH (08:30)
[2021-11-26] MEDS: Famotidine/PF 20 mg/2ml Vial SLOW IVP SCH ×2 (10:01→20:55)
[2021-11-26] MEDS ORDERED: Dextrose 50% Abboject 50 ML SYRINGE SLOW IVP PRN (15:30)
[2021-11-26] MEDS ORDERED: Dextrose 5% in Water 1,000 ML IV PRN (15:30)
[2021-11-26] MEDS ORDERED: Rivaroxaban 10 MG TAB PO SCH (17:00)
[2021-11-26] MEDS: Icosapent Ethyl 1 GM CAPSULE PO SCH (20:55)
[2021-11-26] MEDS ORDERED: HumuLIN 70/30 (300 UNITS/3 ML VIAL) SC SCH (21:00)
[2021-11-26] MEDS ORDERED: OLANZapine 2.5 MG TAB PO SCH (21:00)
[2021-11-26] MEDS ORDERED: Atorvastatin Calcium 10 MG TAB PO SCH (21:00)
[2021-11-27] MEDS: Sodium Chloride 0.9% 1,000 ML IV SCH ×2 (00:07→09:55)
[2021-11-27] MEDS: Cefepime 2 GM in Sodium Chloride 0.9% 100 ML IVPB SCH (04:19)
[2021-11-27] MEDS: Vancomycin 1.5 GRAM/300 ML BAG 1.5 GM in Premix Bag 1 BAG IVPB SCH ×2 (05:33→06:05)
[2021-11-27 06:00] LABS: Vancomycin, Trough 19.4 ug/mL
[2021-11-27] MEDS ORDERED: VANCOMYCIN 1.25 GM/250 ML BAG 1.25 GM in Premix Bag 1 BAG IVPB SCH (06:00)
[2021-11-27] MEDS: Famotidine/PF 20 mg/2ml Vial SLOW IVP SCH (07:47)
[2021-11-27] MEDS ORDERED: Glimepiride 4 MG TAB PO SCH (08:00)
[2021-11-27] MEDS: Icosapent Ethyl 1 GM CAPSULE PO SCH (08:58)
[2021-11-27] MEDS ORDERED: HumuLIN 70/30 (300 UNITS/3 ML VIAL) SC SCH (09:00)
[2021-11-27] MEDS ORDERED: Propranolol HCl LA 80 MG CAP PO SCH (09:00)
[2021-11-27] MEDS ORDERED: Lisinopril 2.5 MG TAB PO SCH (09:00)
[2021-11-27] MEDS ORDERED: Empagliflozin 25 MG TAB PO SCH (09:00)
[2021-11-27] MEDS ORDERED: Tamsulosin HCl 0.4 MG CAP PO SCH (09:00)
[2021-11-27 11:49] VITALS: BP 152/90; TEMP 97.5
== END 2021-11-27 14:15 | disposition home or self-care (01) ==
LOC: SUATTDRO 10:30 → ERS 10:30 → T4-A 15:22
PROVIDERS: ADMIT Internal Medicine; ATTEND Hospitalist
DX: M48.061 Spinal stenosis, lumbar region without neurogenic claudication (principal); I10 Essential (primary) hypertension; N40.0 Benign prostatic hyperplasia without lower urinary tract symptoms; Z20.822 Contact with and (suspected) exposure to COVID-19; E11.9 Type 2 diabetes mellitus without complications; E78.5 Hyperlipidemia, unspecified; E66.9 Obesity, unspecified; Z68.29 Body mass index [BMI] 29.0-29.9, adult; Z79.01 Long term (current) use of anticoagulants; Z79.4 Long term (current) use of insulin; Z79.84 Long term (current) use of oral hypoglycemic drugs; Z86.718 Personal history of other venous thrombosis and embolism; Z79.899 Other long term (current) drug therapy; Z88.0 Allergy status to penicillin; Z88.2 Allergy status to sulfonamides; Z88.5 Allergy status to narcotic agent; Z86.711 Personal history of pulmonary embolism
CPT/HCPCS: 72158; 74177; 80053; 80202; 81003; 82962 ×3; 83690; 85025; 85652; 86140; 87040; 93005; 94760; 96374; 96375; 97110; 97116; 99285; J3370 ×3; U0003; U0005; 36415; 36416; 96376; A9577; G0378; J0692; J1815; J1885; J2060; J3490; J7050; Q9966; S0028

== ENCOUNTER 2021-12-14 20:25 | Emergency (ER) | payer MEDICARE, OTHER ==
[~2021-12-14 20:25] MED LIST changes: -Gadobenate Dimeglumine 529 MG/1 ML (20ML VIAL) ONE; -ISOVUE-370 76%-LOCM 1 ML ONE; +Iopamidol-370 76% 500 ML 1 ML ONE
[2021-12-14 20:54] LABS: #Lymphocytes 1.2 thou/uL (1.20-3.40); #Monocytes 0.6 thou/uL (0.11-0.59); #Neutrophils 3.1 thou/uL (1.40-6.50); %Basophils 0.3 % (0.0-1.0); %Eosinophils 0.1 % (0.0-10.0); %Lymphocytes 24.9 % (21.0-51.0); %Neutrophils 62.7 % (42.0-75.0); Mean Corpuscular HGB CONC 32.8 g/dL (32.0-36.0); Mean Corpuscular Volume 94.3 fL (78.0-98.0); Platelet Count 159 thou/uL (130-400); RBC Distribution Width 13.6 % (11.5-14.5); Red Blood Cell (RBC) Count 5.18 mill/uL (4.70-6.10); White Blood Cell (WBC) Count 4.9 thou/uL (4.8-10.8)
[2021-12-14 21:14] LABS: ALT (SGPT) 27 U/L (8-55); AST (SGOT) 28 U/L (5-34); Albumin 4.2 g/dL (3.4-4.8); Alkaline Phosphatase 64 U/L (40-110); Anion Gap 18 mmol/L (10-20); BUN (Urea Nitrogen) 24 mg/dL (8.4-25.7); Bilirubin, Total 0.6 mg/dL (0.2-1.2); CK (CPK) 89 U/L (30-200); Calc. Creatinine Clearance 0 mL/min (70-130); Calcium 9.6 mg/dL (7.8-10.44); Carbon Dioxide 24 mmol/L (23-31); Chloride 99 mmol/L (98-107); Estimated GFR 72; Globulin 3.9 g/dL (2.4-3.5); Glucose 227 mg/dL (80-115); Potassium 4.1 mmol/L (3.5-5.1); Protein, Total 8.1 g/dL (5.8-8.1); Sodium 137 mmol/L (136-145)
[2021-12-15 00:52] LABS: Bilirubin Negative (Negative); Blood, Urine Negative (Negative); Clarity Clear (Clear); Glucose, Urine (Dipstick) Normal (Negative); Ketone, Urine 10 mg/dL (Negative); Leukocyte Negative Leu/uL (Negative); Nitrite Negative (Negative); Protein, Urine (Dipstick) 10 mg/dL (Neg-Trace); Urobilinogen Normal mg/dL (Less than 2); pH, Urine 5.5 (5.0-9.0)
[2021-12-15 00:53] LABS: Specific Gravity, Urine 1.055 (1.002-1.036)
== END 2021-12-15 01:31 | disposition home or self-care (01) ==
LOC: ERS 20:25
DX: E86.0 Dehydration (principal); R10.30 Lower abdominal pain, unspecified; I45.10 Unspecified right bundle-branch block; I10 Essential (primary) hypertension; E11.9 Type 2 diabetes mellitus without complications; E78.2 Mixed hyperlipidemia; Z86.718 Personal history of other venous thrombosis and embolism; Z79.4 Long term (current) use of insulin; Z79.01 Long term (current) use of anticoagulants; Z79.899 Other long term (current) drug therapy
CPT/HCPCS: 71045; 74177; 80053; 81003; 82550; 84484; 85025; 93005; 96360; Q9967

== ENCOUNTER 2022-07-10 09:41 | Emergency (ER) | payer MEDICARE, OTHER ==
[2022-07-10] MEDS ORDERED: Acetaminophen 500 MG TAB ONE (12:19)
[2022-07-10 12:31] LABS: #Eosinphils 0.1 thou/uL (0.0-0.7); #Lymphocytes 1.6 thou/uL (1.20-3.40); #Monocytes 0.5 thou/uL (0.11-0.59); #Neutrophils 4.6 thou/uL (1.40-6.50); %Basophils 0.3 % (0.0-1.0); %Lymphocytes 23.9 % (21.0-51.0); %Monocytes 7.5 % (0.0-10.0); %Neutrophils 67.2 % (42.0-75.0); Hemoglobin 15.3 g/dL (14.0-18.0); Mean Corpuscular HGB CONC 33.1 g/dL (32.0-36.0); Mean Corpuscular Volume 93.9 fl (78.0-98.0); Mean Platelet Volume 8.4 fL (7.4-10.4); Platelet Count 115 10x3/uL (130-400); RBC Distribution Width 13.3 % (11.5-14.5); Red Blood Cell (RBC) Count 4.93 mill/uL (4.70-6.10); White Blood Cell (WBC) Count 6.8 10x3/uL (4.8-10.8)
[2022-07-10 12:44] LABS: Platelet Morphology Comment Appears Decreased; RBC Morphology Normal
[2022-07-10 12:52] LABS: Bilirubin Negative (Negative); Blood, Urine Negative (Negative); Clarity Clear (Clear); Glucose, Urine (Dipstick) Normal (Negative); Ketone, Urine Negative (Negative); Leukocyte Negative Leu/uL (Negative); Nitrite Negative (Negative); Protein, Urine (Dipstick) Negative (Neg-Trace); Urobilinogen Normal mg/dL (Less than 2)
[2022-07-10 12:54] LABS: ALT (SGPT) 28 U/L (8-55); AST (SGOT) 29 U/L (5-34); Albumin 4.1 g/dL (3.4-4.8); Alkaline Phosphatase 68 U/L (40-110); Anion Gap 18 mmol/L (10-20); BUN (Urea Nitrogen) 15 mg/dL (8.4-25.7); Bilirubin, Total 0.9 mg/dL (0.2-1.2); Calc. Creatinine Clearance 0 mL/min (70-130); Calcium 9.9 mg/dL (7.8-10.44); Carbon Dioxide 19 mmol/L (23-31); Chloride 103 mmol/L (98-107); Estimated GFR 95; Globulin 3.2 g/dL (2.4-3.5); Glucose 169 mg/dL (80-115); Potassium 5.4 mmol/L (3.5-5.1); Protein, Total 7.3 g/dL (5.8-8.1); Sodium 135 mmol/L (136-145)
== END 2022-07-10 15:29 | disposition home or self-care (01) ==
LOC: ERS 09:41
DX: N48.1 Balanitis (principal); E11.9 Type 2 diabetes mellitus without complications; E78.2 Mixed hyperlipidemia; I10 Essential (primary) hypertension; Z79.899 Other long term (current) drug therapy; Z79.4 Long term (current) use of insulin
CPT/HCPCS: 36415; 76870; 80053; 81003; 85025; 93976

== ENCOUNTER 2022-09-15 12:19 | Outpatient (CLI) | payer MEDICARE, OTHER | END 2022-09-15 12:20 | disposition home or self-care (01) | LOC: ULT 12:19 | PROVIDERS: ATTEND Urology | DX: Z87.442 Personal history of urinary calculi (principal); N40.1 Benign prostatic hyperplasia with lower urinary tract symptoms | CPT/HCPCS: 76870; 81001; 87086; 93976 ==

== ENCOUNTER 2022-11-12 15:09 | Outpatient (CLI) | payer MEDICARE, OTHER | END 2022-11-12 15:10 | disposition home or self-care (01) | LOC: ULT 15:09 | PROVIDERS: ATTEND Internal Medicine | DX: N50.812 Left testicular pain (principal); N50.811 Right testicular pain; N50.3 Cyst of epididymis; N43.42 Spermatocele of epididymis, multiple | CPT/HCPCS: 76870; 93976 ==

== ENCOUNTER 2023-03-22 10:34 | Day surgery (SDC) | payer MEDICARE, OTHER ==
[2023-03-19 09:11] VITALS: BMI 338.9
== END 2023-03-22 14:54 | disposition home or self-care (01) ==
LOC: MRI 10:34
PROVIDERS: ATTEND Surgery
DX: D36.10 Benign neoplasm of peripheral nerves and autonomic nervous system, unspecified (principal); D18.00 Hemangioma unspecified site; Q28.3 Other malformations of cerebral vessels; D33.4 Benign neoplasm of spinal cord; E11.9 Type 2 diabetes mellitus without complications; I10 Essential (primary) hypertension; K21.9 Gastro-esophageal reflux disease without esophagitis; N40.0 Benign prostatic hyperplasia without lower urinary tract symptoms; Z86.718 Personal history of other venous thrombosis and embolism; Z86.711 Personal history of pulmonary embolism; Z98.890 Other specified postprocedural states; Z90.49 Acquired absence of other specified parts of digestive tract; Z88.0 Allergy status to penicillin; Z88.2 Allergy status to sulfonamides; Z88.5 Allergy status to narcotic agent; Z79.899 Other long term (current) drug therapy
CPT/HCPCS: 36416; 70553; 72157; 82565

== ENCOUNTER 2023-07-12 13:42 | Outpatient (CLI) | payer MEDICARE, OTHER | END 2023-07-12 13:43 | disposition home or self-care (01) | LOC: ULT 13:42 | PROVIDERS: ATTEND Urology | DX: N40.1 Benign prostatic hyperplasia with lower urinary tract symptoms (principal); N50.3 Cyst of epididymis; Z87.440 Personal history of urinary (tract) infections | CPT/HCPCS: 76870; 93976 ==

== ENCOUNTER 2024-03-24 21:19 | Inpatient (IN) | payer MEDICARE ==
[~2024-03-24 21:19] MED LIST changes: -Iopamidol-370 76% 500 ML 1 ML ONE; +Iopamidol-370 76% 500 ML MDV (1 ML CHARGE) ONE
[2024-03-24 22:13] LABS: #Basophils 0.03 10x3/uL (0.0-0.2); #Eosinophils Less than 0.03 10x3/uL (0.0-0.7); %Basophils 0.3 % (0.0-1.0); %Lymphocytes 2.9 % (21.0-51.0); %Monocytes 3.5 % (0.0-10.0); %Neutrophils 92.9 % (42.0-75.0); Hematocrit 47.5 % (42.0-52.0); Hemoglobin 15.6 g/dL (14.0-18.0); Mean Corpuscular HGB CONC 32.8 g/dL (32.0-36.0); Mean Corpuscular Hemoglobin 30.4 pg (27.0-31.0); Mean Corpuscular Volume 92.6 fL (78.0-98.0); Mean Platelet Volume 10.4 fL (7.4-10.4); Platelet Count 202 10x3/uL (130-400); RBC Distribution Width 14.2 % (11.5-14.5); Red Blood Cell (RBC) Count 5.13 mill/uL (4.70-6.10)
[2024-03-24 22:30] LABS: ALT (SGPT) 21 U/L (8-55); AST (SGOT) 16 U/L (5-34); Albumin 3.3 g/dL (3.4-4.8); Alkaline Phosphatase 66 U/L (40-110); Anion Gap 21 mmol/L (10-20); BUN (Urea Nitrogen) 34 mg/dL (8.4-25.7); Bilirubin, Total 0.7 mg/dL (0.2-1.2); Calc. Creatinine Clearance 0 mL/min (70-130); Calcium 8.2 mg/dL (7.8-10.44); Carbon Dioxide 15 mmol/L (23-31); Chloride 105 mmol/L (98-107); Estimated GFR 50; Globulin 3.7 g/dL (2.4-3.5); Glucose 319 mg/dL (80-115); Lipase 14 U/L (8-78); Potassium 3.5 mmol/L (3.5-5.1); Sodium 137 mmol/L (136-145)
[2024-03-24 22:34] LABS: Troponin I Less than 0.010 ng/mL (< 0.028)
[2024-03-24] MEDS ORDERED: Ondansetron PF 4 MG/2 ML Vial ONE (23:10)
[2024-03-25 00:04] LABS: INR-International Normal Ratio 1.2; Prothrombin Time 15.3 sec (12.0-14.7)
[2024-03-25 00:30] LABS: Magnesium 1.1 mg/dL (1.6-2.6)
[2024-03-25] MEDS ORDERED: Dextrose 5% in Water 1,000 ML IV PRN (00:50)
[2024-03-25] MEDS ORDERED: Glucagon 1 MG/ML KIT IM PRN (00:50)
[2024-03-25] MEDS ORDERED: Ondansetron ODT 4 MG TAB PO PRN (00:50)
[2024-03-25] MEDS ORDERED: Dextrose 50% Abboject 50 ML SYRINGE SLOW IVP PRN (00:50)
[2024-03-25] MEDS ORDERED: Ondansetron PF 4 MG/2 ML Vial IVP PRN (00:50)
[2024-03-25] MEDS ORDERED: Acetaminophen 325 MG TAB PO PRN (00:50)
[2024-03-25 00:55] LABS: Lactic Acid 3.22 mmol/L (0.5-2.2)
[2024-03-25] MEDS: Sodium Bicarb 50 mEq/50 ML VIAL IVP SCH (01:54)
[2024-03-25] MEDS: Lactated Ringer's 1,000 ML IV SCH ×2 (02:50→22:32)
[2024-03-25 04:30] LABS: #Basophils Less than 0.03 10x3/uL (0.0-0.2); #Eosinophils Less than 0.03 10x3/uL (0.0-0.7); %Basophils 0.2 % (0.0-1.0); %Lymphocytes 6.3 % (21.0-51.0); %Monocytes 7.1 % (0.0-10.0); %Neutrophils 86.2 % (42.0-75.0); Hematocrit 37.7 % (42.0-52.0); Hemoglobin 12.7 g/dL (14.0-18.0); Mean Corpuscular HGB CONC 33.7 g/dL (32.0-36.0); Mean Corpuscular Hemoglobin 30.7 pg (27.0-31.0); Mean Corpuscular Volume 91.1 fL (78.0-98.0); Mean Platelet Volume 10.3 fL (7.4-10.4); Platelet Count 160 10x3/uL (130-400); RBC Distribution Width 14.1 % (11.5-14.5); Red Blood Cell (RBC) Count 4.14 mill/uL (4.70-6.10)
[2024-03-25 04:31] LABS: Lactic Acid 2.95 mmol/L (0.5-2.2)
[2024-03-25 04:42] LABS: Anion Gap 15 mmol/L (10-20); BUN (Urea Nitrogen) 38 mg/dL (8.4-25.7); Calc. Creatinine Clearance 73 mL/min (70-130); Calcium 7.3 mg/dL (7.8-10.44); Carbon Dioxide 22 mmol/L (23-31); Chloride 105 mmol/L (98-107); Estimated GFR 64; Glucose 233 mg/dL (80-115); Magnesium 0.9 mg/dL (1.6-2.6); Sodium 139 mmol/L (136-145)
[2024-03-25] MEDS: Magnesium Sulfate In Water 4 GM in Premix 1 BAG IVPB SCH (04:45)
[2024-03-25] MEDS: Potassium Chloride 20 MEQ TAB PO SCH (09:24)
[2024-03-25] MEDS: NS 0.9% w/ 20 MEQ KCL 1,000 ML/1,000 ML BAG IV SCH (09:27)
[2024-03-25 14:51] VITALS: BMI 28.3
[2024-03-25 16:31] LABS: Campy jejuni + coli by PCR Negative (Negative); STEC Shiga Toxin 1+2 Negative (Negative); Salmonella spp. by PCR Negative (Negative); Shigella spp + EIEC by PCR Negative (Negative)
[2024-03-25] MEDS: Rivaroxaban 10 MG TAB PO SCH (17:56)
[2024-03-25] MEDS: OLANZapine 2.5 MG TAB PO SCH (19:49)
[2024-03-25] MEDS: Divalproex Sodium 250 MG (DR) TAB PO SCH (19:49)
[2024-03-26 04:10] LABS: #Basophils Less than 0.03 10x3/uL (0.0-0.2); %Basophils 0.3 % (0.0-1.0); %Eosinophils 1.5 % (0.0-10.0); %Lymphocytes 24.9 % (21.0-51.0); %Monocytes 13.9 % (0.0-10.0); %Neutrophils 59.1 % (42.0-75.0); Hematocrit 35.3 % (42.0-52.0); Hemoglobin 11.9 g/dL (14.0-18.0); Mean Corpuscular HGB CONC 33.7 g/dL (32.0-36.0); Mean Corpuscular Hemoglobin 30.4 pg (27.0-31.0); Mean Corpuscular Volume 90.3 fL (78.0-98.0); Mean Platelet Volume 10.8 fL (7.4-10.4); Platelet Count 157 10x3/uL (130-400); RBC Distribution Width 14.4 % (11.5-14.5); Red Blood Cell (RBC) Count 3.91 mill/uL (4.70-6.10)
[2024-03-26 04:40] LABS: Anion Gap 12 mmol/L (10-20); BUN (Urea Nitrogen) 25 mg/dL (8.4-25.7); Calc. Creatinine Clearance 137 mL/min (70-130); Calcium 7.1 mg/dL (7.8-10.44); Carbon Dioxide 22 mmol/L (23-31); Chloride 108 mmol/L (98-107); Estimated GFR 101; Glucose 157 mg/dL (80-115); Potassium 3.6 mmol/L (3.5-5.1); Sodium 138 mmol/L (136-145)
[2024-03-26] MEDS ORDERED: Tamsulosin HCl 0.4 MG CAP PO SCH (09:00)
[2024-03-26] MEDS ORDERED: Lisinopril 2.5 MG TAB PO SCH (09:00)
[2024-03-26] MEDS ORDERED: Propranolol HCl LA 80 MG CAP PO SCH (09:00)
[2024-03-27 04:56] LABS: #Basophils Less than 0.03 10x3/uL (0.0-0.2); %Basophils 0.5 % (0.0-1.0); %Eosinophils 1.2 % (0.0-10.0); %Lymphocytes 28.2 % (21.0-51.0); %Monocytes 13.1 % (0.0-10.0); %Neutrophils 56.5 % (42.0-75.0); Hematocrit 34.2 % (42.0-52.0); Hemoglobin 11.6 g/dL (14.0-18.0); Mean Corpuscular HGB CONC 33.9 g/dL (32.0-36.0); Mean Corpuscular Hemoglobin 30.1 pg (27.0-31.0); Mean Corpuscular Volume 88.8 fL (78.0-98.0); Mean Platelet Volume 9.9 fL (7.4-10.4); Platelet Count 165 10x3/uL (130-400); Red Blood Cell (RBC) Count 3.85 mill/uL (4.70-6.10)
[2024-03-27 05:19] LABS: Anion Gap 14 mmol/L (10-20); BUN (Urea Nitrogen) 15 mg/dL (8.4-25.7); Calc. Creatinine Clearance 128 mL/min (70-130); Carbon Dioxide 22 mmol/L (23-31); Chloride 108 mmol/L (98-107); Estimated GFR 99; Glucose 180 mg/dL (80-115); Sodium 140 mmol/L (136-145)
[2024-03-27] MEDS: Lisinopril 2.5 MG TAB PO SCH (08:29)
[2024-03-27] MEDS: Aspirin Chewable 81 MG TAB PO SCH (10:01)
[2024-03-27] MEDS: Icosapent Ethyl 1 GM CAPSULE PO SCH ×2 (10:01→16:35)
[2024-03-27] MEDS: Propranolol HCl LA 80 MG CAP PO SCH (10:45)
[2024-03-27] MEDS: Insulin Lispro 100 UNIT/ML 10 ML VIAL SC PRN ×2 (10:46→20:35)
[2024-03-27] MEDS ORDERED: Amlodipine 10 MG TAB PO SCH (14:30)
[2024-03-27] MEDS: Amlodipine 5 MG TAB PO SCH (14:37)
[2024-03-28 07:34] VITALS: BP 166/80; TEMP 97.5
[2024-03-28] MEDS: Lisinopril 2.5 MG TAB PO SCH (08:07)
== END 2024-03-28 11:10 | disposition home or self-care (01) | DRG 392 ==
LOC: ERS 21:19 → 2NO 03-25 00:11 → OBSVTOIN 03-25 12:23
PROVIDERS: ADMIT Internal Medicine; ATTEND Internal Medicine
DX: A08.4 Viral intestinal infection, unspecified (principal); E87.20 Acidosis, unspecified; N17.9 Acute kidney failure, unspecified; E78.5 Hyperlipidemia, unspecified; I10 Essential (primary) hypertension; F31.9 Bipolar disorder, unspecified; E83.42 Hypomagnesemia; E11.65 Type 2 diabetes mellitus with hyperglycemia; E86.0 Dehydration; E87.6 Hypokalemia; I95.9 Hypotension, unspecified; Z88.0 Allergy status to penicillin; Z88.5 Allergy status to narcotic agent; Z79.4 Long term (current) use of insulin; Z88.2 Allergy status to sulfonamides; Z79.899 Other long term (current) drug therapy
CPT/HCPCS: 36415; 36416; 74177; 80048; 80053; 83605; 83690; 83735; 84484; 85025; 85610; 85730; 87324; 87449; 87505; 93005; 96374; 96375; G0378; J2405; J3475; J3480; J7120; Q9967

== ENCOUNTER 2024-06-18 01:36 | Emergency (ER) | payer MEDICARE ==
[2024-06-18] MEDS ORDERED: Morphine 4 MG/ML VIAL ONE (04:17)
[2024-06-18] MEDS ORDERED: Ondansetron PF 4 MG/2 ML Vial ONE (04:17)
[2024-06-18 05:02] LABS: #Basophils 0.04 10x3/uL (0.0-0.2); %Basophils 0.5 % (0.0-1.0); %Eosinophils 1.7 % (0.0-10.0); %Lymphocytes 27.5 % (21.0-51.0); %Monocytes 9.6 % (0.0-10.0); %Neutrophils 60.3 % (42.0-75.0); Hematocrit 38.7 % (42.0-52.0); Mean Corpuscular HGB CONC 33.6 g/dL (32.0-36.0); Mean Corpuscular Hemoglobin 29.5 pg (27.0-31.0); Mean Platelet Volume 10.2 fL (7.4-10.4); Platelet Count 205 10x3/uL (130-400); RBC Distribution Width 14.6 % (11.5-14.5)
[2024-06-18 05:35] LABS: ALT (SGPT) 20 U/L (Less than 45); AST (SGOT) 24 U/L (11-34); Albumin 3.3 g/dL (3.1-4.5); Alkaline Phosphatase 77 U/L (40-110); Anion Gap 15 mmol/L (10-20); BUN (Urea Nitrogen) 18 mg/dL (8.4-25.7); Calc. Creatinine Clearance 0 mL/min (70-130); Calcium 9.1 mg/dL (7.8-10.44); Carbon Dioxide 21 mmol/L (23-31); Chloride 107 mmol/L (98-107); Estimated GFR 103; Globulin 3.5 g/dL (2.4-3.5); Glucose 141 mg/dL (80-115); Lipase 31 U/L (8-78); Potassium 4.1 mmol/L (3.5-5.1); Protein, Total 6.8 g/dL (5.8-8.1); Sodium 139 mmol/L (136-145)
[2024-06-18 06:13] LABS: Bilirubin, Total 0.7 mg/dL (0.3-1.2)
[2024-06-18 07:57] LABS: Bacteria/HPF None Seen HPF (None Seen); Bilirubin Negative (Negative); Blood, Urine Negative (Negative); CAUTI Indications for Culture Dysuria,urgency,freq; Clarity Clear (Clear); Glucose, Urine (Dipstick) Normal (Negative); Ketone, Urine 10 mg/dL (Negative); Leukocyte Negative Leu/uL (Negative); Nitrite Negative (Negative); Protein, Urine (Dipstick) 10 mg/dL (Neg-Trace); RBC/HPF 0-3 HPF (0-3); Squamous Epithelial 0-3 HPF (0-3); WBC/HPF 0-3 HPF (0-3)
[2024-06-18 08:11] LABS: Specific Gravity, Urine Greater than 1.060 (1.002-1.036); Urine Culture Reflex No No
[2024-06-18] MEDS ORDERED: Iopamidol 370 76% 100 ML VIAL ONE (10:50)
== END 2024-06-18 09:22 | disposition home or self-care (01) ==
LOC: ERS 01:36
DX: R11.2 Nausea with vomiting, unspecified (principal); R10.84 Generalized abdominal pain; E11.9 Type 2 diabetes mellitus without complications; I10 Essential (primary) hypertension; Z55.6 Problems related to health literacy; Z79.01 Long term (current) use of anticoagulants; Z79.899 Other long term (current) drug therapy; Z86.718 Personal history of other venous thrombosis and embolism
CPT/HCPCS: 74177; 80053; 81001; 83690; 85025; 93005; J2270; J2405

== ENCOUNTER 2024-06-19 13:39 | Outpatient (CLI) | payer MEDICARE | END 2024-06-19 13:40 | disposition home or self-care (01) | LOC: ULT 13:39 | PROVIDERS: ATTEND Urology | DX: N40.1 Benign prostatic hyperplasia with lower urinary tract symptoms (principal); I86.1 Scrotal varices; Z87.440 Personal history of urinary (tract) infections; Z87.442 Personal history of urinary calculi | CPT/HCPCS: 76870; 93976 ==

== ENCOUNTER 2024-12-22 16:38 | Inpatient (IN) | payer MEDICARE ==
[2024-12-22 17:13] LABS: #Basophils 0.03 10x3/uL (0.0-0.2); #Eosinophils 0.05 10x3/uL (0.0-0.7); #Monocytes 0.55 10x3/uL (0.11-0.59); #Neutrophils 3.47 10x3/uL (1.40-6.50); %Basophils 0.5 % (0.0-1.0); %Eosinophils 0.9 % (0.0-10.0); %Lymphocytes 29.4 % (21.0-51.0); %Monocytes 9.5 % (0.0-10.0); %Neutrophils 59.5 % (42.0-75.0); Hematocrit 40.3 % (42.0-52.0); Hemoglobin 13.5 g/dL (14.0-18.0); Mean Corpuscular Hemoglobin 29.6 pg (27.0-31.0); Mean Corpuscular Volume 88.4 fL (78.0-98.0); Platelet Count 181 10x3/uL (130-400); Red Blood Cell (RBC) Count 4.56 mill/uL (4.70-6.10); White Blood Cell (WBC) Count 5.82 10x3/uL (4.8-10.8)
[2024-12-22 17:29] LABS: ALT (SGPT) 36 U/L (Less than 45); AST (SGOT) 39 U/L (11-34); Albumin 3.9 g/dL (3.1-4.5); Alkaline Phosphatase 59 U/L (40-110); Anion Gap 20 mmol/L (10-20); BUN (Urea Nitrogen) 15 mg/dL (8.4-25.7); Bilirubin, Total 0.7 mg/dL (0.3-1.2); Calc. Creatinine Clearance 0 mL/min (70-130); Calcium 9.2 mg/dL (7.8-10.44); Carbon Dioxide 21 mmol/L (23-31); Chloride 102 mmol/L (98-107); Globulin 3.4 g/dL (2.4-3.5); Glucose 162 mg/dL (80-115); Potassium 4.2 mmol/L (3.5-5.1); Sodium 139 mmol/L (136-145)
[2024-12-22 17:34] LABS: Troponin I Less than 0.010 ng/mL (< 0.028)
[2024-12-22 18:51] LABS: INR-International Normal Ratio 1.3; PTT 37.2 sec (22.9-36.1); Prothrombin Time 16.3 sec (12.0-14.7)
[2024-12-22] MEDS ORDERED: Ondansetron PF 4 MG/2 ML Vial ONE (20:06)
[2024-12-22] MEDS ORDERED: hydrALAZINE 20 MG/ML VIAL SLOW IVP PRN (21:21)
[2024-12-22] MEDS ORDERED: Senokot S 8.6-50 MG TAB PO PRN (21:21)
[2024-12-22] MEDS ORDERED: Ondansetron PF 4 MG/2 ML Vial IVP PRN (21:21)
[2024-12-22] MEDS ORDERED: Calcium Carbonate 500 MG ChewTAB PO PRN (21:21)
[2024-12-22] MEDS ORDERED: Glucagon 1 MG/ML KIT IM PRN (22:34)
[2024-12-22] MEDS ORDERED: Dextrose 50% Abboject 50 ML SYRINGE SLOW IVP PRN (22:34)
[2024-12-23 04:11] LABS: #Basophils 0.03 10x3/uL (0.0-0.2); #Eosinophils 0.05 10x3/uL (0.0-0.7); #Monocytes 0.46 10x3/uL (0.11-0.59); #Neutrophils 2.34 10x3/uL (1.40-6.50); %Basophils 0.7 % (0.0-1.0); %Eosinophils 1.1 % (0.0-10.0); %Lymphocytes 36.8 % (21.0-51.0); %Monocytes 10.1 % (0.0-10.0); %Neutrophils 51.1 % (42.0-75.0); Hematocrit 37.2 % (42.0-52.0); Hemoglobin 12.3 g/dL (14.0-18.0); Mean Corpuscular Hemoglobin 28.7 pg (27.0-31.0); Mean Corpuscular Volume 86.9 fL (78.0-98.0); Platelet Count 155 10x3/uL (130-400); Red Blood Cell (RBC) Count 4.28 mill/uL (4.70-6.10); White Blood Cell (WBC) Count 4.57 10x3/uL (4.8-10.8)
[2024-12-23 04:42] LABS: ALT (SGPT) 30 U/L (Less than 45); AST (SGOT) 26 U/L (11-34); Albumin 3.4 g/dL (3.1-4.5); Alkaline Phosphatase 51 U/L (40-110); Anion Gap 16 mmol/L (10-20); BUN (Urea Nitrogen) 20 mg/dL (8.4-25.7); Bilirubin, Total 0.5 mg/dL (0.3-1.2); Calc. Creatinine Clearance 120 mL/min (70-130); Calcium 8.6 mg/dL (7.8-10.44); Carbon Dioxide 25 mmol/L (23-31); Cardiac Risk 6.8 (Less than 4.5); Chloride 102 mmol/L (98-107); Cholesterol 122 mg/dl (< 200 Desired); Globulin 3.1 g/dL (2.4-3.5); Glucose 184 mg/dL (80-115); HDL Cholesterol 18 mg/dL (>60 Neg Risk); Magnesium 1.4 mg/dL (1.6-2.6); Potassium 4.1 mmol/L (3.5-5.1); Sodium 139 mmol/L (136-145); Triglycerides 403 mg/dL (Less than 150)
[2024-12-23] MEDS ORDERED: Divalproex Sodium 500 MG ER.TAB ONE (08:36)
[2024-12-23] MEDS ORDERED: Aspirin Chewable 81 MG TAB ONE (08:37)
[2024-12-23] MEDS: Aspirin 81 mg Enteric Coated Tablet PO SCH (08:59)
[2024-12-23] MEDS: Divalproex Sodium 500 MG ER.TAB PO SCH (09:00)
[2024-12-23] MEDS ORDERED: Acetaminophen 325 MG TAB ONE (11:59)
[2024-12-23] MEDS: Acetaminophen 325 MG TAB PO PRN (12:06)
[2024-12-23 17:26] VITALS: BMI 30.5
[2024-12-23] MEDS: OLANZapine 2.5 MG TAB PO SCH (20:38)
[2024-12-24 05:41] LABS: #Basophils Less than 0.03 10x3/uL (0.0-0.2); #Eosinophils 0.03 10x3/uL (0.0-0.7); #Monocytes 0.39 10x3/uL (0.11-0.59); #Neutrophils 1.80 10x3/uL (1.40-6.50); %Basophils 0.6 % (0.0-1.0); %Eosinophils 0.8 % (0.0-10.0); %Lymphocytes 36.6 % (21.0-51.0); %Monocytes 11.0 % (0.0-10.0); %Neutrophils 50.7 % (42.0-75.0); Hematocrit 38.1 % (42.0-52.0); Hemoglobin 12.5 g/dL (14.0-18.0); Mean Corpuscular Hemoglobin 28.7 pg (27.0-31.0); Mean Corpuscular Volume 87.4 fL (78.0-98.0); Platelet Count 154 10x3/uL (130-400); Red Blood Cell (RBC) Count 4.36 mill/uL (4.70-6.10); White Blood Cell (WBC) Count 3.55 10x3/uL (4.8-10.8)
[2024-12-24 05:52] LABS: Anion Gap 14 mmol/L (10-20); BUN (Urea Nitrogen) 16 mg/dL (8.4-25.7); Calc. Creatinine Clearance 107 mL/min (70-130); Calcium 9.3 mg/dL (7.8-10.44); Carbon Dioxide 28 mmol/L (23-31); Chloride 101 mmol/L (98-107); Glucose 224 mg/dL (80-115); Potassium 4.9 mmol/L (3.5-5.1); Sodium 138 mmol/L (136-145)
[2024-12-24] MEDS: Insulin Glargine 30 UNITS/0.3 ML VIAL SC SCH (12:07)
[2024-12-24] MEDS: Magnesium 2 GM/50 ML(in water) 2 GM in Premix 1 BAG IVPB SCH (13:09)
[2024-12-25 05:52] LABS: #Basophils 0.03 10x3/uL (0.0-0.2); #Eosinophils 0.04 10x3/uL (0.0-0.7); #Monocytes 0.41 10x3/uL (0.11-0.59); #Neutrophils 2.35 10x3/uL (1.40-6.50); %Basophils 0.7 % (0.0-1.0); %Eosinophils 0.9 % (0.0-10.0); %Lymphocytes 34.1 % (21.0-51.0); %Monocytes 9.5 % (0.0-10.0); %Neutrophils 54.6 % (42.0-75.0); Hematocrit 40.9 % (42.0-52.0); Hemoglobin 13.6 g/dL (14.0-18.0); Mean Corpuscular Hemoglobin 29.4 pg (27.0-31.0); Mean Corpuscular Volume 88.3 fL (78.0-98.0); Platelet Count 173 10x3/uL (130-400); Red Blood Cell (RBC) Count 4.63 mill/uL (4.70-6.10); White Blood Cell (WBC) Count 4.31 10x3/uL (4.8-10.8)
[2024-12-25 06:06] LABS: Anion Gap 14 mmol/L (10-20); BUN (Urea Nitrogen) 15 mg/dL (8.4-25.7); Calc. Creatinine Clearance 134 mL/min (70-130); Calcium 9.6 mg/dL (7.8-10.44); Carbon Dioxide 26 mmol/L (23-31); Chloride 101 mmol/L (98-107); Glucose 210 mg/dL (80-115); Magnesium 1.5 mg/dL (1.6-2.6); Potassium 4.5 mmol/L (3.5-5.1); Sodium 136 mmol/L (136-145)
[2024-12-25] MEDS: Magnesium 2 GM/50 ML(in water) 2 GM in Premix 1 BAG IVPB SCH (09:36)
[2024-12-25 11:14] VITALS: BP 140/83; TEMP 97.8
== END 2024-12-25 14:05 | disposition home health service (06) | DRG 92 ==
LOC: SUATTDRO 16:38 → ERS 16:38 → ERHOLD 20:34 → OBS 12-23 15:48 → OBSVTOIN 12-24 17:23
PROVIDERS: ADMIT Internal Medicine; ATTEND Internal Medicine
DX: R20.2 Paresthesia of skin (principal); E85.4 Organ-limited amyloidosis; E83.42 Hypomagnesemia; E66.9 Obesity, unspecified; R29.810 Facial weakness; F31.9 Bipolar disorder, unspecified; I10 Essential (primary) hypertension; E78.5 Hyperlipidemia, unspecified; Z88.0 Allergy status to penicillin; Z88.2 Allergy status to sulfonamides; E11.9 Type 2 diabetes mellitus without complications; Z79.899 Other long term (current) drug therapy; J38.00 Paralysis of vocal cords and larynx, unspecified; F39 Unspecified mood [affective] disorder; I68.0 Cerebral amyloid angiopathy
CPT/HCPCS: 36415; 36416; 70450; 70496; 70498; 71045; 80048; 80053; 80061; 80164; 83036; 83735; 84145; 84443; 84484; 85025; 85610; 85730; 93005; 93306; 94760; 96374; 96375; G0378; J1815; J2405; J3475; J7030; Q9967

== ENCOUNTER 2025-02-26 10:41 | Emergency (ER) | payer MEDICARE ==
[2025-02-26] MEDS ORDERED: Acetaminophen 325 MG TAB ONE (13:55)
== END 2025-02-26 13:59 | disposition home or self-care (01) ==
LOC: ERS 10:41
DX: L03.116 Cellulitis of left lower limb (principal); E11.9 Type 2 diabetes mellitus without complications; I10 Essential (primary) hypertension; E78.5 Hyperlipidemia, unspecified; Z79.84 Long term (current) use of oral hypoglycemic drugs; Z79.4 Long term (current) use of insulin; Z79.85 Long-term (current) use of injectable non-insulin antidiabetic drugs; Z79.899 Other long term (current) drug therapy

== ENCOUNTER 2025-04-05 12:31 | Outpatient (CLI) | payer MEDICARE | END 2025-04-05 12:32 | disposition home or self-care (01) | LOC: ULT 12:31 | PROVIDERS: ATTEND Urology | DX: I86.1 Scrotal varices (principal); N50.3 Cyst of epididymis | CPT/HCPCS: 76870; 93976 ==